=== PATIENT | female | born 1970 | race Caucasian/White ===

== ENCOUNTER 2017-01-02 22:02 | Emergency (ER) | payer OTHER ==
[2017-01-02 22:16] VITALS: BP 117/68; PULSE 76; TEMP 97.6; BMI 27.2
--- NOTE | 2017-01-03 00:23 | PDOC ---
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 Patient reports she is being follow-up by neurology for her dizziness and is scheduled to have a MRI next week. She states having basic lab work done, but does not know results. Patient also has complaints of occasional fatigue, midsternal chest discomfort, lightheadedness, confusion, and nervousness. The patient denies fever, chills, cough, SOB, chest pain, and palpitations. The patient denies abdominal pain, nausea, vomiting, and diarrhea. Allergies: NKDA Social History: Denies alcohol, tobacco, or drug use. Past Surgical History: brain AVM in 1988 PCP: Dr. Vicki Monteiro <Tamia Orozco - Last Filed: 01/03/17 02:50> - General History Source: Patient <Tom Márquez - Last Filed: 01/03/17 03:06> - General Chief Complaint: Lightheaded Stated Complaint: LIGHTHEADED Time Seen by Provider: 01/03/17 00:22 Past History <Tamia Orozco - Last Filed: 01/03/17 02:50> - Past Medical History Other medical history: RA, brain AVM - Surgical History Neurologic Surgery: Yes (BRAIN) - Psycho/Social/Smoking Cessation Hx Anxiety: No Suicidal Ideation: No Smoking History: Never smoked Information on smoking cessation initiated: No Hx Alcohol Use: No Drug/Substance Use Hx: No Substance Use Type: None <Tom Márquez - Last Filed: 01/03/17 03:06> - Past Medical History Allergies/Adverse Reactions: Allergies Allergy/AdvReac Type Severity Reaction Status Date / Time No Known Allergies Allergy Verified 01/02/17 22:12 Home Medications: Ambulatory Orders Cephalexin Monohydrate [Keflex -] 500 mg PO BID #14 capsule 01/03/17 Review of Systems - Review of Systems Able to Perform ROS?: Yes Comments:: 01/03/17 00:45 CONSTITUTIONAL: +fatigue Absent: fever, no chills EYES: Absent: visual changes ENT: Absent: ear pain, no sore throat CARDIOVASCULAR: +midsternal chest discomfort, lightheadedness Absent: chest pain, no palpitations RESPIRATORY: Absent: cough, no SOB GI: Absent: abdominal pain, no nausea, no vomiting, no constipation, no diarrhea GENITOURINARY: Absent: dysuria, no frequency, no hematuria MUSKULOSKELETAL: Absent: back pain, no arthralgia, no myalgia SKIN: Absent: rash NEURO: +dizziness Absent: headache PSYCH: +nervousness <Tamia Orozco - Last Filed: 01/03/17 02:50> *Physical Exam - Vital Signs Last Vital Signs Temp Pulse Resp BP Pulse Ox 97.6 F 76 18 117/68 98 01/02/17 22:12 01/02/17 22:12 01/02/17 22:12 01/02/17 22:12 01/02/17 22:12 - Physical Exam Comments: 01/03/17 00:45 GENERAL: Well-appearing, well-nourished. No apparent distress. HEENT: Normocephalic, atraumatic. PERRL, EOM intact. CARDIOVASCULAR: Normal S1, S2. Regular rate and rhythm. PULMONARY: Clear to auscultation bilaterally. ABDOMEN: Soft, non-distended, non-tender. EXTREMITIES: Normal ROM in all four extremities. No gross deformities. SKIN: Warm, dry. No rash NEUROLOGICAL: No focal neurological deficits. <Tamia Orozco - Last Filed: 01/03/17 02:50> - Vital Signs Last Vital Signs Temp Pulse Resp BP Pulse Ox 97.6 F 76 18 117/68 98 01/02/17 22:12 01/02/17 22:12 01/02/17 22:12 01/02/17 22:12 01/02/17 22:12 <Tom Márquez - Last Filed: 01/03/17 03:06> ED Treatment Course - LABORATORY CBC & Chemistry Diagram: 01/03/17 01:10 01/03/17 01:10 - RADIOLOGY Radiograph Interpretation: 01/03/17 02:50 EXAM: CT of the brain without contrast. Reviewed by Imaging impregnation operator: There is no intra/extra-axial hemorrhage, vasogenic edema/focal mass effect, CT evidence of acute infarction, interval ventriculomegaly or gross change except for absence of the right sphenoid sinus disease present on the prior. Impression: no hemorrhage or gross acute infarct. <Taima Orozco - Last Filed: 01/03/17 02:50> - LABORATORY CBC & Chemistry Diagram: 01/03/17 01:10 01/03/17 01:10 <Tom Márquez - Last Filed: 01/03/17 03:06> Medical Decision Making - Medical Decision Making 01/03/17 03:05 Dr. Márquez: The scribe's documentation has been prepared under my direction and personally reviewed by me in its entirery. I confirm that the note above accurately reflects all work, treatment, procedures, and medical decision making performed by me. Head CT,blood work return to be normal. Patient found to have early urinary tract infection. Will treat with Keflex 500 twice a day. Patient advised to continue her appointment with neurology <Tom Márquez - Last Filed: 01/03/17 03:06> *DC/Admit/Observation/Transfer - Attestations Scribe Attestion: 01/03/17 00:45 Documentation prepared by Tamia Orozco, acting as medical oncologist for Tom Márquez MD <Tamia Orozco - Last Filed: 01/03/17 02:50> - Discharge Dispostion Admit: No <Tom Márquez - Last Filed: 01/03/17 03:06> Diagnosis at time of Disposition: Lightheaded UTI (urinary tract infection) Qualifiers: Urinary tract infection type: site unspecified Hematuria presence: without hematuria Qualified Code(s): N39.0 - Urinary tract infection, site not specified - Discharge Dispostion Disposition: HOME Condition at time of disposition: Stable - Prescriptions Prescriptions: Cephalexin Monohydrate [Keflex -] 500 mg PO BID #14 capsule - Referrals Referrals: Vicki Wild MD [Primary Care Provider] - - Patient Instructions Printed Discharge Instructions: DI for Urinary Tract Infection (UTI), DI for Dizziness-Nonvertigo
[2017-01-03 01:22] LABS: BASOPHIL 1.2 % (0-2.0); EOSINOPHIL 4.1 % (0-4.5); MCH 23.6 pg (25.7-33.7); MCHC 31.7 g/dl (32.0-36.0); MEAN CELL VOLUME 74.4 fl (80-96); MEAN PLT VOLUME 8.4 fl (7.5-11.1); NEUTROPHILS 66.1 % (42.8-82.8); PLATELET COUNT 286 K/MM3 (134-434); RDW 16.7 % (11.6-15.6); WHITE BLOOD COUNT 7.5 K/mm3 (4.0-10.0)
[2017-01-03 01:46] LABS: INR 1.04 (0.82-1.09); PROTHROMBIN TIME (PATIENT) 11.5 SEC (9.98-11.88)
[2017-01-03 01:56] LABS: ALBUMIN 3.8 g/dl (3.4-5.0); ANION GAP 8 (8-16); CALCIUM 8.5 mg/dL (8.5-10.1); CO2 28 mmol/L (21-32); CREATININE 0.7 mg/dL (0.55-1.02); GLUCOSE,RANDOM 91 mg/dL (74-106); MAGNESIUM 2.2 mg/dL (1.8-2.4); SGOT/AST 13 U/L (15-37); SGPT/ALT 19 U/L (12-78)
[2017-01-03 01:56] LABS: URINE APPEARANCE CLEAR; URINE BILIRUBIN NEGATIVE (NEGATIVE); URINE BLOOD NEGATIVE (NEGATIVE); URINE COLOR LTYELLOW; URINE GLUCOSE (UA) NEGATIVE (NEGATIVE); URINE KETONE NEGATIVE (NEGATIVE); URINE NITRITE NEGATIVE (NEGATIVE); URINE PROTEIN NEGATIVE (NEGATIVE); URINE UROBILINOGEN NEGATIVE E.U./dl (0.2-1.0)
[2017-01-03 01:57] LABS: URINE LEUK ESTERASE 2+ (NEGATIVE)
[2017-01-03 01:58] LABS: ALK PHOS 71 U/L (45-117); BILIRUBIN,TOTAL 0.3 mg/dL (0.2-1.0); TOT PROT 7.4 g/dl (6.4-8.2)
[2017-01-03 02:07] LABS: URINE MUCUS RARE; URINE RBC 2 /hpf (0-3); URINE WBC 12 /hpf (3-5)
[2017-01-03] MEDS ORDERED: CEPHALEXIN MONOHYDRATE 500 MG CAPSULE (UD) PO ONE (03:03)
[2017-01-03] MEDS ORDERED: CEPHALEXIN MONOHYDRATE 250 MG CAPSULE (FP) ONE (03:16)
== END 2017-01-03 03:24 | disposition home or self-care (01) ==
LOC: JER 22:02
DX: N39.0 Urinary tract infection, site not specified (principal); Z86.69 Personal history of other diseases of the nervous system and sense organs
CPT/HCPCS: 36415; 70450-TC; 80053; 81003; 81015; 83735; 84703; 85025; 85610; 99281-25

== ENCOUNTER 2017-06-18 17:57 | Emergency (ER) | payer OTHER ==
[2017-06-18 18:24] VITALS: BMI 26.6
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
[2017-06-18 21:37] LABS: BASOPHIL 0.9 % (0-2.0); MCH 25.8 pg (25.7-33.7); MCHC 32.5 g/dl (32.0-36.0); MEAN CELL VOLUME 79.4 fl (80-96); MEAN PLT VOLUME 8.6 fl (7.5-11.1); NEUTROPHILS 62.7 % (42.8-82.8); PLATELET COUNT 234 K/MM3 (134-434); RDW 17.7 % (11.6-15.6); WHITE BLOOD COUNT 7.4 K/mm3 (4.0-10.0)
[2017-06-18 21:45] LABS: INR 1.11 (0.82-1.09); PROTHROMBIN TIME (PATIENT) 12.2 SEC (9.98-11.88)
[2017-06-18 21:57] LABS: ALBUMIN 3.7 g/dl (3.4-5.0); ANION GAP 6 (8-16); BILIRUBIN,TOTAL 0.3 mg/dL (0.2-1.0); CALCIUM 8.9 mg/dL (8.5-10.1); CO2 29 mmol/L (21-32); CREATININE 0.6 mg/dL (0.55-1.02); GLUCOSE,RANDOM 86 mg/dL (74-106); SGOT/AST 20 U/L (15-37); SGPT/ALT 31 U/L (12-78); TOT PROT 6.8 g/dl (6.4-8.2)
[2017-06-18 21:59] LABS: ALK PHOS 88 U/L (45-117); CPK 66 IU/L (26-192); TROPONIN I < 0.02 ng/ml (0.00-0.05)
[2017-06-19 03:19] VITALS: BP 101/55; PULSE 82; TEMP 97.9
[2017-06-19 03:34] LABS: CPK 55 IU/L (26-192)
[2017-06-19 03:35] LABS: TROPONIN I < 0.02 ng/ml (0.00-0.05)
--- NOTE | 2017-06-19 03:49 | PDOC ---
*Physical Exam - Vital Signs Last Vital Signs Temp Pulse Resp BP Pulse Ox 97.9 F 82 16 101/55 98 06/19/17 03:18 06/19/17 03:18 06/19/17 03:18 06/19/17 03:18 06/19/17 03:18 ED Treatment Course - LABORATORY CBC & Chemistry Diagram: 06/18/17 21:15 06/18/17 21:15 - ADDITIONAL ORDERS Additional order review: Laboratory Results 06/19/17 06/18/17 06/18/17 02:07 21:15 21:15 INR 1.11 Sodium 142 Potassium 4.5 Chloride 107 Carbon Dioxide 29 Anion Gap 6 L BUN 19 H Creatinine 0.6 Creat Clearance w eGFR > 60 Random Glucose 86 Calcium 8.9 Total Bilirubin 0.3 AST 20 D ALT 31 D Alkaline Phosphatase 88 D Creatine Kinase 55 66 Troponin I < 0.02 < 0.02 Total Protein 6.8 Albumin 3.7 06/18/17 21:15 RBC 4.24 MCV 79.4 L MCHC 32.5 RDW 17.7 H MPV 8.6 Neutrophils % 62.7 Lymphocytes % 24.3 Monocytes % 7.1 Eosinophils % 5.0 H Basophils % 0.9 *DC/Admit/Observation/Transfer Diagnosis at time of Disposition: Chest pain - Discharge Dispostion Disposition: HOME Condition at time of disposition: Stable Admit: No - Referrals Referrals: Vicki Wild MD [Primary Care Provider] - - Patient Instructions Printed Discharge Instructions: DI for Chest Pain Additional Instructions: Please follow up with your primary doctor or medical management trainer as needed if symptoms get worse. REturn to ER as needed - Post Discharge Activity
--- NOTE | 2017-06-22 18:43 | EKG ---
Test Reason : Blood Pressure : / mmHG Vent. Rate : 076 BPM Atrial Rate : 076 BPM P-R Int : 168 ms QRS Dur : 082 ms QT Int : 378 ms P-R-T Axes : 059 039 044 degrees QTc Int : 425 ms POOR DATA QUALITY, INTERPRETATION MAY BE ADVERSELY AFFECTED NORMAL SINUS RHYTHM NORMAL ECG WHEN COMPARED WITH ECG OF 16-JUL-2016 11:37, NO SIGNIFICANT CHANGE WAS FOUND Confirmed by ELIAN MILLIGAN MD ([id number]) on 06/22/2017 6:42:45 PM Referred By: Confirmed By:ELIAN MILLIGAN MD
== END 2017-06-19 04:00 | disposition home or self-care (01) ==
LOC: JER 17:57
DX: R07.9 Chest pain, unspecified (principal)
CPT/HCPCS: 36415; 71275-TC; 80053; 84484; 85025; 85610; 93005; 93010; 99283-25

== ENCOUNTER 2018-03-09 21:38 | Emergency (ER) | payer OTHER ==
[2018-03-09 22:16] VITALS: BP 129/64; PULSE 98; TEMP 97.6; BMI 27.3
--- NOTE | 2018-03-09 23:15 | PDOC ---
History of Present Illness - General History Source: Patient Exam Limitations: No Limitations - History of Present Illness Initial Comments: 03/09/18 23:26 The patient is a 47 year old female with no significant past medical history who presents to the ED complaining of approximately 5 days of right chest wall and right shoulder pain. The patient states she tripped and fell on the sidewalk 5 days ago at the onset of her pain. She was seen at an Urgent Care facility, where she reportedly had a negative chest x-ray. Since then she continues to have persistent right anterior chest wall pain and right shoulder pain. Pain is worse with deep inspiration and worse with overhead motion of her RUE. No shortness of breath, wheezing, or cough. No fever or chills. No numbness or tingling. <Sanjuana Henderson - Last Filed: 03/09/18 23:26> <Juliana Wheatley - Last Filed: 03/10/18 02:14> - General Chief Complaint: Pain Stated Complaint: CHEST PAIN & BACK PAIN Time Seen by Provider: 03/09/18 23:11 Past History <Sanjuana Henderson - Last Filed: 03/09/18 23:26> - Past Medical History COPD: No - Surgical History Neurologic Surgery: Yes (BRAIN in 1988) - Suicide/Smoking/Psychosocial Hx Smoking History: Never smoked Have you smoked in the past 12 months: No Information on smoking cessation initiated: No Hx Alcohol Use: No Drug/Substance Use Hx: No Substance Use Type: None <Juliana Wheatley - Last Filed: 03/10/18 02:14> - Past Medical History Allergies/Adverse Reactions: Allergies Allergy/AdvReac Type Severity Reaction Status Date / Time No Known Allergies Allergy Verified 03/09/18 22:13 Home Medications: Ambulatory Orders Aspirin 81 mg PO DAILY 03/09/18 Atorvastatin Ca [Lipitor] 10 mg PO HS 03/09/18 Review of Systems - Review of Systems Able to Perform ROS?: Yes Comments:: 03/09/18 23:30 GENERAL/CONSTITUTIONAL: No fever or chills. No weakness. HEAD, EYES, EARS, NOSE AND THROAT: No change in vision. No ear pain or discharge. No sore throat. CARDIOVASCULAR: No chest pain or shortness of breath. RESPIRATORY: No cough, wheezing, or hemoptysis. GASTROINTESTINAL: No nausea, vomiting, diarrhea or constipation. GENITOURINARY: No dysuria, frequency, or change in urination. MUSCULOSKELETAL: +Pain is right anterior chest wall/right shoulder/right scapular area. No neck pain. SKIN: No rash NEUROLOGIC: No headache, vertigo, loss of consciousness, or change in strength/ sensation. ENDOCRINE: No increased thirst. No abnormal weight change. HEMATOLOGIC/LYMPHATIC: No anemia, easy bleeding, or history of blood clots. ALLERGIC/IMMUNOLOGIC: No hives or skin allergy. <Sanjuana Henderson - Last Filed: 03/09/18 23:26> *Physical Exam - Vital Signs Last Vital Signs Temp Pulse Resp BP Pulse Ox 97.6 F 98 H 18 129/64 99 03/09/18 22:13 03/09/18 22:13 03/09/18 22:13 03/09/18 22:13 03/09/18 22:13 - Physical Exam Comments: 03/09/18 23:31 GENERAL: Awake, alert, and fully oriented, in no acute distress HEAD: No signs of trauma EYES: PERRLA, EOMI, sclera anicteric, conjunctiva clear ENT: Auricles normal inspection, hearing grossly normal, nares patent, oropharynx clear without exudates. Moist mucosa NECK: Normal ROM, supple, no lymphadenopathy, JVD, or masses LUNGS: Breath sounds equal, clear to auscultation bilaterally. No wheezes, and no crackles HEART: Regular rate and rhythm, normal S1 and S2, no murmurs, rubs or gallops ABDOMEN: Soft, nontender, normoactive bowel sounds. No guarding, no rebound. No masses EXTREMITIES: RUE: Right shoulder, right anterior chest wall, right scapular pain that is reproducible with tenderness and overhead motion. All other extremities: Normal range of motion, no edema. No clubbing or cyanosis. No cords, erythema, or tenderness NEUROLOGICAL: Cranial nerves II through XII grossly intact. Normal speech, normal gait SKIN: Warm, Dry, normal turgor, no rashes or lesions noted. <Sanjuana Henderson - Last Filed: 03/09/18 23:26> - Vital Signs Last Vital Signs Temp Pulse Resp BP Pulse Ox 97.6 F 98 H 18 129/64 99 03/09/18 22:13 03/09/18 22:13 03/09/18 22:13 03/09/18 22:13 03/09/18 22:13 <Juliana Wheatley - Last Filed: 03/10/18 02:14> Medical Decision Making - Medical Decision Making 03/10/18 02:06 Scan of the chest was done without contrast to look for occult rib cage fracture and possible pneumothorax. Chest CT without contrast findings. Thoracic cage is intact. No fractures are identified. Specifically, no scapular fractures are seen. No pulmonary injury. No pneumothorax or pneumomediastinum. No pulmonary infiltrates or contusions. Soft tissues are unremarkable. Right renal cyst noted. Incidental note made of cholelithiasis. Impression musculoskeletal pain status post a fall <Juliana Wheatley - Last Filed: 03/10/18 02:14> *DC/Admit/Observation/Transfer - Attestations Scribe Attestion: 03/09/18 23:32 Documentation prepared by Sanjuana Henderson, acting as medical staff coordinator for Juliana Wheatley MD. <Sanjuana Henderson - Last Filed: 03/09/18 23:26> <Juliana Wheatley - Last Filed: 03/10/18 02:14> Diagnosis at time of Disposition: Pain of left scapula, Rib pain on left side - Discharge Dispostion Disposition: HOME Condition at time of disposition: Stable - Referrals Referrals: Vicki Wild MD [Primary Care Provider] - - Patient Instructions Printed Discharge Instructions: DI for Rib Contusion, DI for Musculoskeletal Pain Additional Instructions: please take motrin or tylenol for pain If you develop shortness of breath or worsening symptoms return to the ER - Post Discharge Activity
[2018-03-10] MEDS ORDERED: IBUPROFEN 600 MG TABLET (FP) PO ONE ×2 (02:06→02:12)
--- NOTE | 2018-03-10 10:40 | EKG ---
Test Reason : Blood Pressure : / mmHG Vent. Rate : 078 BPM Atrial Rate : 078 BPM P-R Int : 160 ms QRS Dur : 072 ms QT Int : 380 ms P-R-T Axes : 020 024 025 degrees QTc Int : 433 ms NORMAL SINUS RHYTHM NORMAL ECG WHEN COMPARED WITH ECG OF 18-JUN-2017 18:09, NO SIGNIFICANT CHANGE WAS FOUND Confirmed by HIRAM CABRAL MD ([id number]) on 03/10/2018 10:40:24 AM Referred By: Confirmed By:HIRAM CABRAL MD
== END 2018-03-10 02:50 | disposition home or self-care (01) ==
LOC: JER 21:38
DX: R07.1 Chest pain on breathing (principal); M25.512 Pain in left shoulder; R07.81 Pleurodynia; W18.39XA Other fall on same level, initial encounter; Y93.89 Activity, other specified; Y92.480 Sidewalk as the place of occurrence of the external cause; Y99.8 Other external cause status
CPT/HCPCS: 71046-TC-FY; 71101-TC-FY; 71250-TC; 93005; 93010; 99282-25

== ENCOUNTER 2019-01-04 04:00 | Inpatient (IN) | payer OTHER ==
--- NOTE | 2019-01-04 04:17 | PDOC ---
Attending Attestation - Resident Resident Name: Elicia Hackett - ED Attending Attestation I have performed the following: I have examined & evaluated the patient, The case was reviewed & discussed with the resident, I agree w/resident's findings & plan - HPI HPI: 01/04/19 06:32 Pt comes with epigastric pain. - Physicial Exam PE: 01/04/19 06:33 Agree with resident exam - Medical Decision Making 01/04/19 06:31 Pt has lipase of 3000. 01/04/19 06:[address] abd and pelvis.
[2019-01-04] MEDS ORDERED: ACETAMINOPHEN 1000 MG/100 ML VIAL (NON FORMULARY) IVPB ONE (04:33)
[2019-01-04] MEDS ORDERED: MAG HYDROX/AL HYDROX/SIMETH 30 ML UNIT-DOSE CUP PO ONE (04:33)
[2019-01-04] MEDS ORDERED: SODIUM CHLORIDE 1,000 ML IV STA (04:33)
[2019-01-04] MEDS ORDERED: FAMOTIDINE 20 MG/50 ML IVPB 20 MG/50 ML MG IVPB ONE ×2 (04:33→04:49)
[2019-01-04] MEDS ORDERED: ACETAMINOPHEN INJECTION 100 ML IVPB ONE (04:48)
[2019-01-04] MEDS ORDERED: MAG HYDROX/AL HYDROX/SIMETH 30 ML UNIT-DOSE CUP ONE (04:49)
[2019-01-04 04:58] LABS: BASO % 0.7 % (0-2.0); EOS % 3.6 % (0-4.5); HEMATOCRIT 36.8 % (32.4-45.2); HEMOGLOBIN 12.4 GM/dL (10.7-15.3); LYMPH % 18.1 % (8-40); MCH 27.6 pg (25.7-33.7); MCHC 33.7 g/dl (32.0-36.0); MEAN CELL VOLUME 82.1 fl (80-96); MEAN PLT VOLUME 8.4 fl (7.5-11.1); MONO % 7.8 % (3.8-10.2); NEUT % 69.8 % (42.8-82.8); PLATELET COUNT 270 K/MM3 (134-434); RBC 4.48 M/mm3 (3.60-5.2); RDW 15.4 % (11.6-15.6); WHITE BLOOD COUNT 7.6 K/mm3 (4.0-10.0)
[2019-01-04 05:48] LABS: ALBUMIN 3.9 g/dl (3.4-5.0); ALK PHOS 84 U/L (45-117); ANION GAP 4 MMOL/L (8-16); BILIRUBIN,TOTAL 0.3 mg/dL (0.2-1); BLOOD UREA NITROGEN 17 mg/dL (7-18); CALCIUM 8.5 mg/dL (8.5-10.1); CHLORIDE 105 mmol/L (98-107); CO2 29 mmol/L (21-32); CREATININE 0.7 mg/dL (0.55-1.3); GLUCOSE,RANDOM 98 mg/dL (74-106); POTASSIUM 4.5 mmol/L (3.5-5.1); SGOT/AST 16 U/L (15-37); SGPT/ALT 29 U/L (13-61); SODIUM 138 mmol/L (136-145); TOT PROT 7.6 g/dl (6.4-8.2)
[2019-01-04] MEDS ORDERED: morphine CARPU-JECT 4 MG/1 ML DISP.SYRIN IVPUSH ONE (05:51)
--- NOTE | 2019-01-04 06:09 | PDOC ---
History of Present Illness - General Chief Complaint: Pain Stated Complaint: ABD PAIN Time Seen by Provider: 01/04/19 04:13 History Source: Patient Exam Limitations: No Limitations - History of Present Illness Travel History: No Initial Comments: 01/04/19 06:04 Pt is a 48yo F with PMH of GERD, HLD, AVM malformation s/p clip resulting in L arm weakness and contraction, Joint Pain presenting to ED with complaints of epigastric pain. Pain started at 5:30 pm last night but has gotten worse in the past hour or so. Pain is epigastric radiates to the back, is sharp and constant 9/10 associated with nausea. Pt denies vomiting, diarrhea, constipation, fevers , chills, urinary symptoms, flank pain, headache, syncope. She does not recall food causing her pain. Grandmother had triple bypass and mother has CAD. Has had c-sections in the past. Denies alcohol use. PMD: [place] PMH: see hpi PSH: Meds: Atorvastatin, Protonix, Naprosyn Allergies: nkda Social: denies Past History - Past Medical History Allergies/Adverse Reactions: Allergies Allergy/AdvReac Type Severity Reaction Status Date / Time No Known Allergies Allergy Verified 01/04/19 04:15 Home Medications: Ambulatory Orders Aspirin 81 mg PO DAILY 03/09/18 Atorvastatin Ca [Lipitor] 10 mg PO HS 03/09/18 Naproxen 500 mg PO BID 01/04/19 Pantoprazole Sodium 40 mg PO DAILY 01/04/19 COPD: No GI Disorders: Yes - Surgical History Neurologic Surgery: Yes (BRAIN in 1988) - Suicide/Smoking/Psychosocial Hx Smoking History: Never smoked Have you smoked in the past 12 months: No Information on smoking cessation initiated: No Hx Alcohol Use: No Drug/Substance Use Hx: No Substance Use Type: None Review of Systems - Review of Systems Constitutional: No: Chills, Fever, Weakness HEENTM: No: Symptoms Reported Respiratory: No: Cough, Shortness of Breath Cardiac (ROS): No: Chest Pain, Lightheadedness, Palpitations, Syncope ABD/GI: Yes: See HPI, Nausea, Abdominal cramping. No: Constipated, Diarrhea, Rectal Bleeding, Vomiting, Tarry Stools : No: Burning, Dysuria, Flank Pain, Hematuria Musculoskeletal: Yes: See HPI, Back Pain Integumentary: No: Symptoms Reported Neurological: No: Headache, Numbness, Tingling, Tremors *Physical Exam - Vital Signs Last Vital Signs Temp Pulse Resp BP Pulse Ox 97.4 F L 78 18 133/80 100 01/04/19 04:00 01/04/19 04:00 01/04/19 04:00 01/04/19 04:00 01/04/19 04:00 - Physical Exam General Appearance: Yes: Nourished, Appropriately Dressed, Mild Distress HEENT: positive: EOMI, HOLDEN. negative: Scleral Icterus (R), Scleral Icterus (L) Neck: positive: Trachea midline, Supple. negative: Lymphadenopathy (R), Lymphadenopathy (L) Respiratory/Chest: positive: Lungs Clear, Normal Breath Sounds. negative: Crackles, Rales, Rhonchi, Stridor Cardiovascular: positive: Regular Rhythm, Regular Rate, S1, S2. negative: Edema , JVD, Murmur Vascular Pulses: Carotid (R): 2+, Carotid (L): 2+, Dorsalis-Pedis (R): 2+, Doralis-Pedis (L): 2+ Gastrointestinal/Abdominal: positive: Normal Bowel Sounds, Soft, Tenderness ( slight epigstric tenderness). negative: Distended, Guarding, Rebound, Hernia, Mass Musculoskeletal: negative: CVA Tenderness Extremity: positive: Normal Capillary Refill, Pelvis Stable. negative: Swelling Integumentary: positive: Normal Color, Dry, Warm Neurologic: positive: commercial lending assistant II-XII NML intact, Fully Oriented, Alert, Normal Mood/ Affect, Normal Response, Motor Strength 5/5 Moderate Sedation - Procedure Monitoring Vital Signs: Procedure Monitoring Vital Signs Temperature 97.4 F L 01/04/19 04:00 Pulse Rate 78 01/04/19 04:00 Respiratory Rate 18 01/04/19 04:00 Blood Pressure 133/80 01/04/19 04:00 O2 Sat by Pulse Oximetry (%) 100 01/04/19 04:00 ED Treatment Course - LABORATORY CBC & Chemistry Diagram: 01/04/19 04:45 01/04/19 04:45 - ADDITIONAL ORDERS Additional order review: Laboratory Results 01/04/19 01/04/19 01/04/19 04:45 04:45 04:45 Sodium 138 Potassium 4.5 Chloride 105 Carbon Dioxide 29 Anion Gap 4 L BUN 17 Creatinine 0.7 Creat Clearance w eGFR > 60 Random Glucose 98 Calcium 8.5 Total Bilirubin 0.3 AST 16 ALT 29 Alkaline Phosphatase 84 Troponin I < 0.02 Total Protein 7.6 Albumin 3.9 Lipase 3000 H 01/04/19 04:45 RBC 4.48 MCV 82.1 MCHC 33.7 RDW 15.4 D MPV 8.4 Neutrophils % 69.8 Lymphocytes % 18.1 D Monocytes % 7.8 Eosinophils % 3.6 Basophils % 0.7 - RADIOLOGY Radiology Studies Ordered: Category Date Time Status ABDOMEN & PELVIS CT WITH CONTR [CT] Stat CT Scan 01/04/19 05:53 Ordered CHEST PA & LAT [RAD] Stat Radiology 01/04/19 04:37 Ordered - Medications Given in the ED: ED Medications Discontinued Medications Generic Name Dose Route Start Last Admin Trade Name Seanq PRN Reason Stop Dose Admin Acetaminophen 1,000 mg 01/04/19 04:33 01/04/19 04:35 Ofirmev Injection - IVPB 01/04/19 04:34 1,000 mg ONCE ONE Administration Al Hydroxide/Mg Hydroxide 30 ml 01/04/19 04:33 01/04/19 04:35 Mylanta Oral Suspension - PO 01/04/19 04:34 30 ml ONCE ONE Administration Famotidine/Sodium Chloride 20 mg in 50 mls @ 100 mls/hr 01/04/19 04:33 04:40 Pepcid 20 Mg Premixed Ivpb - IVPB 01/04/19 05:02 100 mls/hr ONCE ONE Administration Sodium Chloride 1,000 mls @ 1,000 mls/hr 01/04/19 04:33 01/04/19 04:35 Normal Saline - IV 01/04/19 05:32 1,000 mls/hr ASDIR STA Administration Medical Decision Making - Medical Decision Making 01/04/19 06:07 Pt is a 48yo F with PMH of GERD, HLD, Joint Pain presenting to ED with complaints of epigastric pain. Pain started at 5:30 pm last night but has gotten worse in the past hour or so. Pain is epigastric radiates to the back, is sharp and constant 9/10 associated with nausea. Pt denies vomiting, diarrhea , constipation, fevers, chills, urinary symptoms, flank pain, headache, syncope. She does not recall food causing her pain. Grandmother had triple bypass and mother has CAD. Has had c-sections in the past. Denies alcohol use. Vitals: wnl PE: slight epigastric tenderness. Ddx includes but not limited to: pancreatitis, cholecystitis, GERD, esophagitis , cholangitis, nephrolithiasis, ACS -cbc, cmp, lipase, troponin -ekg, cxr -iv fluids, tylenol, zofran, pepcid, maalox Lab values significant for lipase 3000. LFTs wnl. Will order CT and US PT states she was feeling better but feels pain returning. Will give 4mg iv morphine and fluids 01/04/19 06:[address] pending, US pending. Will admit for pancreatitis. MB sent Signed out to Dr. El 01/04/19 06:56 *DC/Admit/Observation/Transfer Diagnosis at time of Disposition: Pancreatitis Qualifiers: Chronicity: acute Pancreatitis type: unspecified pancreatitis type Acute pancreatitis complication: unspecified Qualified Code(s): K85.90 - Acute pancreatitis without necrosis or infection, unspecified - Discharge Dispostion Condition at time of disposition: Good Decision to Admit order: Yes - Referrals Referrals: Vicki Wild MD [Primary Care Provider] - - Patient Instructions - Post Discharge Activity
[2019-01-04] MEDS ORDERED: LACTATED RINGERS SOLUTION 1000 ML INFUS.BAG IV ONE (06:41)
[2019-01-04] MEDS ORDERED: morphine SULFATE 4 MG/ML VIAL ONE (06:59)
--- NOTE | 2019-01-04 07:11 | PDOC ---
*Physical Exam - Vital Signs Last Vital Signs Temp Pulse Resp BP Pulse Ox 97.4 F L 78 18 133/80 100 01/04/19 04:00 01/04/19 04:00 01/04/19 04:00 01/04/19 04:00 01/04/19 04:00 ED Treatment Course - LABORATORY CBC & Chemistry Diagram: 01/04/19 04:45 01/04/19 04:45 - ADDITIONAL ORDERS Additional order review: Laboratory Results 01/04/19 01/04/19 01/04/19 05:50 04:45 04:45 Sodium Potassium Chloride Carbon Dioxide Anion Gap BUN Creatinine Creat Clearance w eGFR Random Glucose Calcium Total Bilirubin AST ALT Alkaline Phosphatase Troponin I < 0.02 Total Protein Albumin Triglycerides 99 Lipase 3000 H 01/04/19 04:45 Sodium 138 Potassium 4.5 Chloride 105 Carbon Dioxide 29 Anion Gap 4 L BUN 17 Creatinine 0.7 Creat Clearance w eGFR > 60 Random Glucose 98 Calcium 8.5 Total Bilirubin 0.3 AST 16 ALT 29 Alkaline Phosphatase 84 Troponin I Total Protein 7.6 Albumin 3.9 Triglycerides Lipase 01/04/19 04:45 RBC 4.48 MCV 82.1 MCHC 33.7 RDW 15.4 D MPV 8.4 Neutrophils % 69.8 Lymphocytes % 18.1 D Monocytes % 7.8 Eosinophils % 3.6 Basophils % 0.7 - Medications Given in the ED: ED Medications Discontinued Medications Generic Name Dose Route Start Last Admin Trade Name Freq PRN Reason Stop Dose Admin Acetaminophen 1,000 mg 01/04/19 04:33 01/04/19 04:35 Ofirmev Injection - IVPB 01/04/19 04:34 1,000 mg ONCE ONE Administration Al Hydroxide/Mg Hydroxide 30 ml 01/04/19 04:33 01/04/19 04:35 Mylanta Oral Suspension - PO 01/04/19 04:34 30 ml ONCE ONE Administration Famotidine/Sodium Chloride 20 mg in 50 mls @ 100 mls/hr 01/04/19 04:33 04:40 Pepcid 20 Mg Premixed Ivpb - IVPB 01/04/19 05:02 100 mls/hr ONCE ONE Administration Sodium Chloride 1,000 mls @ 1,000 mls/hr 01/04/19 04:33 01/04/19 04:35 Normal Saline - IV 01/04/19 05:32 1,000 mls/hr ASDIR STA Administration Medical Decision Making - Medical Decision Making 01/04/19 07:05 Pt is a 48yo F with PMH of GERD, HLD, AVM malformation s/p clip resulting in L arm weakness and contraction, Joint Pain presenting to ED with complaints of epigastric pain. Pain started at 5:30 pm last night but has gotten worse in the past hour or so. Pain is epigastric radiates to the back, is sharp and constant 9/10 associated with nausea. Pt denies vomiting, diarrhea, constipation, fevers , chills, urinary symptoms, flank pain, headache, syncope. She does not recall food causing her pain. Grandmother had triple bypass and mother has CAD. Has had c-sections in the past. Denies alcohol use. PMD: [place] PMH: see hpi PSH: Meds: Atorvastatin, Protonix, Naprosyn Allergies: nkda Social: denies Initial Vital Signs Temp Pulse Resp BP Pulse Ox 97.4 F L 78 18 133/80 100 01/04/19 04:00 01/04/19 04:00 01/04/19 04:00 01/04/19 04:00 01/04/19 04:00 Afebrile. No tachycardia. No tachypnea. Mild hypertension. No hypoxia on room air. Medications given: normal saline bolus 1000 cc, pepcid, maalox, morphine 4 mg IV CBC WBC 7.6 K/mm3 (4.0-10.0) 01/04/19 04:45 RBC 4.48 M/mm3 (3.60-5.2) 01/04/19 04:45 Hgb 12.4 GM/dL (10.7-15.3) 01/04/19 04:45 Hct 36.8 % (32.4-45.2) 01/04/19 04:45 MCV 82.1 fl (80-96) 01/04/19 04:45 MCH 27.6 pg (25.7-33.7) 01/04/19 04:45 MCHC 33.7 g/dl (32.0-36.0) 01/04/19 04:45 RDW 15.4 % (11.6-15.6) D 01/04/19 04:45 Plt Count 270 K/MM3 (134-434) 01/04/19 04:45 MPV 8.4 fl (7.5-11.1) 01/04/19 04:45 Absolute Neuts (auto) 5.3 K/mm3 (1.5-8.0) 01/04/19 04:45 Neutrophils % 69.8 % (42.8-82.8) 01/04/19 04:45 Lymphocytes % 18.1 % (8-40) D 01/04/19 04:45 Monocytes % 7.8 % (3.8-10.2) 01/04/19 04:45 Eosinophils % 3.6 % (0-4.5) 01/04/19 04:45 Basophils % 0.7 % (0-2.0) 01/04/19 04:45 Nucleated RBC % 0 % (0-0) 01/04/19 04:45 No leukocytosis. No anemia. CMP Sodium 138 mmol/L (136-145) 01/04/19 04:45 Potassium 4.5 mmol/L (3.5-5.1) 01/04/19 04:45 Chloride 105 mmol/L (98-107) 01/04/19 04:45 Carbon Dioxide 29 mmol/L (21-32) 01/04/19 04:45 Anion Gap 4 MMOL/L (8-16) L 01/04/19 04:45 BUN 17 mg/dL (7-18) 01/04/19 04:45 Creatinine 0.7 mg/dL (0.55-1.3) 01/04/19 04:45 Creat Clearance w eGFR > 60 (>60) 01/04/19 04:45 Random Glucose 98 mg/dL (74-106) 01/04/19 04:45 Calcium 8.5 mg/dL (8.5-10.1) 01/04/19 04:45 Total Bilirubin 0.3 mg/dL (0.2-1) 01/04/19 04:45 AST 16 U/L (15-37) 01/04/19 04:45 ALT 29 U/L (13-61) 01/04/19 04:45 Alkaline Phosphatase 84 U/L (45-117) 01/04/19 04:45 Troponin I < 0.02 ng/ml (0.00-0.05) 01/04/19 04:45 Total Protein 7.6 g/dl (6.4-8.2) 01/04/19 04:45 Albumin 3.9 g/dl (3.4-5.0) 01/04/19 04:45 Triglycerides 99 mg/dL (0-150) 01/04/19 05:50 Lipase 3000 U/L (73-393) H 01/04/19 04:45 No electrolyte abnormalities. No RAY. No transaminitis. Normal troponin. Normal triglycerides. Lipase elevated >3X normal plus symptoms. Pt has pancreatitis. Pending admission. [facility] CRITERIA: WBC<16k - 0 Age<55 - 0 Glucose<200 - 0 AST<250 - 0 LDH - not ordered Maximum value would be 1 if LDH were to be elevated, severe pancreatitis unlikely. No indication for CT. CT canceled. Pending abdominal US. 01/04/19 08:[address] Harish Crandall about the case, IM resident, pending admission to Dr. Cai's service. 01/04/19 08:52 Official RUQ US report: overdistended GB. borderline wall thickness. trace pericholecystic fluid. CBD slightly prominent 0.7 cm. no intraductal calculus. no free intraperitoneal fluid identified. Microblog sent to Dr. Harish Crandall with update. *DC/Admit/Observation/Transfer Diagnosis at time of Disposition: Pancreatitis Qualifiers: Chronicity: acute Pancreatitis type: unspecified pancreatitis type Acute pancreatitis complication: unspecified Qualified Code(s): K85.90 - Acute pancreatitis without necrosis or infection, unspecified - Discharge Dispostion Condition at time of disposition: Good - Referrals Referrals: Vicki Wild MD [Primary Care Provider] - - Patient Instructions - Post Discharge Activity
[2019-01-04] MEDS ORDERED: ONDANSETRON 4 MG/2 ML VIAL IVPUSH PRN (09:13)
[2019-01-04] MEDS: LACTATED RINGERS SOLUTION 1,000 ML IV SCH ×3 (10:37→22:41)
[2019-01-04 10:58] VITALS: BMI 29.2
[2019-01-04] MEDS: PANTOPRAZOLE SODIUM 40 MG VIAL IVPUSH SCH (11:27)
[2019-01-04 11:54] LABS: INR 1.09 (0.83-1.09); PROTHROMBIN TIME (PATIENT) 12.9 SEC (9.7-13.0)
[2019-01-04 11:57] LABS: ACTIVATED PTT 34.4 SECONDS (25.2-36.5)
[2019-01-04 11:58] LABS: MAGNESIUM 2.1 mg/dL (1.8-2.4); PHOSPHOROUS 3.2 mg/dL (2.5-4.9)
[2019-01-04 12:01] LABS: TRIGLYCERIDES 94 mg/dL (0-150)
[2019-01-04] MEDS ORDERED: DEXTROSE 5%-WATER - 50 ML IVPB ONE (12:23)
[2019-01-04] MEDS ORDERED: PIPERACILLIN/TAZOBACTAM 3.375 GM VIAL IVPB ONE (12:23)
[2019-01-04] MEDS: MORPHINE SULFATE 2 MG/ML VIAL IVPUSH PRN ×2 (12:29→20:30)
[2019-01-04] MEDS ORDERED: PIPERACILLIN/TAZOB 3.375 GM 3.375 GM in DEXTROSE 5%-WATER - 50 ML IVPB SCH (12:30)
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
--- NOTE | 2019-01-04 13:34 | PN ---
Progress Note (short form) - Note Progress Note: ID consult dictated imp/reccd several month history of GERD symptoms on PPI- plan was EGD- hasn't had it yet developed abdominal pain last night around 6, became severe and radiated to her back at 315 am, came to ed nausea no vomiting no diarrhea no dysuria no fevers or chills PE notable for midepigastric pain labs notable for lipase 3000 with normal WBC and normal lfts ultrasound suspicious for cholycysitis ?gallstone pancreatitis imaging per GI/surgery can continue zosyn for now f/u cultures Problem List - Problems (1) Cholecystitis Code(s): K81.9 - CHOLECYSTITIS, UNSPECIFIED (2) Gallstone pancreatitis Code(s): K85.10 - BILIARY ACUTE PANCREATITIS WITHOUT NECROSIS OR INFECTION
--- NOTE | 2019-01-04 14:07 | PN ---
Teaching Attending Note Name of Resident: Harish Crandall ATTENDING PHYSICIAN STATEMENT I saw and evaluated the patient. I reviewed the resident's note and discussed the case with the resident. I agree with the resident's findings and plan as documented. SUBJECTIVE: Ongoing E sided abdominal pain, nausea. No vomiting. No diarrhea/ melena/hematochezia. No fever/chills. OBJECTIVE: Afebrile, Hemodynamically Stable. Last Vital Signs Temp Pulse Resp BP Pulse Ox 97.8 F 68 18 118/74 99 01/04/19 10:41 01/04/19 10:41 01/04/19 10:41 01/04/19 10:41 01/04/19 10:41 HEENT - Atrauamtic, Normocephalic. Heart - S1, S2, RRR Lungs - clear to auscultation. Abdomen - Soft, tender RUQ on deep palpation. Bowel Sounds normal. Extremities - No edema. No calf tenderness. Laboratory Results - last 24 hr 01/04/19 01/04/19 01/04/19 04:45 04:45 04:45 WBC 7.6 RBC 4.48 Hgb 12.4 Hct 36.8 MCV 82.1 MCH 27.6 MCHC 33.7 RDW 15.4 D Plt Count 270 MPV 8.4 Absolute Neuts (auto) 5.3 Neutrophils % 69.8 Lymphocytes % 18.1 D Monocytes % 7.8 Eosinophils % 3.6 Basophils % 0.7 Nucleated RBC % 0 PT with INR INR PTT (Actin FS) Sodium 138 Potassium 4.5 Chloride 105 Carbon Dioxide 29 Anion Gap 4 L BUN 17 Creatinine 0.7 Creat Clearance w eGFR > 60 Random Glucose 98 Calcium 8.5 Phosphorus 3.2 Magnesium 2.1 Total Bilirubin 0.3 AST 16 ALT 29 Alkaline Phosphatase 84 Troponin I Total Protein 7.6 Albumin 3.9 Triglycerides Lipase 3000 H 01/04/19 01/04/19 01/04/19 04:45 05:50 10:45 WBC RBC Hgb Hct MCV MCH MCHC RDW Plt Count MPV Absolute Neuts (auto) Neutrophils % Lymphocytes % Monocytes % Eosinophils % Basophils % Nucleated RBC % PT with INR 12.90 INR 1.09 PTT (Actin FS) 34.4 Sodium Potassium Chloride Carbon Dioxide Anion Gap BUN Creatinine Creat Clearance w eGFR Random Glucose Calcium Phosphorus Magnesium Total Bilirubin AST ALT Alkaline Phosphatase Troponin I < 0.02 Total Protein Albumin Triglycerides 99 Lipase 01/04/19 10:45 WBC RBC Hgb Hct MCV MCH MCHC RDW Plt Count MPV Absolute Neuts (auto) Neutrophils % Lymphocytes % Monocytes % Eosinophils % Basophils % Nucleated RBC % PT with INR INR PTT (Actin FS) Sodium Potassium Chloride Carbon Dioxide Anion Gap BUN Creatinine Creat Clearance w eGFR Random Glucose Calcium Phosphorus Magnesium Total Bilirubin AST ALT Alkaline Phosphatase Troponin I < 0.02 Total Protein Albumin Triglycerides 94 Lipase Current Medications Generic Name Dose Route Start Last Admin Trade Name Freq PRN Reason Stop Dose Admin Heparin Sodium (Porcine) 5,000 unit 01/04/19 14:00 Heparin - SQ TID CHINO Lactated Ringer's 1,000 mls @ 175 mls/hr 01/04/19 09:15 01/04/19 10:37 Lactated Ringers Solution IV 175 mls/hr ASDIR CHINO Administration Piperacillin Sod/Tazobactam 50 mls @ 100 mls/hr 01/05/19 18:00 Sod 3.375 gm/ Dextrose IVPB Q8H-IV CHINO Protocol Morphine Sulfate 2 mg 01/04/19 09:08 01/04/19 12:29 Morphine Sulfate IVPUSH 2 mg Q4H PRN Administration PAIN LEVEL 6-10 Ondansetron HCl 4 mg 01/04/19 09:13 Zofran Injection IVPUSH Q6H PRN NAUSEA Pantoprazole Sodium 40 mg 01/04/19 11:15 01/04/19 11:27 Protonix Iv IVPUSH 40 mg DAILY CHINO Administration Home Medications Medication Instructions Recorded Aspirin 81 mg PO DAILY 03/09/18 Atorvastatin Ca [Lipitor] 10 mg PO HS 03/09/18 Naproxen 500 mg PO BID 01/04/19 Pantoprazole Sodium 40 mg PO DAILY 01/04/19 ASSESSMENT AND PLAN: 48 year old female with history of GERD, HLD, history of gallstones, 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 She has a history of GERD and was due to have EGD several weeks ago but was unable to keep her appt. CXR: No acute pathology U/S RUQ: acute calculus cholecystitis. CBD 7mm. 1. Acute Cholecystitis secondary to Cholelithiasis US Abdomen - changes consistent with acute cholecystitis. CBD at 7mm GI consult for eval and possible MRCP Surgery consulted for acute cholecystitis IV Zosyn, NPO, IV hydration, ID consult. Morphine/Zofran prn 2. Acute Pancreatitis, likely sec to Cholelithiasis Lipase 3000 Will hold off further imaging pending GI eval. NPO/LR @ 175 mls/hr GI Consulted. 3. HLD - normally on Lipitor GI Px - Pantoprazole. DVT Px - Heparin SQ.
[2019-01-04] MEDS: HEPARIN NA (PORCINE) 5,000 UNITS/ML 1ML VIAL SQ SCH ×2 (14:50→21:14)
[2019-01-04] MEDS ORDERED: ACETAMINOPHEN 1000 MG/100 ML VIAL (NON FORMULARY) IVPB PRN (16:30)
--- NOTE | 2019-01-04 19:19 | CONS ---
GASTROINTESTINAL CONSULTATION DATE OF CONSULTATION: DATE OF DICTATION: 01/04/2019 HISTORY OF PRESENT ILLNESS: The patient is a 48-year-old with past medical history of AV malformation status post surgery in 1988 with residual left hand weakness, also with a history of hyperlipidemia and reflux who presents to the emergency room with sudden onset of epigastric abdominal pain which began yesterday evening. It was associated with nausea and radiated to the back. She thought it was secondary to her reflux and tried to go to sleep. However, pain woke her from sleep, prompting her to come to the emergency room for further evaluation. She denies any constipation, diarrhea, melena, hematochezia, fevers, chills or hematemesis. She has not had an endoscopic examination in the past. PAST MEDICAL AND SURGICAL HISTORY: As listed in the HPI. She also had a C section. SOCIAL HISTORY: Does not smoke, drink or use drugs. FAMILY HISTORY: Significant for a sister with gallstones, no history of GI or gynecological malignancy. ALLERGIES: No known drug allergies. HOME MEDICATIONS: Include aspirin, Lipitor, Naprosyn, pantoprazole. REVIEW OF SYSTEMS: Negative except for pertinent positives in the HPI. PHYSICAL EXAMINATION: Vital Signs: Temperature 98, pulse 59, blood pressure 128/68, respiratory rate 18, pulse oximetry 99% on room air. General: No acute distress. HEENT: Anicteric, sclerae clear. Cardiovascular: S1, S2. Regular rate and rhythm. Lungs: Bilaterally clear to auscultation. Abdomen: Soft but tender to deep palpation in the epigastrium without any rebound or guarding. Extremities: No edema. LABORATORY: White blood cell count 7.6, hemoglobin 12, hematocrit 36. MCV 82. Platelet count 270. INR 1.0. Sodium 138, potassium 4.5, BUN 17, creatinine 0.7. AST 16, ALT 29. Troponin negative. Lipase 3000. Triglycerides 94. She had ultrasound of the abdomen which revealed acute calculous cholecystitis, common bile duct appears 0.7 cm. IMPRESSION: Epigastric abdominal pain with associated lipase of 3000, suspicious for pancreatitis, most likely gallstone pancreatitis. Ultrasound imaging reveals a distended gallbladder also. RECOMMENDATION: N.p.o., IV fluids, empiric antibiotics with Zosyn. Surgery evaluation. Will order a HIDA scan for completeness and to further evaluate the biliary tree. liver tests daily while hospitalized. DO SANGEETA CHRISTINE/[id number]
--- NOTE | 2019-01-04 19:35 | CONS ---
DATE OF CONSULTATION: 01/04/2019 This is a 48-year-old woman with a past medical history of GERD. She presented to the emergency room yesterday evening after she developed stomach pain. It started between 5 and 6 o'clock in the evening. By 3 a.m. she had severe pain in her midepigastric region that was radiating to her back. She had some nausea but she had no vomiting. She had no fevers or chills, and she came to the emergency room. She reports that she has had some abdominal pain for the last several months, which was felt to be secondary to gastroesophageal reflux and she had been started on a PPI. She had seen a communications clerk at [facility] and was scheduled for endoscopy, which she has not had. She has a history of gallstones that has been an incidental finding in the past. After arriving in the emergency room with these complaints, she had labs drawn that were notable for an elevated lipase, and she had an ultrasound that was notable for cholecystitis. She is now being admitted for further evaluation. Her past medical history is notable for this recent diagnosis of GERD. She has hyperlipidemia. She has a history of an AVM back in 1988. She reports she was transferred from [place] to [place], where she underwent a treatment with a Gamma Knife at that time. Surgical history is notable for this AVM surgery and the section in the past. SOCIAL HISTORY: She is . 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 She does not spend time with the children. She has 2 children of her own. There is no history of any cigarette, alcohol, or substance use. She has a sister, who gets gallstones too. She has no allergies. Her medications include aspirin, atorvastatin, pantoprazole, and naproxen. REVIEW OF SYSTEMS: She has chronic left hand weakness and contracture, which happened due to the AVM, and is unchanged. She denies any fevers or chills. PHYSICAL EXAMINATION: General: She is awake and alert. Vital Signs: Temperature is 97.8. Pulse 68. Blood pressure 118/74. Respiratory rate is 18. She is saturating 99% on room air. HEENT: Normocephalic. Her eyes are anicteric. Neck: Supple. Lungs: Clear to auscultation. Heart: Regular rate and rhythm. Abdomen: Soft. She has midepigastric discomfort to deep palpation. Extremities: Without edema. Her left hand is contracted. Her white count is 7.6, hemoglobin 12.4, platelets 270, INR 1.09. LFTs are normal. Lipase is 3000. Triglycerides are normal. She had an ultrasound done in the emergency room that was suggestive of acute calculus cholecystitis with a slightly prominent CBD. In summary, this is a 48-year-old woman with possible cholecystitis, possible gallstone pancreatitis. Imaging per GI surgery. Would continue Zosyn for now and follow up cultures. No blood cultures have been sent, so will go ahead and order some. Further recommendations to follow. Anh AGUIRRE/[id number]
[2019-01-05 03:51] LABS: URINE APPEARANCE CLEAR; URINE BILIRUBIN NEGATIVE (<2.0 mg/dL); URINE COLOR STRAW; URINE GLUCOSE (UA) NEGATIVE (NEGATIVE); URINE KETONE TRACE (NEGATIVE); URINE LEUK ESTERASE NEGATIVE (NEGATIVE); URINE NITRITE NEGATIVE (NEGATIVE); URINE PROTEIN NEGATIVE (NEGATIVE); URINE UROBILINOGEN NEGATIVE mg/dL (0.2-1.0)
[2019-01-05 04:30] LABS: EPI CELLS RARE /HPF (FEW); URINE BACTERIA RARE /hpf (NONE SEEN); URINE HYALINE CAST 1 /lpf; URINE MUCUS RARE
[2019-01-05] MEDS: LACTATED RINGERS SOLUTION 1,000 ML IV SCH ×2 (04:32→10:47)
[2019-01-05] MEDS: HEPARIN NA (PORCINE) 5,000 UNITS/ML 1ML VIAL SQ SCH ×3 (05:15→21:38)
[2019-01-05 08:18] LABS: BASO % 0.8 % (0-2.0); EOS % 3.7 % (0-4.5); HEMATOCRIT 30.9 % (32.4-45.2); HEMOGLOBIN 10.3 GM/dL (10.7-15.3); LYMPH % 26.2 % (8-40); MCH 27.3 pg (25.7-33.7); MCHC 33.4 g/dl (32.0-36.0); MEAN CELL VOLUME 81.9 fl (80-96); MEAN PLT VOLUME 8.7 fl (7.5-11.1); MONO % 8.3 % (3.8-10.2); PLATELET COUNT 200 K/MM3 (134-434); RBC 3.77 M/mm3 (3.60-5.2); RDW 15.3 % (11.6-15.6); WHITE BLOOD COUNT 4.7 K/mm3 (4.0-10.0)
[2019-01-05 08:52] LABS: ALK PHOS 75 U/L (45-117); ANION GAP 7 MMOL/L (8-16); BILIRUBIN,TOTAL 0.6 mg/dL (0.2-1); BLOOD UREA NITROGEN 9 mg/dL (7-18); CALCIUM 8.6 mg/dL (8.5-10.1); CHLORIDE 107 mmol/L (98-107); CHOLESTEROL 116 mg/dL (50-200); CO2 28 mmol/L (21-32); CREATININE 0.6 mg/dL (0.55-1.3); GLUCOSE,RANDOM 75 mg/dL (74-106); HDL CHOLESTEROL 37 mg/dL (40-60); LIPASE 436 U/L (73-393); SGOT/AST 19 U/L (15-37); SGPT/ALT 25 U/L (13-61); SODIUM 142 mmol/L (136-145); TOT PROT 5.8 g/dl (6.4-8.2); TRIGLYCERIDES 73 mg/dL (0-150)
[2019-01-05] MEDS: PANTOPRAZOLE SODIUM 40 MG VIAL IVPUSH SCH ×2 (10:37→10:42)
--- NOTE | 2019-01-05 12:11 | PN ---
Teaching Attending Note Name of Resident: Girish Maguire ATTENDING PHYSICIAN STATEMENT I saw and evaluated the patient. I reviewed the resident's note and discussed the case with the resident. I agree with the resident's findings and plan as documented. SUBJECTIVE:states pain has resolved. no previous episodes however been told she has gallstones in the past but that surgery was not necessary at that time. 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 Acute Cholecystitis secondary to Cholelithiasis- dilated CBD 7mm. on zosyn. HIDA ordered per GI. will need cholecystectomy on this hospitalization. cont Zosyn. awaiting surgical consult. hold asa and NSAIDS for pending surgery. ID and GI on board. 2. Acute Pancreatitis, likely sec to Cholelithiasis. clinically improved. will start clear liquids if tolerated. can titrate down IVF and stop if tolerating diet. will need cholecystectomy on this hospital course. 3. Dyslipidemia - statin 4. DVT ppx- hep sq
--- NOTE | 2019-01-05 12:31 | PN ---
Physical Exam: SUBJECTIVE: Patient seen and examined at bedside. no acute events overnight. pt abd pain much improved. pt says she is hungry and requesting food. denies fever , chills, cp, sob, n/v/d. Notes some blood in stool when wiping but endorses hx of hemorrhoids. no previous episodes of cholecystitis/pancreatisis however been told she has gallstones in the past but that surgery was not necessary at that time OBJECTIVE: Vital Signs Period Temp Pulse Resp BP Sys/Bonilla Pulse Ox Last 24 Hr 98.1 F-98.8 F 59-80 18-20 125-132/56-88 99-99 GENERAL: AOX3, NAD HEAD: NCAT EYES: extraocular movements intact, sclera anicteric, conjunctiva clear. No lid lag. EARS, NOSE, THROAT: nares patent, oropharynx clear without exudates NECK: Normal range of motion, supple LUNGS: CTAB HEART: RRR, normal S1 and S2 ABDOMEN: Soft, normoactive BS. NTND. Torres's negative. UPPER EXTREMITIES: L hand contracted LOWER EXTREMITIES: warm, well-perfused. No peripheral edema. NEUROLOGICAL: Cranial nerves II-XII grossly intact. Normal speech. Gait not observed PSYCHIATRIC: Cooperative. Good eye contact. Appropriate mood and affect. SKIN: Warm, dry Laboratory Results - last 24 hr 01/04/19 01/05/19 01/05/19 10:45 03:40 07:15 WBC 4.7 RBC 3.77 Hgb 10.3 L Hct 30.9 L D MCV 81.9 MCH 27.3 MCHC 33.4 RDW 15.3 Plt Count 200 D MPV 8.7 Absolute Neuts (auto) 2.9 Neutrophils % 61.0 Lymphocytes % 26.2 D Monocytes % 8.3 Eosinophils % 3.7 Basophils % 0.8 Nucleated RBC % 0 Sodium Potassium Chloride Carbon Dioxide Anion Gap BUN Creatinine Creat Clearance w eGFR Random Glucose Calcium Total Bilirubin AST ALT Alkaline Phosphatase Total Protein Albumin Triglycerides Cholesterol Total LDL Cholesterol HDL Cholesterol Lipase Urine Color Straw Urine Appearance Clear Urine pH 6.0 Ur Specific [place] 1.008 L Urine Protein Negative Urine Glucose (UA) Negative Urine Ketones Trace H Urine Blood 1+ H Urine Nitrite Negative Urine Bilirubin Negative Urine Urobilinogen Negative Ur Leukocyte Esterase Negative Urine WBC (Auto) 2 Urine RBC (Auto) 5 Ur Epithelial Cells Rare Urine Bacteria Rare Hyaline Casts 1 Urine Mucus Rare Blood Type O NEGATIVE Antibody Screen Negative 01/05/19 07:15 WBC RBC Hgb Hct MCV MCH MCHC RDW Plt Count MPV Absolute Neuts (auto) Neutrophils % Lymphocytes % Monocytes % Eosinophils % Basophils % Nucleated RBC % Sodium 142 Potassium 4.0 Chloride 107 Carbon Dioxide 28 Anion Gap 7 L BUN 9 Creatinine 0.6 Creat Clearance w eGFR > 60 Random Glucose 75 Calcium 8.6 Total Bilirubin 0.6 AST 19 ALT 25 Alkaline Phosphatase 75 Total Protein 5.8 L Albumin 3.0 L Triglycerides 73 Cholesterol 116 Total LDL Cholesterol 63 HDL Cholesterol 37 L Lipase 436 H Urine Color Urine Appearance Urine pH Ur Specific [place] Urine Protein Urine Glucose (UA) Urine Ketones Urine Blood Urine Nitrite Urine Bilirubin Urine Urobilinogen Ur Leukocyte Esterase Urine WBC (Auto) Urine RBC (Auto) Ur Epithelial Cells Urine Bacteria Hyaline Casts Urine Mucus Blood Type Antibody Screen Active Medications Generic Name Dose Route Start Last Admin Trade Name Freq PRN Reason Stop Dose Admin Acetaminophen 1,000 mg 01/04/19 16:30 Ofirmev Injection - IVPB Q6H PRN PAIN LEVEL 1-5 Heparin Sodium (Porcine) 5,000 unit 01/04/19 14:00 01/05/19 05:15 Heparin - SQ 5,000 unit TID CHINO Administration Lactated Ringer's 1,000 mls @ 175 mls/hr 01/04/19 09:15 01/05/19 10:47 Lactated Ringers Solution IV 175 mls/hr ASDIR CHINO Administration Piperacillin Sod/Tazobactam 50 mls @ 100 mls/hr 01/05/19 18:00 Sod 3.375 gm/ Dextrose IVPB Q8H-IV CHINO Protocol Morphine Sulfate 2 mg 01/04/19 09:08 01/04/19 20:30 Morphine Sulfate IVPUSH 2 mg Q4H PRN Administration PAIN LEVEL 6-10 Ondansetron HCl 4 mg 01/04/19 09:13 01/04/19 14:50 Zofran Injection IVPUSH 4 mg Q6H PRN Administration NAUSEA Pantoprazole Sodium 40 mg 01/04/19 11:15 01/05/19 10:42 Protonix Iv IVPUSH 40 mg DAILY CHINO Administration ASSESSMENT/PLAN: 48 y/o F w/PMH of GERD, HLD, hemorrhoids, history of gallstones, 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 Found to have acute calculus cholecystitis and pancreatitis. Acute Cholecystitis and Pancreatitis 2/2 Cholelithiasis - clinically improved. will start clear liquids if tolerated. can titrate down IVF and stop if tolerating diet. -CXR: No acute pathology, Lipase 3000, U/S RUQ: acute calculus cholecystitis. dilated CBD 7mm. -Lipase levels decrease to 400s -c/w Zosyn - ID consult -Surgery consult -GI consult -LR @ 175 ml/hr -morphine 2mg q4h IV PRN for pain -zofran 4mg q6h IV PRN for nausea -HIDA ordered per GI -will need cholecystectomy on this hospitalization -awaiting surgical consult. hold asa and NSAIDS for pending surgery GERD -Protonix 40 mg switch IV to PO qd HLD -lipitor 10 mg po qhs -f/u Lipid panel nl -Trig levels nl Hemorrhoids - last colonoscopy last year, per pt normal -Notes some blood in stool when wiping -monitor H/H, Hgb 10.3 (baseline), all cell lines decreased this AM likely was hemoconcentrated -encouraged to f/u oupt ppx -Heparin 5000 units sq q8h -Protonix 40 mg switch IV to PO qd FEN -LR @ 175 ml/hr, can titrate down IVF and stop if tolerating diet. -Monitor electrolytes -advance to clears Dispo: Admit to m/s Visit type - Emergency Visit Emergency Visit: Yes ED Registration Date: 01/04/19 Care time: The patient presented to the Emergency Department on the above date and was hospitalized for further evaluation of their emergent condition. - New Patient This patient is new to me today: Yes Date on this admission: 01/05/19 - Critical Care Critical Care patient: No
--- NOTE | 2019-01-05 13:20 | CONSULT ---
Consult Consult Specialty:: Surgery - History of Present Illness Chief Complaint: abdominal pain History of Present Illness: 48 y.o. female with known history of asymptomatic gallstones admitted for epigastric pain radiating to the back. US showed cholelithiasis and 0.7 cm CBD with elevated serum lipase. Initial pain score was 10/10. Pain had completely resolved today and patient is tolerating liquid diet. - History Source History Provided By: Patient - Past Medical History Hepatobiliary: Yes: Cholelithiasis ...LMP: 03/04/17 Rheumatology: Yes: Rheumatoid Arthritis - Alcohol/Substance Use Hx Alcohol Use: No - Smoking History Smoking history: Never smoked Have you smoked in the past 12 months: No Home Medications - Allergies Allergies/Adverse Reactions: Allergies Allergy/AdvReac Type Severity Reaction Status Date / Time No Known Allergies Allergy Verified 01/04/19 04:15 - Home Medications Home Medications: Ambulatory Orders Atorvastatin Ca [Lipitor] 10 mg PO HS 03/09/18 RX: Aspirin 81 mg PO DAILY 03/09/18 RX: Naproxen 500 mg PO BID 01/04/19 RX: Pantoprazole Sodium 40 mg PO DAILY 01/04/19 Review of Systems - Review of Systems Constitutional: reports: No Symptoms Neck: reports: No Symptoms Cardiovascular: reports: No Symptoms Gastrointestinal: reports: Other (heartburn) Genitourinary: reports: No Symptoms Pain Intensity: 10 Physical Exam Vital Signs: Vital Signs Temperature 98.1 F 01/05/19 09:15 Pulse Rate 80 01/05/19 09:15 Respiratory Rate 20 01/05/19 09:15 Blood Pressure 132/56 L 01/05/19 09:15 O2 Sat by Pulse Oximetry (%) 99 01/05/19 09:00 Constitutional: Yes: Well Nourished, No Distress HENT: Yes: Normocephalic Neck: Yes: Supple Cardiovascular: Yes: Regular Rate and Rhythm Respiratory: Yes: CTA Bilaterally Gastrointestinal: Yes: Normal Bowel Sounds, Soft, Other (No epigastric tenderness at the time of examination) ...Rectal Exam: Yes: Deferred Edema: No Psychiatric: Yes: Alert, Oriented Labs: CBC, BMP 01/05/19 07:15 01/05/19 07:15 Imaging - Results Ultrasound: Report Reviewed, Image Reviewed Other: Other (HIDA scan showed no biliary obstruction but delayed GB uptake) Problem List - Problems (1) Pancreatitis Assessment/Plan: Resolving mild gallstone pancreatitis For laparoscopic cholecystectomy in am Risks, benefits, alternatives, and potential for retained CBD stone d/w patient. Code(s): K85.90 - ACUTE PANCREATITIS WITHOUT NECROSIS OR INFECTION, UNSP Qualifiers: Chronicity: acute Pancreatitis type: unspecified pancreatitis type Acute pancreatitis complication: unspecified Qualified Code(s): K85.90 - Acute pancreatitis without necrosis or infection, unspecified
[2019-01-05] MEDS ORDERED: DEXTROSE 5%-WATER - 50 ML IVPB ONE (17:28)
[2019-01-05] MEDS ORDERED: PIPERACILLIN/TAZOBACTAM 3.375 GM VIAL IVPB ONE (17:28)
[2019-01-05] MEDS: PIPERACILLIN/TAZOB 3.375 GM 3.375 GM in DEXTROSE 5%-WATER - 50 ML IVPB SCH (17:29)
[2019-01-05] MEDS: ATORVASTATIN CA 10 MG TABLET (FP) PO SCH (21:38)
[2019-01-06] MEDS ORDERED: PIPERACILLIN/TAZOBACTAM 3.375 GM VIAL IVPB ONE ×3 (02:11→16:55)
[2019-01-06] MEDS ORDERED: DEXTROSE 5%-WATER - 50 ML IVPB ONE ×3 (02:11→16:56)
[2019-01-06] MEDS: PIPERACILLIN/TAZOB 3.375 GM 3.375 GM in DEXTROSE 5%-WATER - 50 ML IVPB SCH ×3 (02:26→17:03)
--- NOTE | 2019-01-06 07:26 | PN ---
Physical Exam: SUBJECTIVE: Patient seen and examined at bedside. no acute events overnight. NPO for surgery today. pt abd pain much improved. tolerated clears yesterday. denies fever, chills, cp, sob, n/v/d. OBJECTIVE: Vital Signs Period Temp Pulse Resp BP Sys/Bonilla Pulse Ox Last 24 Hr 98.1 F-98.6 F 77-97 18-20 125-139/56-76 96-99 GENERAL: AOX3, NAD HEAD: NCAT EYES: extraocular movements intact, sclera anicteric, conjunctiva clear. No lid lag. EARS, NOSE, THROAT: nares patent, oropharynx clear without exudates NECK: Normal range of motion, supple LUNGS: CTAB HEART: RRR, normal S1 and S2 ABDOMEN: Soft, normoactive BS. NTND. Torres's negative. UPPER EXTREMITIES: L hand contracted LOWER EXTREMITIES: warm, well-perfused. No peripheral edema. NEUROLOGICAL: Cranial nerves II-XII grossly intact. Normal speech. Gait not observed PSYCHIATRIC: Cooperative. Good eye contact. Appropriate mood and affect. SKIN: Warm, dry Laboratory Results - last 24 hr 01/05/19 01/05/19 07:15 07:15 WBC 4.7 RBC 3.77 Hgb 10.3 L Hct 30.9 L D MCV 81.9 MCH 27.3 MCHC 33.4 RDW 15.3 Plt Count 200 D MPV 8.7 Absolute Neuts (auto) 2.9 Neutrophils % 61.0 Lymphocytes % 26.2 D Monocytes % 8.3 Eosinophils % 3.7 Basophils % 0.8 Nucleated RBC % 0 Sodium 142 Potassium 4.0 Chloride 107 Carbon Dioxide 28 Anion Gap 7 L BUN 9 Creatinine 0.6 Creat Clearance w eGFR > 60 Random Glucose 75 Calcium 8.6 Total Bilirubin 0.6 AST 19 ALT 25 Alkaline Phosphatase 75 Total Protein 5.8 L Albumin 3.0 L Triglycerides 73 Cholesterol 116 Total LDL Cholesterol 63 HDL Cholesterol 37 L Lipase 436 H Active Medications Generic Name Dose Route Start Last Admin Trade Name Freq PRN Reason Stop Dose Admin Acetaminophen 1,000 mg 01/04/19 16:30 Ofirmev Injection - IVPB Q6H PRN PAIN LEVEL 1-5 Atorvastatin Calcium 10 mg 01/05/19 22:00 01/05/19 21:38 Lipitor - PO 10 mg HS CHINO Administration Heparin Sodium (Porcine) 5,000 unit 01/04/19 14:00 01/05/19 21:38 Heparin - SQ Not Given TID [facility] Lactated Ringer's 1,000 mls @ 175 mls/hr 01/04/19 09:15 01/05/19 10:47 Lactated Ringers Solution IV 175 mls/hr ASDIR CHINO Administration Piperacillin Sod/Tazobactam 50 mls @ 100 mls/hr 01/05/19 18:00 01/06/19 02:26 Sod 3.375 gm/ Dextrose IVPB 100 mls/hr Q8H-IV CHINO Administration Protocol Morphine Sulfate 2 mg 01/04/19 09:08 01/04/19 20:30 Morphine Sulfate IVPUSH 2 mg Q4H PRN Administration PAIN LEVEL 6-10 Ondansetron HCl 4 mg 01/04/19 09:13 01/04/19 14:50 Zofran Injection IVPUSH 4 mg Q6H PRN Administration NAUSEA Pantoprazole Sodium 40 mg 01/06/19 10:00 Protonix - PO DAILY [facility] 7099-0553 NM/HIDA SCAN HIDA SCAN CLINICAL INDICATION: 48-year-old female with gallstones and abdominal pain with ultrasound findings suggestive of cholecystitis TECHNIQUE: Following the intravenous administration of 6.7 mCi of Tc 99M of Choletec, dynamic images of the abdomen in the anterior projection were obtained through 120minutes. COMPARISON: Ultrasound of the abdomen dated January 04, 2019. FINDINGS: There is normal homogeneous perfusion of the liver with no evidence of focal lesion. Extraction of tracer from the blood pool by the liver parenchyma is normal. Tracer appears promptly and within the biliary tree. The gallbladder begins to fill by 90minutes post injection of tracer and only filled minimally. Tracer in the small bowel is first seen at 15minutes. The proximal CBD/CHD appears to be dilated. IMPRESSION: Delayed filling of the gallbladder with only partial filling of the base. The majority of the gallbladder doesn't appear to be filling with tracer after 120 minutes of imaging. The portion that is filling corresponds to a locule at the base of the gallbladder seen on ultrasound. Whether this represents a dilated cystic duct with occlusion of the neck or this represents partial filling of the gallbladder cannot be discerned. Correlation with patient 's symptoms, white blood cell count and LFTs is needed to assess for acute versus chronic cholecystitis. Acute cholecystitis however with partial-not complete obstruction of the cystic duct is favored. Dilated proximal CHD/CBD with no delayed biliary enteric transit of tracer. This is likely on the basis of normal variant dilatation of the CBD/CHD such as seen with choledochal cystfusiform dilatation. Correlation with bilirubin level is needed. If indicated MRCP may be obtained for further evaluation. 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 Found to have acute calculus cholecystitis and pancreatitis. Acute Cholecystitis and Pancreatitis 2/2 Cholelithiasis - clinically improved. -CXR: No acute pathology, Lipase 3000, U/S RUQ: acute calculus cholecystitis. dilated CBD 7mm. -Lipase levels decreased to 400s -c/w Zosyn - ID consult -Surgery consult -GI consult -LR @ 175 ml/hr -morphine 2mg q4h IV PRN for pain -zofran 4mg q6h IV PRN for nausea -HIDA reviewed see above -NPO for lap dario today. -hold asa and NSAIDS for surgery -Incentive spirometer for post op GERD -c/w Protonix 40 mg PO qd HLD -lipitor 10 mg po qhs -Lipid panel nl -Trig levels nl Hemorrhoids - last colonoscopy last year, per pt normal -Notes some blood in stool when wiping -H/H stable 11.6 (baseline), -encouraged to f/u oupt w/ PCP/GI ppx -held Heparin 5000 units sq q8h for surgery -c/w Protonix 40 mg PO qd FEN -LR @ 175 ml/hr -Monitor electrolytes -NPO for lap dario today. Dispo: Admit to m/s NPO for lap dario today. Visit type - Emergency Visit Emergency Visit: Yes ED Registration Date: 01/04/19 Care time: The patient presented to the Emergency Department on the above date and was hospitalized for further evaluation of their emergent condition. - New Patient This patient is new to me today: Yes Date on this admission: 01/06/19 - Critical Care Critical Care patient: No - Discharge Referral Referred to [facility] Med P.C.: No
[2019-01-06 08:08] LABS: BASO % 1.2 % (0-2.0); EOS % 3.9 % (0-4.5); HEMATOCRIT 34.2 % (32.4-45.2); HEMOGLOBIN 11.6 GM/dL (10.7-15.3); MCH 27.6 pg (25.7-33.7); MEAN CELL VOLUME 81.3 fl (80-96); MEAN PLT VOLUME 8.1 fl (7.5-11.1); MONO % 9.3 % (3.8-10.2); NEUT % 61.6 % (42.8-82.8); PLATELET COUNT 246 K/MM3 (134-434); RBC 4.21 M/mm3 (3.60-5.2); RDW 15.3 % (11.6-15.6); WHITE BLOOD COUNT 3.9 K/mm3 (4.0-10.0)
[2019-01-06 08:20] LABS: INR 1.11 (0.83-1.09); PROTHROMBIN TIME (PATIENT) 13.1 SEC (9.7-13.0)
[2019-01-06 08:22] LABS: ACTIVATED PTT 35.2 SECONDS (25.2-36.5)
[2019-01-06 08:52] LABS: ALBUMIN 3.5 g/dl (3.4-5.0); ALK PHOS 86 U/L (45-117); ANION GAP 7 MMOL/L (8-16); BILIRUBIN,TOTAL 0.7 mg/dL (0.2-1); BLOOD UREA NITROGEN 8 mg/dL (7-18); CALCIUM 8.9 mg/dL (8.5-10.1); CHLORIDE 104 mmol/L (98-107); CO2 30 mmol/L (21-32); CREATININE 0.8 mg/dL (0.55-1.3); GLUCOSE,RANDOM 86 mg/dL (74-106); MAGNESIUM 2.2 mg/dL (1.8-2.4); PHOSPHOROUS 3.1 mg/dL (2.5-4.9); SGOT/AST 25 U/L (15-37); SGPT/ALT 32 U/L (13-61); SODIUM 140 mmol/L (136-145); TOT PROT 5.9 g/dl (6.4-8.2)
[2019-01-06] MEDS: LACTATED RINGERS SOLUTION 1,000 ML IV SCH (09:01)
[2019-01-06] MEDS: PANTOPRAZOLE 40 MG TABLET (FP) PO SCH (09:54)
[2019-01-06] MEDS ORDERED: BUPIVACAINE HCL/PF 0.5% (5MG/ML) 10 ML VIAL ONE (12:22)
--- NOTE | 2019-01-06 12:48 | PN ---
Teaching Attending Note Name of Resident: Girish Maguire ATTENDING PHYSICIAN STATEMENT I saw and evaluated the patient. I reviewed the resident's note and discussed the case with the resident. I agree with the resident's findings and plan as documented. SUBJECTIVE:asymptomatic. tolerating liquids yesterday. denies CP, SOB, fever, chills, N/V/C?D OBJECTIVE: Last Vital Signs Temp Pulse Resp BP Pulse Ox 98.5 F 78 17 138/82 96 01/06/19 10:01/06/19 10:01/06/19 10:01/06/19 10:01/05/19 21:00 General NAD ABdomen soft NT/ND ASSESSMENT AND PLAN: 48 year old female with history of GERD, HLD, history of gallstones, Brain AVM s /p clipping 1988 with residual Left hand contracture/weakness, presents with epigastric/RUQ abdominal pain, and found to have acute pancreatitis and acute cholecystitis 1. Acute Cholecystitis secondary to Cholelithiasis- clinically improved. NPO for lap cholecystectomy today. cont Zosyn and can d/c post-operatively. further recommendations per surgery. hold asa and NSAIDS for pending surgery. ID and GI on board. 2. Acute Pancreatitis, likely sec to Cholelithiasis. clinically improved. 3. Dyslipidemia - statin 4. DVT ppx- hep sq 5. anticipate d/c in next 24H
[2019-01-06] MEDS ORDERED: MIDAZOLAM HCL 2 MG/2 ML SINGLE DOSE VIAL ONE ×2 (13:06)
[2019-01-06] MEDS ORDERED: fentaNYL CITRATE 250 MCG/5 ML VIAL ONE (13:07)
[2019-01-06] MEDS ORDERED: ROCURONIUM BROMIDE 50 MG/5 ML VIAL ONE (13:08)
[2019-01-06] MEDS ORDERED: PROPOFOL 20 ML ONE ×2 (13:09)
[2019-01-06] MEDS ORDERED: BUPIVACAINE HCL/PF (5 MG/ML) 30 ML VIAL IJ ONE (13:41)
--- NOTE | 2019-01-06 13:52 | EKG ---
Test Reason : Blood Pressure : / mmHG Vent. Rate : 073 BPM Atrial Rate : 073 BPM P-R Int : 166 ms QRS Dur : 080 ms QT Int : 390 ms P-R-T Axes : 061 030 032 degrees QTc Int : 429 ms NORMAL SINUS RHYTHM NORMAL ECG WHEN COMPARED WITH ECG OF 04-JAN-2019 03:10, QRS DURATION HAS DECREASED QRS VOLTAGE HAS DECREASED Confirmed by MD Davis Daniel ([id number]) on 01/06/2019 1:52:16 PM Referred By: Confirmed By:Daniel Davis MD
[2019-01-06] MEDS ORDERED: NEOSTIGMINE METHYLSULFATE 0.5 MG/ML - 10 ML MDV ONE (14:32)
[2019-01-06] MEDS ORDERED: KETOROLAC TROMETHAMINE 30 MG/1 ML VIAL ONE (14:33)
[2019-01-06] MEDS ORDERED: LIDOCAINE HCL/PF 2% SDV 5ML VIAL ONE (14:33)
[2019-01-06] MEDS ORDERED: DEXAMETHASONE SOD PHOSPHATE 4 MG/1 ML VIAL ONE (14:33)
[2019-01-06] MEDS ORDERED: LACTATED RINGERS SOLUTION 1,000 ML IV SCH (15:15)
[2019-01-06] MEDS ORDERED: ACETAMINOPHEN INJECTION 100 ML IVPB ONE (15:27)
[2019-01-06] MEDS ORDERED: oxyCODONE HCL 5 MG TABLET PO PRN (15:36)
--- NOTE | 2019-01-06 15:47 | OP ---
Operative Note - Note: Operative Date: 01/06/19 Pre-Operative Diagnosis: Gallstone pancreatitis Operation: Laparoscopic cholecystectomy Findings: as dictated Post-Operative Diagnosis: Same as Pre-op Surgeon: Rafael Calderón Drill Press Operator Numerical Control: Kymberly Ferris Anesthesiologist/DISTRICT LEADER: Angelita Penaloza MD Anesthesia: General, Local (20ml .25% Marcaine) Specimens Removed: gallbladder, bile Estimated Blood Loss (mls): 10 (ml) Fluid Volume Replaced (mls): 1,200 (ml LR) Operative Report Dictated: Yes
--- NOTE | 2019-01-06 15:57 | SURG ---
Surgery [employer] Art[employer] Officer Note [employer] Defense Artillery Officer: Kymberly Ferris PA-C (Suzy) Date of Service: 01/06/19 Diagnosis: Gallstone pancreatitis Procedure: Laparoscopic cholecystectomy I was present for the entirety of the operative procedure. For further detail, please refer to operative report. Visit type - Case Type Case Type: Scheduled - Emergency Emergency Visit: No - New patient This patient is new to me today: Yes Date on this admission: 01/06/19 - Critical Care Critical Care patient: No
[2019-01-06] MEDS: oxyCODONE HCL 5 MG TABLET PO PRN ×2 (17:02→21:04)
--- NOTE | 2019-01-06 17:04 | OP ---
DATE OF OPERATION: 01/06/2019 PROCEDURE: Laparoscopic cholecystectomy. PREOPERATIVE DIAGNOSIS: Gallstone pancreatitis. POSTOPERATIVE DIAGNOSIS: Gallstone pancreatitis. SURGEON: Rafael Calderón M.D. TIMBER INCISOR OPERATOR: Nargis Reid ANESTHESIA: General endotracheal anesthesia. FINDINGS: This is a 48-year-old female who presents with 5-day history of epigastric pain radiating to the back, associated with nausea and vomiting. This prompted patient to seek medical attention in the emergency department where an ultrasound showed distended gallbladder with abnormal sized common bile duct, about 0.7 cm in diameter, and elevated lipase levels. This patient was admitted for treatment of gallstone pancreatitis, and the ultrasound also showed cholelithiasis. Patient refused MRCP, so HIDA scan was done which showed delayed visualization of her gallbladder; however, there was prompt drainage of the radioisotope into the small bowel. With the normalization of LFTs and the lipase levels and disappearance of abdominal pain, patient was advised cholecystectomy. On HIDA scan, there was also question of whether the patient has choledochal cyst or not. Consent was obtained, after discussion of risks, benefits, and alternatives to the procedure. DESCRIPTION OF PROCEDURE: Patient was brought to the operating room and placed in supine position. General endotracheal anesthesia was administered. The abdomen was prepped and draped in the usual sterile fashion. Using 0.5% Marcaine, local anesthesia was administered to the proposed incision site. The peritoneal cavity was entered using the Optiview techniqu via a 5-mm umbilical incision using a 5-mm, 30-degree scope inserted in a 5-mm umbilical port. Pneumoperitoneum was established. Patient was then placed in the reverse Trendelenburg, left side down position. An 11-mm port was inserted into the subxiphoid region, and two 5-mm ports were inserted in the right subcostal region at the midclavicular and anterior axillary lines. The gallbladder was noted to be distended with mildly thickened crum. This was decompressed using the laparoscopic needle and about 20 mL of dark green bile was aspirated. The gallbladder was grasped at the fundus and retracted superiorly. Upon visualizing the infundibulum, a cystic structure which was about 1 cm in diameter was noted at the cystic duct, hepatic duct junction. The cystic duct was also noted to be abnormally dilated. The cystic artery was isolated and clipped at 3 points, followed by transection, leaving 2 clips at the cystic artery stump. The dome-down approach done by dissecting the proximal gallbladder wall from the liver bed on both sides of the gallbladder to create the critical view of safety. Using the hook dissector combined with the [place] dissector, careful dissection was done until the junction of gallbladder and cystic duct was clearly visualized, and also the common hepatic duct was also visualized. The 11-mm port was changed to a 12- mm port to accommodate the Endo CHRISTINA stapling device. The cystic duct was transected at the gallbladder/cystic duct junction using the Endo CHRISTINA 45, 2.5-mm stapling device. Afterwards the gallbladder was resected from its bed in antegrade fashion using the hook dissector connected to monopolar cautery. The abnormally dilated cystic duct was observed, and the cystic structure which was suspicious for choledochal cyst was noted to have decompressed partially. Pictures were taken of the cystic structures. It was decided upon to leave it intact with future plans to refer the patient to tertiary care center to rule out choledochal cyst with GI and hepatobiliary team. The gallbladder was then placed in endobag and extracted via the subxiphoid incision. Bleeders from the liver bed were controlled by application of Surgicel, which was eventually removed after hemostasis was completely achieved. The Amos pouch as well as the right hepatic gutter was irrigated with sterile normal saline until the return was clear. The pneumoperitoneum was evacuated, the ports were removed. The wounds were closed with subcuticular Biosyn 4-0 sutures, reinforced with Dermabond. Patient was successfully extubated and transferred to the post anesthesia care unit in satisfactory condition. Estimated blood loss was about 20 mL. Wound class clean, contaminated. The patient was already on intravenous antibiotics upon admission. Anh [id number] MTDD
[2019-01-06] MEDS: ATORVASTATIN CA 10 MG TABLET (FP) PO SCH (21:03)
[2019-01-06] MEDS: HEPARIN NA (PORCINE) 5,000 UNITS/ML 1ML VIAL SQ SCH (21:04)
[2019-01-07] MEDS ORDERED: PIPERACILLIN/TAZOBACTAM 3.375 GM VIAL IVPB ONE (00:17)
[2019-01-07] MEDS ORDERED: DEXTROSE 5%-WATER - 50 ML IVPB ONE (00:18)
[2019-01-07] MEDS: PIPERACILLIN/TAZOB 3.375 GM 3.375 GM in DEXTROSE 5%-WATER - 50 ML IVPB SCH (01:22)
[2019-01-07] MEDS: oxyCODONE HCL 5 MG TABLET PO PRN ×3 (01:41→13:19)
[2019-01-07] MEDS: HEPARIN NA (PORCINE) 5,000 UNITS/ML 1ML VIAL SQ SCH ×3 (05:13→21:15)
[2019-01-07 06:51] LABS: BASO % 0.5 % (0-2.0); HEMATOCRIT 32.6 % (32.4-45.2); HEMOGLOBIN 11.1 GM/dL (10.7-15.3); LYMPH % 11.6 % (8-40); MCH 27.7 pg (25.7-33.7); MEAN CELL VOLUME 81.3 fl (80-96); MEAN PLT VOLUME 8.3 fl (7.5-11.1); MONO % 4.7 % (3.8-10.2); NEUT % 83.2 % (42.8-82.8); PLATELET COUNT 223 K/MM3 (134-434); RBC 4.01 M/mm3 (3.60-5.2); RDW 15.6 % (11.6-15.6); WHITE BLOOD COUNT 6.9 K/mm3 (4.0-10.0)
[2019-01-07 07:33] LABS: ALBUMIN 3.1 g/dl (3.4-5.0); ALK PHOS 72 U/L (45-117); ANION GAP 6 MMOL/L (8-16); BILIRUBIN,TOTAL 0.4 mg/dL (0.2-1); BLOOD UREA NITROGEN 7 mg/dL (7-18); CALCIUM 8.4 mg/dL (8.5-10.1); CHLORIDE 104 mmol/L (98-107); CO2 28 mmol/L (21-32); CREATININE 0.7 mg/dL (0.55-1.3); GLUCOSE,RANDOM 128 mg/dL (74-106); POTASSIUM 4.6 mmol/L (3.5-5.1); SGOT/AST 49 U/L (15-37); SGPT/ALT 49 U/L (13-61); SODIUM 139 mmol/L (136-145); TOT PROT 5.8 g/dl (6.4-8.2)
[2019-01-07] MEDS ORDERED: ACETAMINOPHEN 1000 MG/100 ML VIAL (NON FORMULARY) IVPB PRN (08:07)
[2019-01-07] MEDS: PANTOPRAZOLE 40 MG TABLET (FP) PO SCH (09:30)
--- NOTE | 2019-01-07 10:43 | PN ---
Progress Note (short form) - Note Progress Note: 48yo F s/p lap dario POD 1. Pt seen and examined at bedside. Pt complaining of moderate RUQ pain. Pt denies n/v, fever, chills. Pt tolerating PO and urinating. Last Vital Signs Temp Pulse Resp BP Pulse Ox 97.8 F 60 18 121/70 98 01/07/19 06:00 01/07/19 06:00 01/07/19 06:00 01/07/19 06:00 01/06/19 20:35 CBC, BMP 01/07/19 06:30 01/07/19 06:30 PE: Gen: A&O x3 Resp: breathing comfortably Abd :soft, nondistended, RUQ tenderness, incisions are clean with no erythema or discharge. Problem List - Problems (1) Gallstone pancreatitis Assessment/Plan: Plan -emphasize OOB/ambulate -pain control -DVT ppx Code(s): K85.10 - BILIARY ACUTE PANCREATITIS WITHOUT NECROSIS OR INFECTION
--- NOTE | 2019-01-07 10:43 | DS ---
Physical Exam: SUBJECTIVE: Patient seen and examined at bedside. no acute events overnight. POD1 lap dario w/o complications. pt abd pain much improved. tolerating PO and + flatus. denies fever, chills, cp, sob, n/v/d. OBJECTIVE: Vital Signs Period Temp Pulse Resp BP Sys/Bonilla Pulse Ox Last 24 Hr 97.8 F-98.7 F 60-85 14-20 116-128/65-72 95-99 PHYSICAL EXAM GENERAL: AOX3, NAD HEAD: NCAT EYES: extraocular movements intact, sclera anicteric, conjunctiva clear. No lid lag. EARS, NOSE, THROAT: nares patent, oropharynx clear without exudates NECK: Normal range of motion, supple LUNGS: CTAB HEART: RRR, normal S1 and S2 ABDOMEN: Soft, normoactive BS. ND. mild diffuse TTP, dressings c/d/i UPPER EXTREMITIES: L hand contracted LOWER EXTREMITIES: warm, well-perfused. No peripheral edema. NEUROLOGICAL: Cranial nerves II-XII grossly intact. Normal speech. Gait not observed PSYCHIATRIC: Cooperative. Good eye contact. Appropriate mood and affect. SKIN: Warm, dry LABS Laboratory Results - last 24 hr 01/07/19 01/07/19 06:30 06:30 WBC 6.9 RBC 4.01 Hgb 11.1 Hct 32.6 MCV 81.3 MCH 27.7 MCHC 34.0 RDW 15.6 Plt Count 223 MPV 8.3 Absolute Neuts (auto) 5.7 Neutrophils % 83.2 H D Lymphocytes % 11.6 D Monocytes % 4.7 Eosinophils % 0.0 D Basophils % 0.5 Nucleated RBC % 0 Sodium 139 Potassium 4.6 Chloride 104 Carbon Dioxide 28 Anion Gap 6 L BUN 7 Creatinine 0.7 Creat Clearance w eGFR > 60 Random Glucose 128 H Calcium 8.4 L Total Bilirubin 0.4 AST 49 H ALT 49 Alkaline Phosphatase 72 Total Protein 5.8 L Albumin 3.1 L [id number] NM/HIDA SCAN HIDA SCAN CLINICAL INDICATION: 48-year-old female with gallstones and abdominal pain with ultrasound findings suggestive of cholecystitis TECHNIQUE: Following the intravenous administration of 6.7 mCi of Tc 99M of Choletec, dynamic images of the abdomen in the anterior projection were obtained through 120minutes. COMPARISON: Ultrasound of the abdomen dated January 04, 2019. FINDINGS: There is normal homogeneous perfusion of the liver with no evidence of focal lesion. Extraction of tracer from the blood pool by the liver parenchyma is normal. Tracer appears promptly and within the biliary tree. The gallbladder begins to fill by 90minutes post injection of tracer and only filled minimally. Tracer in the small bowel is first seen at 15minutes. The proximal CBD/CHD appears to be dilated. IMPRESSION: Delayed filling of the gallbladder with only partial filling of the base. The majority of the gallbladder doesn't appear to be filling with tracer after 120 minutes of imaging. The portion that is filling corresponds to a locule at the base of the gallbladder seen on ultrasound. Whether this represents a dilated cystic duct with occlusion of the neck or this represents partial filling of the gallbladder cannot be discerned. Correlation with patient 's symptoms, white blood cell count and LFTs is needed to assess for acute versus chronic cholecystitis. Acute cholecystitis however with partial-not complete obstruction of the cystic duct is favored. Dilated proximal CHD/CBD with no delayed biliary enteric transit of tracer. This is likely on the basis of normal variant dilatation of the CBD/CHD such as seen with choledochal cystfusiform dilatation. Correlation with bilirubin level is needed. If indicated MRCP may be obtained for further evaluation. 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 Found to have acute calculus cholecystitis and pancreatitis. POD1 lap dario w/o complications Admitted for Acute Cholecystitis and Pancreatitis 2/2 Cholelithiasis, now POD1 lap dario w/o complications. On admission, afebrile, VSS, Lipase 3000, bcx neg, Lipid panel nl, U/S RUQ: acute calculus cholecystitis. dilated CBD 7mm. CXR: No acute pathology. Surgery (Dr. Calderón), ID, GI consulted. HIDA showed no vs partial? biliary obstruction and delayed GB uptake. pt medically managed w/ pain ctl, IVF and Zosyn. Underwent lap dario w/o complications and is now POD1 tolerating PO +flatus. pt will f/u outpt w/ Surgery in 1 week and pain ctl w/ tylenol/ NSAIDs. Hemorrhoids - last colonoscopy last year, per pt normal -Notes some blood in stool when wiping -H/H stable 11.6 (baseline), -encouraged to f/u oupt w/ PCP/GI pt is stable and ready for discharge w/ appropriate f/u Minutes to complete discharge: 38 Discharge Summary Reason For Visit: PANCREATITIS Current Active Problems Gallstone pancreatitis (Acute) Pancreatitis (Acute) Condition: Stable - Instructions Diet, Activity, Other Instructions: You came in for abdominal pain and were found t have pancreatitis and gallstones causing inflammation in your gallbladder. we gave you fluids, antibiotics, and you went for laprascopic surgery to remove your gallbladder. Of note, you mentioned to us that you have Hemorrhoids that bleed when wiping. This is not a medical emergency and your blood counts remained stable in the hospital. Please follow up with your primary care physician or GI doctor about this in the office Please resume your home meds Please follow up with your primary care physician within 1 week. Please follow up with Surgeon Dr. Calderón within [address] Calderón Discharge Instructions Dear WERNER RAMÍREZ, Post Operative Instructions Physical activity Resume your normal everyday activity as tolerated no heavy lifting or exercise until seen by your surgeon. You may walk unlimited amounts of and climb stairs. You may resume driving the car when you feel safe and comfortable behind the wheel. Wound care If you have a bandage, leave it on, and keep dry for 48-72 hours. After that time discard the outer bandage. You have a liquid bandage underneath the outer dressing. Do not remove this, you may notice it begins to flake off over the next few days. This is normal, it will continue to come off on its own. You may shower after removing the outer dressing in 48-72hours. When showering, allow soap and water to run over the incision, do not scrub the incision. Pat dry well after showering. Diet There are no dietary restrictions. Eat healthy, high-fiber foods. Drink 6 to 8 glasses of liquid each day. This will assist in keeping your bowels are regular. You may need to take over the counter stool softeners if you are using narcotic pain prescriptions. You may use DulcoEase, take as directed. Pain management You may take Tylenol (Acetaminophen) or Ibuprofen (for example, Motrin, Advil etc.) for mild pain. Any pain prescription medication ordered should be taken as prescribed for moderate to severe pain. Do not drink, drive or operate heavy machinery while taking narcotic pain medications. Do not take additional Tylenol (Acetaminophen) with your narcotic pain prescription if it contains Acetaminophen. Call Dr. Calderón for any of the following: Severe pain not relieved by medication Fever of 101 or higher Excessive bleeding or drainage on dressing Inability to urinate Call the office at [phone] for an appointment in seven days. Referrals: Rafael Calderón MD [Staff Physician] - 1 Week Vicki Wild MD [Primary Care Provider] - 1 Week Disposition: HOME - Home Medications Comprehensive Discharge Medication List: Ambulatory Orders Aspirin 81 mg PO DAILY 03/09/18 Atorvastatin Ca [Lipitor] 10 mg PO HS 03/09/18 Naproxen 500 mg PO BID 01/04/19 Pantoprazole Sodium 40 mg PO DAILY 01/04/19 - Discharge Referral Referred to [facility] Med P.C.: No
--- NOTE | 2019-01-07 11:08 | PN ---
Teaching Attending Note Name of Resident: Girish Maguire ATTENDING PHYSICIAN STATEMENT I saw and evaluated the patient. I reviewed the resident's note and discussed the case with the resident. I agree with the resident's findings and plan as documented. SUBJECTIVE:c/o pain at surgical sites. has not gotten out of bed since surgery. tolerated breakfast. denies CP,SOB, fever, chills, N/V/C/D. no flatus OBJECTIVE: Last Vital Signs Temp Pulse Resp BP Pulse Ox 97.8 F 60 18 121/70 98 01/07/19 06:00 01/07/19 06:00 01/07/19 06:00 01/07/19 06:00 01/06/19 20:35 General NAD ABdomen soft slightly distended. diffuse tenderness surgical bandages c/d/i ASSESSMENT AND PLAN: 48 year old female with history of GERD, HLD, history of gallstones, Brain AVM s /p clipping 1988 with residual Left hand contracture/weakness, presents with epigastric/RUQ abdominal pain, and found to have acute pancreatitis and acute cholecystitis 1. Acute Cholecystitis secondary to Cholelithiasis-s/p laprascopic cholecystectomy 01/06. tolerated well. diet advanced this am. will monitor to ensure she is toleratinga nd pain is controlled. ID and GI on board. 2. Acute Pancreatitis, likely sec to Cholelithiasis. clinically improved. 3. Dyslipidemia - statin 4. DVT ppx- hep sq 5. anticipate d/c later today
[2019-01-07] MEDS: DOCUSATE SODIUM 100 MG CAPSULE (FP) PO SCH ×2 (12:06→21:14)
[2019-01-07] MEDS: NAPROXEN 500 MG TABLET (FP) PO SCH ×2 (12:06→21:14)
--- NOTE | 2019-01-07 12:41 | EKG ---
Test Reason : Blood Pressure : / mmHG Vent. Rate : 066 BPM Atrial Rate : 066 BPM P-R Int : 148 ms QRS Dur : 106 ms QT Int : 392 ms P-R-T Axes : 035 066 044 degrees QTc Int : 410 ms NORMAL SINUS RHYTHM NORMAL ECG WHEN COMPARED WITH ECG OF 10-MAR-2018 00:24, QRS DURATION HAS INCREASED Confirmed by SANGEETHA CHEN MD ([id number]) on 01/07/2019 12:40:50 PM Referred By: Confirmed By:SANGEETHA CHEN MD
[2019-01-07] MEDS: ONDANSETRON 4 MG/2 ML VIAL IVPUSH PRN (13:19)
--- NOTE | 2019-01-07 15:46 | PN ---
Physical Exam: SUBJECTIVE: Patient seen and examined at bedside. no acute events overnight. POD1 lap dario w/o complications. pt abd pain much improved. tolerating PO and + flatus. pt lives alone and is concerned about ambulating up stairs bec still feels weak. denies fever, chills, cp, sob, n/v/d. OBJECTIVE: Vital Signs Period Temp Pulse Resp BP Sys/Bonilla Pulse Ox Last 24 Hr 97.8 F-98.7 F 60-85 14-20 104-128/58-72 95-98 GENERAL: AOX3, NAD HEAD: NCAT EYES: extraocular movements intact, sclera anicteric, conjunctiva clear. No lid lag. EARS, NOSE, THROAT: nares patent, oropharynx clear without exudates NECK: Normal range of motion, supple LUNGS: CTAB HEART: RRR, normal S1 and S2 ABDOMEN: Soft, normoactive BS. ND. mild diffuse TTP, dressings c/d/i UPPER EXTREMITIES: L hand contracted LOWER EXTREMITIES: warm, well-perfused. No peripheral edema. NEUROLOGICAL: Cranial nerves II-XII grossly intact. Normal speech. Gait not observed PSYCHIATRIC: Cooperative. Good eye contact. Appropriate mood and affect. SKIN: Warm, dry Laboratory Results - last 24 hr 01/07/19 01/07/19 06:30 06:30 WBC 6.9 RBC 4.01 Hgb 11.1 Hct 32.6 MCV 81.3 MCH 27.7 MCHC 34.0 RDW 15.6 Plt Count 223 MPV 8.3 Absolute Neuts (auto) 5.7 Neutrophils % 83.2 H D Lymphocytes % 11.6 D Monocytes % 4.7 Eosinophils % 0.0 D Basophils % 0.5 Nucleated RBC % 0 Sodium 139 Potassium 4.6 Chloride 104 Carbon Dioxide 28 Anion Gap 6 L BUN 7 Creatinine 0.7 Creat Clearance w eGFR > 60 Random Glucose 128 H Calcium 8.4 L Total Bilirubin 0.4 AST 49 H ALT 49 Alkaline Phosphatase 72 Total Protein 5.8 L Albumin 3.1 L Active Medications Generic Name Dose Route Start Last Admin Trade Name Freq PRN Reason Stop Dose Admin Acetaminophen 1,000 mg 01/07/19 15:00 Tylenol - PO Q6H PRN PAIN LEVEL 6-10 Atorvastatin Calcium 10 mg 01/05/19 22:00 01/06/19 21:03 Lipitor - PO 10 mg HS CHINO Administration Docusate Sodium 100 mg 01/07/19 11:15 01/07/19 12:06 Colace - PO 100 mg BID CHINO Administration Fentanyl 50 mcg 01/06/19 15:08 01/06/19 15:57 Sublimaze Injection - IVPUSH 50 mcg [id number] PRN Administration PAIN-PACU ORDER X 4 DOSES ONLY Heparin Sodium (Porcine) 5,000 unit 01/04/19 14:00 01/07/19 13:18 Heparin - SQ 5,000 unit TID CHINO Administration Naproxen 500 mg 01/07/19 11:15 01/07/19 12:06 Naprosyn - PO 500 mg BID CHINO Administration Ondansetron HCl 4 mg 01/06/19 15:08 01/07/19 13:19 Zofran Injection IVPUSH 4 mg Q6H PRN Administration NAUSEA AND/OR VOMITING Oxycodone HCl 5 mg 01/06/19 15:36 Roxicodone - PO Q4H PRN PAIN LEVEL 1-5 Oxycodone HCl 10 mg 01/06/19 15:36 01/07/19 13:19 Roxicodone - PO 10 mg Q4H PRN Administration PAIN LEVEL 6-10 Pantoprazole Sodium 40 mg 01/06/19 10:00 01/07/19 09:30 Protonix - PO 40 mg DAILY CHINO Administration Senna 1 tab 01/07/19 22:00 Senna - PO HS [facility] ASSESSMENT/PLAN: 48 y/o F w/PMH of GERD, HLD, hemorrhoids, history of gallstones, 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 Found to have acute calculus cholecystitis and pancreatitis. POD1 lap dario w/o complications Acute Cholecystitis and Pancreatitis 2/2 Cholelithiasis - POD1 lap dario w/o complications -CXR: No acute pathology, Lipase 3000, U/S RUQ: acute calculus cholecystitis. dilated CBD 7mm. -Lipase levels decreased to 400s -dc Zosyn -ID consult -Surgery consult -GI consult - dc LR @ 175 ml/hr -pain ctl: tylenol/home naproxen/ oxycodone -zofran 4mg q6h IV PRN for nausea -HIDA reviewed see above -restart asa prior to dc -Incentive spirometer for post op -PT eval tolerating PO and +flatus GERD -c/w Protonix 40 mg PO qd HLD -lipitor 10 mg po qhs -Lipid panel nl -Trig levels nl Hemorrhoids - last colonoscopy last year, per pt normal -Notes some blood in stool when wiping -H/H stable 11.6 (baseline), -encouraged to f/u oupt w/ PCP/GI ppx -Heparin 5000 units sq q8h -c/w Protonix 40 mg PO qd -bowel regimen: colace/senna FEN -PO hydration -Monitor electrolytes -low fat low cholesterol Dispo: m/s POD1 lap dario w/o complications pt lives alone and is concerned about ambulating up stairs bec still feels weak. will monitor 1 more day, anticipate dc arnaldo morning Visit type - Emergency Visit Emergency Visit: Yes ED Registration Date: 01/04/19 Care time: The patient presented to the Emergency Department on the above date and was hospitalized for further evaluation of their emergent condition. - New Patient This patient is new to me today: Yes Date on this admission: 01/07/19 - Critical Care Critical Care patient: No
[2019-01-07] MEDS ORDERED: ONDANSETRON 4 MG/2 ML VIAL IVPUSH ONE (17:29)
[2019-01-07] MEDS: ACETAMINOPHEN 500 MG TABLET (FP) PO PRN (21:14)
[2019-01-07] MEDS: ATORVASTATIN CA 10 MG TABLET (FP) PO SCH (21:15)
[2019-01-07] MEDS ORDERED: SENNOSIDES 8.6MG TABLET (FP) PO SCH (22:00)
[2019-01-08] MEDS: HEPARIN NA (PORCINE) 5,000 UNITS/ML 1ML VIAL SQ SCH (06:23)
[2019-01-08] MEDS: ACETAMINOPHEN 500 MG TABLET (FP) PO PRN ×2 (06:23→12:21)
[2019-01-08] MEDS ORDERED: POLYETHYLENE GLYCOL 3350 119 GM BTL PO ONE (08:03)
--- NOTE | 2019-01-08 08:16 | DS ---
Physical Exam: SUBJECTIVE: Patient seen and examined at bedside. no acute events overnight. POD2 lap dario w/o complications. pt abd pain much improved. tolerating PO and + flatus. denies fever, chills, cp, sob, n/v/d. OBJECTIVE: Vital Signs Period Temp Pulse Resp BP Sys/Bonilla Pulse Ox Last 24 Hr 98.1 F-98.5 F 65-82 18-19 104-124/58-77 98-99 PHYSICAL EXAM GENERAL: AOX3, NAD HEAD: NCAT EYES: extraocular movements intact, sclera anicteric, conjunctiva clear. No lid lag. EARS, NOSE, THROAT: nares patent, oropharynx clear without exudates NECK: Normal range of motion, supple LUNGS: CTAB HEART: RRR, normal S1 and S2 ABDOMEN: Soft, normoactive BS. ND. mild diffuse TTP, dressings c/d/i UPPER EXTREMITIES: L hand contracted LOWER EXTREMITIES: warm, well-perfused. No peripheral edema. NEUROLOGICAL: Cranial nerves II-XII grossly intact. Normal speech. Gait not observed PSYCHIATRIC: Cooperative. Good eye contact. Appropriate mood and affect. SKIN: Warm, dry LABS/Imaging [id number] NM/HIDA SCAN HIDA SCAN CLINICAL INDICATION: 48-year-old female with gallstones and abdominal pain with ultrasound findings suggestive of cholecystitis TECHNIQUE: Following the intravenous administration of 6.7 mCi of Tc 99M of Choletec, dynamic images of the abdomen in the anterior projection were obtained through 120minutes. COMPARISON: Ultrasound of the abdomen dated January 04, 2019. FINDINGS: There is normal homogeneous perfusion of the liver with no evidence of focal lesion. Extraction of tracer from the blood pool by the liver parenchyma is normal. Tracer appears promptly and within the biliary tree. The gallbladder begins to fill by 90minutes post injection of tracer and only filled minimally. Tracer in the small bowel is first seen at 15minutes. The proximal CBD/CHD appears to be dilated. IMPRESSION: Delayed filling of the gallbladder with only partial filling of the base. The majority of the gallbladder doesn't appear to be filling with tracer after 120 minutes of imaging. The portion that is filling corresponds to a locule at the base of the gallbladder seen on ultrasound. Whether this represents a dilated cystic duct with occlusion of the neck or this represents partial filling of the gallbladder cannot be discerned. Correlation with patient 's symptoms, white blood cell count and LFTs is needed to assess for acute versus chronic cholecystitis. Acute cholecystitis however with partial-not complete obstruction of the cystic duct is favored. Dilated proximal CHD/CBD with no delayed biliary enteric transit of tracer. This is likely on the basis of normal variant dilatation of the CBD/CHD such as seen with choledochal cystfusiform dilatation. Correlation with bilirubin level is needed. If indicated MRCP may be obtained for further evaluation. 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 Found to have acute calculus cholecystitis and pancreatitis. POD2 lap dario w/o complications Admitted for Acute Cholecystitis and Pancreatitis 2/2 Cholelithiasis, now POD2 lap dario w/o complications. On admission, afebrile, VSS, Lipase 3000, bcx neg, Lipid panel nl, U/S RUQ: acute calculus cholecystitis. dilated CBD 7mm. CXR: No acute pathology. Surgery (Dr. Calderón), ID, GI consulted. HIDA showed no vs partial? biliary obstruction and delayed GB uptake. pt medically managed w/ pain ctl, IVF and Zosyn. Underwent lap dario w/o complications and is now POD2 tolerating PO +flatus. pt will f/u outpt w/ Surgery in 1 week and pain ctl w/ tylenol/ NSAIDs. Hemorrhoids - last colonoscopy last year, per pt normal -Notes some blood in stool when wiping -H/H stable 11.1 (baseline), -encouraged to f/u oupt w/ PCP/GI pt is stable and ready for discharge w/ appropriate f/u Minutes to complete discharge: 40 Discharge Summary Reason For Visit: PANCREATITIS Current Active Problems Gallstone pancreatitis (Acute) Pancreatitis (Acute) Condition: Stable - Instructions Diet, Activity, Other Instructions: You came in for abdominal pain and were found to have pancreatitis and gallstones causing inflammation in your gallbladder. we gave you fluids, antibiotics, and you went for laprascopic surgery to remove your gallbladder. Of note, you mentioned to us that you have Hemorrhoids that bleed when wiping. This is not a medical emergency and your blood counts remained stable in the hospital. Please follow up with your primary care physician or GI doctor about this in the office Please resume your home meds Please follow up with your primary care physician within 1 week. Please follow up with Surgeon Dr. Calderón within [address] Calderón Discharge Instructions Dear WERNER RAMÍREZ, Post Operative Instructions Physical activity Resume your normal everyday activity as tolerated no heavy lifting or exercise until seen by your surgeon. You may walk unlimited amounts of and climb stairs. You may resume driving the car when you feel safe and comfortable behind the wheel. Wound care If you have a bandage, leave it on, and keep dry for 48-72 hours. After that time discard the outer bandage. You have a liquid bandage underneath the outer dressing. Do not remove this, you may notice it begins to flake off over the next few days. This is normal, it will continue to come off on its own. You may shower after removing the outer dressing in 48-72hours. When showering, allow soap and water to run over the incision, do not scrub the incision. Pat dry well after showering. Diet There are no dietary restrictions. Eat healthy, high-fiber foods. Drink 6 to 8 glasses of liquid each day. This will assist in keeping your bowels are regular. You may need to take over the counter stool softeners if you are using narcotic pain prescriptions. You may use DulcoEase, take as directed. Pain management You may take Tylenol (Acetaminophen) or Ibuprofen (for example, Motrin, Advil etc.) for mild pain. Any pain prescription medication ordered should be taken as prescribed for moderate to severe pain. Do not drink, drive or operate heavy machinery while taking narcotic pain medications. Do not take additional Tylenol (Acetaminophen) with your narcotic pain prescription if it contains Acetaminophen. Call Dr. Calderón for any of the following: Severe pain not relieved by medication Fever of 101 or higher Excessive bleeding or drainage on dressing Inability to urinate Call the office at [phone] for an appointment in seven days. Referrals: Rafael Calderón MD [Staff Physician] - 1 Week Vicki Wild MD [Primary Care Provider] - 1 Week Disposition: HOME - Home Medications Comprehensive Discharge Medication List: Ambulatory Orders Aspirin 81 mg PO DAILY 03/09/18 Atorvastatin Ca [Lipitor] 10 mg PO HS 03/09/18 Naproxen 500 mg PO BID 01/04/19 Pantoprazole Sodium 40 mg PO DAILY 01/04/19 This patient is new to me today: Yes Date on this admission: 01/08/19 Emergency Visit: Yes ED Registration Date: 01/04/19 Care time: The patient presented to the Emergency Department on the above date and was hospitalized for further evaluation of their emergent condition. Critical Care patient: No - Discharge Referral Referred to [facility] Med [facility] No
--- NOTE | 2019-01-08 08:49 | PN ---
Teaching Attending Note Name of Resident: Girish Maguire ATTENDING PHYSICIAN STATEMENT I saw and evaluated the patient. I reviewed the resident's note and discussed the case with the resident. I agree with the resident's findings and plan as documented. SUBJECTIVE:pt stayed due to uncontrolled pain. now improved. tolerating diet. passing flatus OBJECTIVE: Last Vital Signs Temp Pulse Resp BP Pulse Ox 98.1 F 72 18 118/71 99 01/08/19 08:02 01/08/19 08:02 01/08/19 08:02 01/08/19 08:02 01/07/19 21:00 General NAD ABdomen soft slightly distended. slight diffuse tenderness surgical bandages c/d /i ASSESSMENT AND PLAN: 48 year old female with history of GERD, HLD, history of gallstones, Brain AVM s /p clipping 1988 with residual Left hand contracture/weakness, presents with epigastric/RUQ abdominal pain, and found to have acute pancreatitis and acute cholecystitis 1. Acute Cholecystitis secondary to Cholelithiasis-s/p laprascopic cholecystectomy 3/5. tolerated diet. ID and GI on board. 2. Acute Pancreatitis, likely sec to Cholelithiasis. clinically improved. 3. Dyslipidemia - statin 4. arthritis- takes standing naproxen BID, advised her of bleeding risks assoc with nursing home NSAID use in conjuncture with ASA. encouraged to f.u with rheum to determine alternatives 4. DVT ppx- hep sq 5. d/c home
[2019-01-08] MEDS: DOCUSATE SODIUM 100 MG CAPSULE (FP) PO SCH (09:24)
[2019-01-08] MEDS: PANTOPRAZOLE 40 MG TABLET (FP) PO SCH (09:24)
[2019-01-08] MEDS: NAPROXEN 500 MG TABLET (FP) PO SCH (09:24)
[2019-01-08] MEDS ORDERED: MINERAL OIL ENEMA 133 ML ENEMA PR ONE (11:08)
--- NOTE | 2019-01-08 11:19 | PN ---
Progress Note (short form) - Note Progress Note: surgery POD #2 s/p lap dario. Pt seen and examined in chair at bedside. Pt complaining gas pain/constipation and nausea. She has passed gas on POD #0 but not since then. She is tolerating her diet but doesn't have much appetite. The patient has been ambulating without assistance, and voiding. She denies CO, SOB vomiting, fever, chills. Vital Signs Temp 98.1 F 01/08/ 08:02 Pulse 72 01/08/19 08:02 Resp 18 01/08/19 08:02 BP 118/71 01/08/19 08:02 Pulse Ox 99 01/08/19 09:00 Intake & Output 01/07/01/07/01/08/19 11:59 23:59 11:59 Intake Total 980 200 Balance 980 200 Intake: Oral 980 200 Other: Voiding Method Toilet Toilet Toilet # Unmeasured Voids Void 3 3 2 Bowel Movement No No No CBC, BMP 03 06:30 01/07/19 06:30 PE: Gen: A&O x3, NAD Resp:Unlabored resp on RA Abd:obese, soft, nondistended, TTP in RUQ and epigasctic areas. Dressings are c/ d/i with surrounding tissue intact and no erythema or evidence of d/c. B/L LE Compartments soft, supple and non-tender with +2 DP pulses. Problem List - Problems (1) Gallstone pancreatitis Assessment/Plan: POD #2 lap dario with consitpation and gas pain. 1) Fleet Enema added to bowel regimen 2) DVT and GI prophylaxis 3) Encourage OOB/ ambulation 4) Hydrate 5) Simethcone for gas pain 6) D/c planning for home pending BM Evaluation and plan discussed with Dr Calderón Code(s): K85.10 - BILIARY ACUTE PANCREATITIS WITHOUT NECROSIS OR INFECTION
[2019-01-08] MEDS ORDERED: SIMETHICONE 80 MG TAB.CHEW (FP) PO PRN (11:28)
[2019-01-08] MEDS: ONDANSETRON 4 MG/2 ML VIAL IVPUSH PRN (12:12)
[2019-01-08] MEDS ORDERED: DOCUSATE SODIUM 100 MG CAPSULE (FP) PO SCH (14:00)
[2019-01-08 14:33] VITALS: BP 119/72; TEMP 98.2
[2019-01-08 14:34] VITALS: PULSE 81
--- NOTE | 2019-01-08 16:23 | EKG ---
Test Reason : Blood Pressure : / mmHG Vent. Rate : 073 BPM Atrial Rate : 073 BPM P-R Int : 154 ms QRS Dur : 074 ms QT Int : 392 ms P-R-T Axes : 075 024 028 degrees QTc Int : 431 ms NORMAL SINUS RHYTHM NORMAL ECG WHEN COMPARED WITH ECG OF 04-JAN-2019 04:56, NO SIGNIFICANT CHANGE WAS FOUND Confirmed by KARLIE BEATTY MD ([id number]) on 01/08/2019 4:23:12 PM Referred By: Confirmed By:KARLIE BEATTY MD
--- NOTE | 2019-01-08 17:29 | PATH ---
Surgical Pathology Report Patient Name: WERNER RAMÍREZ Med. Rec. #: [id number] /Age/Gender: 1970 (Age: 48) / F Account: [id number] Location: [facility] MED/SURG Taken: 01/06/2019 Received: 01/07/2019 Reported: 01/08/2019 Physicians: Anh Pedersen M.D. Specimen(s) Received GALLBLADDER Clinical History Pancreatitis Final Diagnosis GALLBLADDER, LAPAROSCOPIC CHOLECYSTECTOMY: CHRONIC CHOLECYSTITIS WITH CHOLELITHIASIS. Electronically Signed Natacha Merlos M.D. Gross Description Received in formalin, labeled "gallbladder," is a 7.0 x 2.5 x 1.5 cm. gallbladder with a 0.2 cm. in length portion of cystic duct attached. The outer surface is helm green and varies from smooth to shaggy. The lumen contains green, tenacious bile as well as 3 brown-black, fragmented choleliths ranging from 0.2-0.5 cm in greatest dimension. The mucosa is yellow-brown. The wall of the gallbladder averages 0.2 cm. in thickness. Learning And Development Intern sections are submitted in one cassette. /01/07/2019 saudi01/07/2019
== END 2019-01-08 15:11 | disposition home or self-care (01) | DRG 417 ==
LOC: JER 04:00 → JERBED 06:19 → J7W 10:14
PROVIDERS: ADMIT Internal Medicine; ATTEND Internal Medicine
PROC: 0FT44ZZ Resection of Gallbladder, Percutaneous Endoscopic Approach (ICD-10-PCS; principal; 2019-01-06 12:00)
DX: K80.00 Calculus of gallbladder with acute cholecystitis without obstruction (principal); K85.10 Biliary acute pancreatitis without necrosis or infection; E78.5 Hyperlipidemia, unspecified; K21.9 Gastro-esophageal reflux disease without esophagitis; M62.442 Contracture of muscle, left hand; K64.9 Unspecified hemorrhoids
CPT/HCPCS: 36415; 71046-TC-FY; 76705-TC; 78226-TC; 80053; 80061; 81003; 81015; 83690; 83721; 83735; 84100; 84478; 84484; 85025; 85610; 85730; 86850; 86900; 86901; 87040; 88304-TC; 93005; 93010; 94010; 94760; 97116-GP; 97162-GP; 99283-25; A9537; J0131; J1644; J7030

== ENCOUNTER 2019-06-13 16:10 | Inpatient (IN) | payer OTHER ==
[2019-06-13] MEDS ORDERED: SODIUM CHLORIDE 1,000 ML IV STA (17:27)
[2019-06-13] MEDS ORDERED: FAMOTIDINE 20 MG/50 ML IVPB 20 MG/50 ML MG IVPB ONE ×2 (17:27→18:05)
--- NOTE | 2019-06-13 17:58 | PDOC ---
Documentation entered by Daniel Nunez SCRIBE, acting as scribe for Blanche Diaz MD. Blanche Diaz MD: This documentation has been prepared by the Enrique kuhn Daniel, SCRIBE, under my direction and personally reviewed by me in its entirety. I confirm that the documentation accurately reflects all work, treatment, procedures, and medical decision making performed by me. History of Present Illness - General Chief Complaint: Pain, Acute Stated Complaint: ABD PAIN/ COLD SWEAT Time Seen by Provider: 06/13/19 17:27 History Source: Patient Exam Limitations: No Limitations - History of Present Illness Initial Comments: 06/13/19 17:58 The patient is a 49 year old female with a past medical history of HLD, rheumatoid arthritis, subarachnoid hemorrhage due to AVM (surgery in 1988 and residual left sided weakness and left hand contracture), GERD, hemorrhoids, and cholecystectomy (01/20) here today for evaluation of epigastric pain. The patient reports that approximately 3 hours ago she developed sudden epigastric pain that lasted for 30 minutes with associated nausea, cold sweats, and a feeling like she was going to pass out. Patient notes that she is currently being worked up by her surgeon Dr. Ricardo Caruso for a possible second gallbladder (patient had an MRI 3 weeks ago). Patient currently has no symptoms. she is s/p lap dario in January 2019. Patient denies headache, lightheadedness. Denies fever. Denies chest pain, shortness of breath. Denies vomiting, diarrhea. no sick contacts, no suspicious food intake. Allergies: NKA Social history: Denies tobacco, illicit drug, and alcohol use. 06/13/19 19:14 Past History - Past Medical History Allergies/Adverse Reactions: Allergies Allergy/AdvReac Type Severity Reaction Status Date / Time No Known Allergies Allergy Verified 06/13/19 16:21 Home Medications: Ambulatory Orders Aspirin 81 mg PO DAILY 03/09/18 Atorvastatin Ca [Lipitor] 10 mg PO HS 03/09/18 Naproxen 500 mg PO BID 01/04/19 Pantoprazole Sodium 40 mg PO DAILY 01/04/19 COPD: No GI Disorders: Yes Hypercholesterolemia: Yes Seizures: Yes Other medical history: RA - Surgical History Cholecystectomy: Yes Neurologic Surgery: Yes (BRAIN in 1988) - Suicide/Smoking/Psychosocial Hx Smoking History: Never smoked Have you smoked in the past 12 months: No Hx Alcohol Use: Yes Drug/Substance Use Hx: No Substance Use Type: None Review of Systems - Review of Systems Able to Perform ROS?: Yes Comments:: 06/13/19 18:04 Constitutional: no fevers or chills. +sweats. HEENT: +cold sweats. no headache or dizziness. No congestion. No visual/hearing disturbances. CVS: no cp or syncope. Resp: no sob. No cough. Gastrointestinal: +epigastric pain. +nausea. no vomiting. no diarrhea. Genitourinary: no urinary sx, hematuria. no incontinence. MUSCULOSKELETAL: No joint pain and swelling. No neck or back pain. +chronic arm contracture SKIN: no redness or skin changes, no discharge, no rash. No wounds. Hematologic: no easy bruising/bleeding. NEUROLOGIC: No headache, dizziness, LOC or altered mental status. No weakness, numbness or tingling. Psych: no anxiety or depression Allergic/Immunologic: no allergies All other systems reviewed and negative, or as documented in HPI. 06/13/19 19:15 *Physical Exam - Vital Signs Last Vital Signs Temp Pulse Resp BP Pulse Ox 98.5 F 75 16 102/62 100 06/13/19 16:18 06/13/19 16:18 06/13/19 16:18 06/13/19 16:18 06/13/19 16:18 - Physical Exam Comments: 06/13/19 18:05 General: Well appearing, awake and alert, NAD. HEENT: NCAT, PERRL, EOMI, clear conjunctiva, anicteric, moist mucus membranes, clear oropharynx, no oral lesions.. Neck: neck supple, FROM Resp: CTAB, normal and even respirations, no respiratory distress CVS: RRR, no murmurs, 2+ peripheral pulses throughout, no peripheral edema Abdomen: soft, NTND, no rebound or guarding. No CVAT. Back: nontender, normal inspection and ROM MSK: no edema, GARCIA x4, ROM intact. No clubbing or cyanosis. normal bulk and tone. +chronic LUE contracture. Extremities: no calf tenderness Neuro: alert, oriented appropriately; no focal neurologic deficits, chronic LUE contracture, 4/5 strength, gait stable, ambulatory Skin: warm and well perfused, cap refill <2 sec, normal color 06/13/19 19:15 Heart Score/ECG Review - History History: Slightly suspicious - Electrocardiogram EKG: Normal - Age Age: 45-65 - Risk Factors Based on the list above the patient has:: No risk factors known - Troponin Troponin: </= normal limit - Score Heart Score - Total: 1 #1 ECG reviewed & interpreted by me at: 18:32 General ECG Interpretation: Sinus Rhythm, Normal Rate, Normal Intervals Compared to previous ECG there are: No significant change 06/13/19 19:16 nonspecific twave abnormalities in inferior leads. ED Treatment Course - LABORATORY CBC & Chemistry Diagram: 06/13/19 18:33 06/13/19 18:33 Medical Decision Making - Medical Decision Making 06/13/19 18:52 See HPI for details. Prior notes reviewed, including admissions, discharges and consultations. Vital signs reviewed, wnl. Vital Signs Temp Pulse Resp BP Pulse Ox 98.5 F 75 16 102/62 100 06/13/19 16:18 06/13/19 16:18 06/13/19 16:18 06/13/19 16:18 06/13/19 16:18 DDX retained biliary stones, with 2nd GB, GERD, PUD, gastritis, ACS, arrhythmia , anemia, atypical cp, electrolyte/metabolic derangements. laboratory results and imaging reviewed, basic labs and lytes, LFTs/lipase Cardiac panel/trop, serial check in 3 hours to check for dynamic changes, reassess EKG normal sinus rhythm, no interval abnormalities, narrow QRS, ST and T wave segments and morphology normal. Nonspecific T wave abnormalities - similar to prior ED course -interventions: IVF, pepcid. no pain currently abdomen soft and nontender, no peritoneal findings. no cp or sob, no respiratory distress. abdomen US to check for retained biliary stones/choledocholithiasis, 2nd GB possibly. already has outpatient f/u with surgeon Dr Caruso for followup testing with MRI results of 2nd GB found incidentally. s/o Dr Simmons pending, labs, workup, reassessment, serial trop/EKG in 3 hours for atypical cp sx. heart score 1 with no comorbidities/ unremarkable EKG in low risk category with the epigastric pain. 06/13/19 19:16 06/13/19 19:18 06/13/19 19:19 *DC/Admit/Observation/Transfer Diagnosis at time of Disposition: Epigastric pain - Discharge Dispostion Condition at time of disposition: Stable - Referrals - Patient Instructions - Post Discharge Activity
[2019-06-13 18:47] LABS: BASO % 0.5 % (0-2.0); EOS % 1.5 % (0-4.5); HEMATOCRIT 40.1 % (32.4-45.2); LYMPH % 10.8 % (8-40); MCH 26.8 pg (25.7-33.7); MCHC 32.4 g/dl (32.0-36.0); MEAN CELL VOLUME 82.6 fl (80-96); MEAN PLT VOLUME 8.8 fl (7.5-11.1); MONO % 5.3 % (3.8-10.2); NEUT % 81.9 % (42.8-82.8); PLATELET COUNT 244 K/MM3 (134-434); RBC 4.85 M/mm3 (3.60-5.2); RDW 16.6 % (11.6-15.6); WHITE BLOOD COUNT 12.7 K/mm3 (4.0-10.0)
[2019-06-13 19:15] LABS: ALBUMIN 4.1 g/dl (3.4-5.0); BILIRUBIN,TOTAL 0.4 mg/dL (0.2-1); BLOOD UREA NITROGEN 18.2 mg/dL (7-18); CALCIUM 9.2 mg/dL (8.5-10.1); CREATININE 0.7 mg/dL (0.55-1.3); POTASSIUM 4.6 mmol/L (3.5-5.1); TOT PROT 7.2 g/dl (6.4-8.2)
[2019-06-13 19:55] LABS: PLATELET ESTIMATE NORMAL
--- NOTE | 2019-06-13 20:15 | PDOC ---
*Physical Exam - Vital Signs Last Vital Signs Temp Pulse Resp BP Pulse Ox 98.0 F 66 16 103/68 99 06/13/19 18:56 06/13/19 18:56 06/13/19 16:18 06/13/19 18:56 06/13/19 18:56 ED Treatment Course - LABORATORY CBC & Chemistry Diagram: 06/13/19 18:33 06/13/19 18:33 - ADDITIONAL ORDERS Additional order review: Laboratory Results 06/13/19 18:33 Sodium 140 Potassium 4.6 Chloride 106 Carbon Dioxide 29 Anion Gap 5 L BUN 18.2 H Creatinine 0.7 Est GFR (CKD-EPI)AfAm 117.09 Est GFR (CKD-EPI)NonAf 101.02 Random Glucose 83 Calcium 9.2 Total Bilirubin 0.4 AST 21 ALT 23 Alkaline Phosphatase 82 Total Protein 7.2 Albumin 4.1 Lipase 1108 H 06/13/19 18:33 RBC 4.85 MCV 82.6 MCHC 32.4 RDW 16.6 H MPV 8.8 Neutrophils % 81.9 Lymphocytes % 10.8 Monocytes % 5.3 Eosinophils % 1.5 D Basophils % 0.5 - Medications Given in the ED: ED Medications Discontinued Medications Generic Name Dose Route Start Last Admin Trade Name Freq PRN Reason Stop Dose Admin Famotidine/Sodium Chloride 20 mg in 50 mls @ 100 mls/hr 06/13/19 17:27 18:35 Pepcid 20 Mg Premixed Ivpb - IVPB 06/13/19 17:56 100 mls/hr ONCE ONE Administration Sodium Chloride 1,000 mls @ 1,000 mls/hr 06/13/19 17:27 06/13/19 18:35 Normal Saline - IV 06/13/19 18:26 1,000 mls/hr ASDIR STA Administration Medical Decision Making - Medical Decision Making 06/13/19 20:14 Pt signed out to me; comes with epigastric pain; she has pancreatitis. She will be kept NPO and she will be admitted to the hospitalist. 06/13/19 20:56 Patient Name: WERNER RAMÍREZ THIS IS A PRELIMINARY REPORT FROM [facility] DATE OF SERVICE: 2019-06-13 19:31:38 IMAGES: 61 EXAM: ABDOMEN US -LIMITED HISTORY: Evaluate for retained biliary stone. Epigastric pain status post cholecystectomy January 2019. Questionable second gallbladder. COMPARISON: None. FINDINGS: The patient is reportedly status post cholecystectomy. Cystic collection is seen in the expected location of the gallbladder fossa. No appreciable stones. Common bile duct measures 6 mm. No intrahepatic ductal dilatation. Right renal cyst noted. IMPRESSION: Status post cholecystectomy with fluid collection in the gallbladder fossa. Consider MRCP and/or nuclear medicine hepatobiliary scan for futther evaluation. 06/13/19 20:57 Hospitalist team accepted the patient. *DC/Admit/Observation/Transfer Diagnosis at time of Disposition: Epigastric pain, Pancreatitis - Discharge Dispostion Condition at time of disposition: Guarded Decision to Admit order: Yes - Referrals Referrals: Vicki Wild MD [Primary Care Provider] - - Patient Instructions - Post Discharge Activity
[2019-06-13] MEDS ORDERED: SODIUM CHLORIDE 0.9% 500 ML INFUS.BAG IV ONE (20:33)
[2019-06-13] MEDS ORDERED: ENOXAPARIN NA (PORCINE) 40 MG/0.4 ML DISP.SYRIN SQ ONE (20:59)
[2019-06-13] MEDS ORDERED: LACTATED RINGERS SOLUTION 1,000 ML/1,000 ML INFUS.BAG IV SCH (21:00)
[2019-06-13] MEDS: ENOXAPARIN NA (PORCINE) 40 MG/0.4 ML DISP.SYRIN SQ SCH (21:10)
[2019-06-13] MEDS ORDERED: ACETAMINOPHEN 325 MG TABLET (FP) PO PRN (21:43)
[2019-06-13] MEDS ORDERED: ACETAMINOPHEN 1000 MG/100 ML VIAL (NON FORMULARY) IVPB PRN (21:45)
[2019-06-13 21:49] LABS: AMYLASE 100 U/L (25-115); TRIGLYCERIDES 62 mg/dL (0-150)
[2019-06-13] MEDS ORDERED: diazePAM 2 MG TABLET PO ONE (22:09)
[2019-06-14] MEDS ORDERED: LACTATED RINGERS SOLUTION 1,000 ML/1,000 ML INFUS.BAG IV SCH (01:46)
[2019-06-14 01:47] LABS: HYALINE CASTS 1 /lpf (0-8); URINE APPEARANCE CLEAR; URINE BACTERIA 8.5 /hpf (NEGATIVE); URINE BILIRUBIN NEGATIVE (NEGATIVE); URINE COLOR YELLOW; URINE GLUCOSE (UA) NEGATIVE (NEGATIVE); URINE KETONE NEGATIVE (NEGATIVE); URINE LEUK ESTERASE TRACE (NEGATIVE); URINE NITRITE NEGATIVE (NEGATIVE); URINE PROTEIN NEGATIVE (NEGATIVE); URINE RBC 1 /hpf (0-4); URINE UROBILINOGEN 0.2 mg/dL (0.2-1.0); URINE WBC 6 /hpf (0-5)
--- NOTE | 2019-06-14 01:54 | PN ---
Teaching Attending Note Name of Resident: David Tinoco ATTENDING PHYSICIAN STATEMENT I saw and evaluated the patient. I reviewed the resident's note and discussed the case with the resident. I agree with the resident's findings and plan as documented. Seen and examined; please refer to resident note for further historical information. Briefly, patient is a 49 y/o female with a PMH as documented presenting to the ER found to have elevated lipase sspicios for pancreatitis; it is only slightly <3x upper limit of normal, prelim CT report doesn't comment on any abnormality with the pancreas. US/CT shows another fossa around the area of the cholecystectomy; surgcal report from Dr. Calderón reviewed; may require referral t tertiary center for removal. At the time I reassessed her she is asymptomatic on the floor, actually stating she is hungry and she wants a diet. VS, labs, imaging reviewed NAD, AAO, resting in bed NC AT EOMI PERRLA RRR s1/2 no mgr Tender, ND, +BS; on reassessment not tender CN2-12 wnl, no fnd EKG reviewed CT reviewed prelim; agrees with US and shows renal cyst and ovarian cyst; pelvic US pending US abd prelim shows structure in GB fossa 4x1.7 potentially representing GB vs. cystic duct; s/p dario ASSESSMENT AND PLAN: Patient presents to the ER with abdominal pain found to have elevated lipase and fluid filled structure in GB fossa; sgy and GI consulted. # R/o choledochocyst/accessory GB/Pancreatitis 2/2 above -Followup final imagng reports; PRN pain meds, isotonic fluids. NPO and FU surgical and GI consultations. -MRCP done as OP; obtain results. I called [facility] and couldn't obtain; consider obtaining our own study if this can't be obtained. -Followup subspecialty consults *She is stable to keep inpatient for now; will urgently call subspecialties if she decompensates. May benefit from XF to hepatobiliary service at tertiary center.
[2019-06-14 01:55] VITALS: BMI 27.4
--- NOTE | 2019-06-14 06:33 | HP ---
CHIEF COMPLAINT: epigastric pain PCP: Dr. Blanton HISTORY OF PRESENT ILLNESS: This is a 49 y/o F with a PMH of RA (on naproxen), HLD (on statin), GERD (on pantoprazole), who presented c/o 25 minutes of 10/10 dull ->sharp RUQ abdominal pain that occured while she was shopping earlier this afternoon and she felt like "I was gonna pass out". She denies any pain at the time she came to ED and is currently pain free. She endorsed to having a cholecystectomy back in 01/20, and an MRCP 3 wks ago. She states the pain feels the same way it felt before she had a gall bladder removed. She had accompanied nausea, dry heave, chills but no vomiting, diarhea , or chest pain/sob. She denies any sick contacts or recent travel. ER course was notable for: (1) EKG normal sinus rythym (2) CT abd/pelvis done, lipase 1108, amylase 100 (3) Recent Travel: none PAST MEDICAL HISTORY: see in HPI PAST SURGICAL HISTORY: Cholecystectomy, AVM repair for SAH (1988), c section. Social History: Smoking: never Alcohol: occasional Drugs: never Family History: noncontributory Allergies No Known Allergies Allergy (Verified 06/13/19 16:21) HOME MEDICATIONS: Home Medications Medication Instructions Recorded Aspirin 81 mg PO DAILY 03/09/18 Atorvastatin Ca [Lipitor] 10 mg PO HS 03/09/18 Naproxen 500 mg PO BID 01/04/19 Pantoprazole Sodium 40 mg PO DAILY 01/04/19 REVIEW OF SYSTEMS Negative except above PHYSICAL EXAMINATION Vital Signs - 24 hr 06/13/19 06/13/19 06/13/19 16:18 18:56 23:19 Temperature 98.5 F 98.0 F 98.1 F Pulse Rate 75 Pulse Rate [ 66 92 H Right Radial] Respiratory 16 18 Rate Blood Pressure 102/62 Blood Pressure 103/68 126/84 [Right Arm] O2 Sat by Pulse 100 99 98 Oximetry (%) 06/13/19 06/14/19 06/14/19 23:21 01:00 01:52 Temperature 98 F 98 F Pulse Rate 79 79 Pulse Rate [ Right Radial] Respiratory 20 20 Rate Blood Pressure 107/66 107/66 Blood Pressure [Right Arm] O2 Sat by Pulse 98 Oximetry (%) 06/14/19 02:01 Temperature Pulse Rate Pulse Rate [ Right Radial] Respiratory 20 Rate Blood Pressure Blood Pressure [Right Arm] O2 Sat by Pulse 98 Oximetry (%) GENERAL: Awake, alert, and fully oriented, in no acute distress. HEAD: Normal with no signs of trauma. NECK: Normal range of motion, supple . LUNGS: Breath sounds equal, clear to auscultation bilaterally. No wheezes, and no crackles. No accessory muscle use. HEART: Regular rate and rhythm, normal S1 and S2 without murmur, rub or gallop. ABDOMEN: Soft, nontender at the moment, pain prior to coming to ED, non- distended, normoactive bowel sounds, no guarding, no rebound, no masses. LOWER EXTREMITIES: 2+ pulses, warm, well-perfused. No calf tenderness. No peripheral edema. PSYCHIATRIC: Cooperative. Good eye contact. Appropriate mood and affect. SKIN: Warm, dry, no rashes or lesions noted. Laboratory Results - last 24 hr 06/13/19 06/13/19 06/13/19 18:33 18:33 21:00 WBC 12.7 H RBC 4.85 Hgb 13.0 Hct 40.1 D MCV 82.6 MCH 26.8 MCHC 32.4 RDW 16.6 H Plt Count 244 MPV 8.8 Absolute Neuts (auto) 10.4 H Neutrophils % 81.9 Neutrophils % (Manual) 87.0 H Lymphocytes % 10.8 Lymphocytes % (Manual) 7.0 L Monocytes % 5.3 Monocytes % (Manual) 3 L Eosinophils % 1.5 D Eosinophils % (Manual) 3.0 Basophils % 0.5 Nucleated RBC % 0 Platelet Estimate Normal Platelet Comment No clumping noted Sodium 140 Potassium 4.6 Chloride 106 Carbon Dioxide 29 Anion Gap 5 L BUN 18.2 H Creatinine 0.7 Est GFR (CKD-EPI)AfAm 117.09 Est GFR (CKD-EPI)NonAf 101.02 Random Glucose 83 Calcium 9.2 Total Bilirubin 0.4 AST 21 ALT 23 Alkaline Phosphatase 82 Troponin I < 0.02 Total Protein 7.2 Albumin 4.1 Triglycerides 62 Total Amylase 100 Lipase 1108 H Urine Color Urine Appearance Urine pH Ur Specific [place] Urine Protein Urine Glucose (UA) Urine Ketones Urine Blood Urine Nitrite Urine Bilirubin Urine Urobilinogen Ur Leukocyte Esterase Urine WBC (Auto) Urine RBC (Auto) Urine Casts (Auto) U Epithel Cells (Auto) Urine Bacteria (Auto) Urine HCG, Qual 06/13/19 06/13/19 23:30 23:30 WBC RBC Hgb Hct MCV MCH MCHC RDW Plt Count MPV Absolute Neuts (auto) Neutrophils % Neutrophils % (Manual) Lymphocytes % Lymphocytes % (Manual) Monocytes % Monocytes % (Manual) Eosinophils % Eosinophils % (Manual) Basophils % Nucleated RBC % Platelet Estimate Platelet Comment Sodium Potassium Chloride Carbon Dioxide Anion Gap BUN Creatinine Est GFR (CKD-EPI)AfAm Est GFR (CKD-EPI)NonAf Random Glucose Calcium Total Bilirubin AST ALT Alkaline Phosphatase Troponin I Total Protein Albumin Triglycerides Total Amylase Lipase Urine Color Yellow Urine Appearance Clear Urine pH 7.0 Ur Specific [place] 1.005 L Urine Protein Negative Urine Glucose (UA) Negative Urine Ketones Negative Urine Blood Negative Urine Nitrite Negative Urine Bilirubin Negative Urine Urobilinogen 0.2 Ur Leukocyte Esterase Trace Urine WBC (Auto) 6 Urine RBC (Auto) 1 Urine Casts (Auto) 1 U Epithel Cells (Auto) 3.0 Urine Bacteria (Auto) 8.5 Urine HCG, Qual Negative ASSESSMENT/PLAN: Images: EKG reviewed CT reviewed prelim; agrees with US and shows renal cyst and ovarian cyst; pelvic US pending US Adbomen: shows cystic collection in GB fossa 4 x 1.7 potentially representing GB vs. cystic duct collection s/p cholecystectomy. This is a 49 y/o F with a PMH of RA, HLD, GERD s/p cholecystectomy presents to the ER with abdominal pain found to have elevated lipase and fluid filled structure in GB fossa; sgy and GI consulted. # R/o choledochocyst/accessory GB/Pancreatitis 2/2 above - F/u final imagng reports; - PRN pain meds, IV LR. - advance to clear liquids -MRCP done as OP 3 wks ago showing duplicate GB or choledochal cyst. Consider obtaining our own study if this can't be obtained. - most likely passed biliary stone, now resolved plan for further evaluation with MRCP and most likely ERCP. Dr. Calderón- has agreed that transfer to tertiary care center is the right thing to do. This is a possible choledochal cyst vs. wide cystic duct remnant with choledocholithiasis. - mild pancreatitis resolving - repeat MRCP - possible transfer to [facility] for further management, pt is accepted at [facility] hepatobiliary service Dr Izaguirre consulted: MRCP stat will be performed if the situation arises. Anticipate transfer to [facility] for removal of choledochal cyst or duplicate GB. #GERD - pantoprazole #HLD - statin - ASA #RA - c/w naproxen #FEN - will start on clear liquid diet, monitor lytes, IV LR HLD/ RA/ will C/W home medication she should be on aspirin and statin considering the increased CVD risk in RA patient. Visit type - Emergency Visit Emergency Visit: Yes ED Registration Date: 06/13/19 Care time: The patient presented to the Emergency Department on the above date and was hospitalized for further evaluation of their emergent condition. - New Patient This patient is new to me today: Yes Date on this admission: 06/14/19 - Critical Care Critical Care patient: No ATTENDING PHYSICIAN STATEMENT I saw and evaluated the patient. I reviewed the resident's note and discussed the case with the resident. I agree with the resident's findings and plan as documented. SUBJECTIVE: OBJECTIVE: ASSESSMENT AND PLAN:
[2019-06-14 09:10] LABS: BASO % 1.2 % (0-2.0); EOS % 4.1 % (0-4.5); HEMATOCRIT 33.4 % (32.4-45.2); HEMOGLOBIN 11.3 GM/dL (10.7-15.3); LYMPH % 28.1 % (8-40); MCH 27.8 pg (25.7-33.7); MCHC 33.8 g/dl (32.0-36.0); MEAN CELL VOLUME 82.2 fl (80-96); MEAN PLT VOLUME 8.5 fl (7.5-11.1); MONO % 7.8 % (3.8-10.2); NEUT % 58.8 % (42.8-82.8); PLATELET COUNT 199 K/MM3 (134-434); RBC 4.06 M/mm3 (3.60-5.2); RDW 16.4 % (11.6-15.6); WHITE BLOOD COUNT 5.1 K/mm3 (4.0-10.0)
[2019-06-14 09:41] LABS: ALBUMIN 3.2 g/dl (3.4-5.0); BILIRUBIN,TOTAL 0.6 mg/dL (0.2-1); BLOOD UREA NITROGEN 10.8 mg/dL (7-18); CALCIUM 8.5 mg/dL (8.5-10.1); CREATININE 0.6 mg/dL (0.55-1.3); POTASSIUM 4.3 mmol/L (3.5-5.1); TOT PROT 5.9 g/dl (6.4-8.2)
--- NOTE | 2019-06-14 09:58 | HP ---
CHIEF COMPLAINT: PCP: HISTORY OF PRESENT ILLNESS: ER course was notable for: (1) (2) (3) Recent Travel: PAST MEDICAL HISTORY: PAST SURGICAL HISTORY: Social History: Smoking: Alcohol: Drugs: Family History: Allergies No Known Allergies Allergy (Verified 06/13/19 16:21) HOME MEDICATIONS: Home Medications Medication Instructions Recorded Aspirin 81 mg PO DAILY 03/09/18 Atorvastatin Ca [Lipitor] 10 mg PO HS 03/09/18 Naproxen 500 mg PO BID 01/04/19 Pantoprazole Sodium 40 mg PO DAILY 01/04/19 REVIEW OF SYSTEMS CONSTITUTIONAL: Absent: fever, chills, diaphoresis, generalized weakness, malaise, loss of appetite, weight change HEENT: Absent: rhinorrhea, nasal congestion, throat pain, throat swelling, difficulty swallowing, mouth swelling, ear pain, eye pain, visual changes CARDIOVASCULAR: Absent: chest pain, syncope, palpitations, irregular heart rate, lightheadedness , peripheral edema RESPIRATORY: Absent: cough, shortness of breath, dyspnea with exertion, orthopnea, wheezing, stridor, hemoptysis GASTROINTESTINAL: Absent: abdominal pain, abdominal distension, nausea, vomiting, diarrhea, constipation, melena, hematochezia GENITOURINARY: Absent: dysuria, frequency, urgency, hesitancy, hematuria, flank pain, genital pain MUSCULOSKELETAL: Absent: myalgia, arthralgia, joint swelling, back pain, neck pain SKIN: Absent: rash, itching, pallor HEMATOLOGIC/IMMUNOLOGIC: Absent: easy bleeding, easy bruising, lymphadenopathy, frequent infections ENDOCRINE: Absent: unexplained weight gain, unexplained weight loss, heat intolerance, cold intolerance NEUROLOGIC: Absent: headache, focal weakness or paresthesias, dizziness, unsteady gait, seizure, mental status changes, bladder or bowel incontinence PSYCHIATRIC: Absent: anxiety, depression, suicidal or homicidal ideation, hallucinations. PHYSICAL EXAMINATION Vital Signs - 24 hr 06/13/19 06/13/19 06/13/19 16:18 18:56 23:19 Temperature 98.5 F 98.0 F 98.1 F Pulse Rate 75 Pulse Rate [ 66 92 H Right Radial] Respiratory 16 18 Rate Blood Pressure 102/62 Blood Pressure 103/68 126/84 [Right Arm] O2 Sat by Pulse 100 99 98 Oximetry (%) 06/13/19 06/14/19 06/14/19 23:21 01:00 01:52 Temperature 98 F 98 F Pulse Rate 79 79 Pulse Rate [ Right Radial] Respiratory 20 20 Rate Blood Pressure 107/66 107/66 Blood Pressure [Right Arm] O2 Sat by Pulse 98 Oximetry (%) 06/14/19 02:01 Temperature Pulse Rate Pulse Rate [ Right Radial] Respiratory 20 Rate Blood Pressure Blood Pressure [Right Arm] O2 Sat by Pulse 98 Oximetry (%) GENERAL: Awake, alert, and fully oriented, in no acute distress. HEAD: Normal with no signs of trauma. EYES: Pupils equal, round and reactive to light, extraocular movements intact, sclera anicteric, conjunctiva clear. No lid lag. EARS, NOSE, THROAT: Ears normal, nares patent, oropharynx clear without exudates. Moist mucous membranes. NECK: Normal range of motion, supple without lymphadenopathy, JVD, or masses. LUNGS: Breath sounds equal, clear to auscultation bilaterally. No wheezes, and no crackles. No accessory muscle use. HEART: Regular rate and rhythm, normal S1 and S2 without murmur, rub or gallop. ABDOMEN: Soft, nontender, not distended, normoactive bowel sounds, no guarding, no rebound, no masses. No hepatomegaly or splenomegaly. MUSCULOSKELETAL: Normal range of motion at all joints. No bony deformities or tenderness. No CVA tenderness. UPPER EXTREMITIES: 2+ pulses, warm, well-perfused. No cyanosis. No clubbing. No peripheral edema. LOWER EXTREMITIES: 2+ pulses, warm, well-perfused. No calf tenderness. No peripheral edema. NEUROLOGICAL: Cranial nerves II-XII intact. Normal speech. Normal gait. PSYCHIATRIC: Cooperative. Good eye contact. Appropriate mood and affect. SKIN: Warm, dry, normal turgor, no rashes or lesions noted, normal capillary refill. Laboratory Results - last 24 hr 06/13/19 06/13/19 06/13/19 18:33 18:33 21:00 WBC 12.7 H RBC 4.85 Hgb 13.0 Hct 40.1 D MCV 82.6 MCH 26.8 MCHC 32.4 RDW 16.6 H Plt Count 244 MPV 8.8 Absolute Neuts (auto) 10.4 H Neutrophils % 81.9 Neutrophils % (Manual) 87.0 H Lymphocytes % 10.8 Lymphocytes % (Manual) 7.0 L Monocytes % 5.3 Monocytes % (Manual) 3 L Eosinophils % 1.5 D Eosinophils % (Manual) 3.0 Basophils % 0.5 Nucleated RBC % 0 Platelet Estimate Normal Platelet Comment No clumping noted Sodium 140 Potassium 4.6 Chloride 106 Carbon Dioxide 29 Anion Gap 5 L BUN 18.2 H Creatinine 0.7 Est GFR (CKD-EPI)AfAm 117.09 Est GFR (CKD-EPI)NonAf 101.02 Random Glucose 83 Calcium 9.2 Total Bilirubin 0.4 AST 21 ALT 23 Alkaline Phosphatase 82 Troponin I < 0.02 Total Protein 7.2 Albumin 4.1 Triglycerides 62 Total Amylase 100 Lipase 1108 H Urine Color Urine Appearance Urine pH Ur Specific [place] Urine Protein Urine Glucose (UA) Urine Ketones Urine Blood Urine Nitrite Urine Bilirubin Urine Urobilinogen Ur Leukocyte Esterase Urine WBC (Auto) Urine RBC (Auto) Urine Casts (Auto) U Epithel Cells (Auto) Urine Bacteria (Auto) Urine HCG, Qual 06/13/19 06/13/19 06/14/19 23:30 23:30 08:35 WBC 5.1 RBC 4.06 Hgb 11.3 Hct 33.4 D MCV 82.2 MCH 27.8 MCHC 33.8 RDW 16.4 H Plt Count 199 MPV 8.5 Absolute Neuts (auto) 3.0 Neutrophils % 58.8 D Neutrophils % (Manual) Lymphocytes % 28.1 D Lymphocytes % (Manual) Monocytes % 7.8 Monocytes % (Manual) Eosinophils % 4.1 D Eosinophils % (Manual) Basophils % 1.2 Nucleated RBC % 0 Platelet Estimate Platelet Comment Sodium Potassium Chloride Carbon Dioxide Anion Gap BUN Creatinine Est GFR (CKD-EPI)AfAm Est GFR (CKD-EPI)NonAf Random Glucose Calcium Total Bilirubin AST ALT Alkaline Phosphatase Troponin I Total Protein Albumin Triglycerides Total Amylase Lipase Urine Color Yellow Urine Appearance Clear Urine pH 7.0 Ur Specific [place] 1.005 L Urine Protein Negative Urine Glucose (UA) Negative Urine Ketones Negative Urine Blood Negative Urine Nitrite Negative Urine Bilirubin Negative Urine Urobilinogen 0.2 Ur Leukocyte Esterase Trace Urine WBC (Auto) 6 Urine RBC (Auto) 1 Urine Casts (Auto) 1 U Epithel Cells (Auto) 3.0 Urine Bacteria (Auto) 8.5 Urine HCG, Qual Negative 06/14/19 08:35 WBC RBC Hgb Hct MCV MCH MCHC RDW Plt Count MPV Absolute Neuts (auto) Neutrophils % Neutrophils % (Manual) Lymphocytes % Lymphocytes % (Manual) Monocytes % Monocytes % (Manual) Eosinophils % Eosinophils % (Manual) Basophils % Nucleated RBC % Platelet Estimate Platelet Comment Sodium 144 Potassium 4.3 Chloride 111 H Carbon Dioxide 29 Anion Gap 5 L BUN 10.8 Creatinine 0.6 Est GFR (CKD-EPI)AfAm 123.18 Est GFR (CKD-EPI)NonAf 106.28 Random Glucose 80 Calcium 8.5 Total Bilirubin 0.6 AST 15 ALT 19 Alkaline Phosphatase 69 Troponin I Total Protein 5.9 L Albumin 3.2 L Triglycerides Total Amylase Lipase Urine Color Urine Appearance Urine pH Ur Specific [place] Urine Protein Urine Glucose (UA) Urine Ketones Urine Blood Urine Nitrite Urine Bilirubin Urine Urobilinogen Ur Leukocyte Esterase Urine WBC (Auto) Urine RBC (Auto) Urine Casts (Auto) U Epithel Cells (Auto) Urine Bacteria (Auto) Urine HCG, Qual ASSESSMENT/PLAN: The patient is a 49 year old female with a past medical history of HLD, rheumatoid arthritis, subarachnoid hemorrhage due to AVM (surgery in 1988 and residual left sided weakness and left hand contracture), GERD, hemorrhoids, and cholecystectomy (01/20) here today for evaluation of epigastric pain. The patient reports that approximately 3 hours ago she developed sudden epigastric pain that lasted for 30 minutes with associated nausea, cold sweats, and a feeling like she was going to pass out. Patient notes that she is currently being worked up by her surgeon Dr. Ricardo Caruso for a possible second gallbladder (patient had an MRI 3 weeks ago). Patient currently has no symptoms. she is s/p lap dario in January 2019.
[2019-06-14] MEDS: ENOXAPARIN NA (PORCINE) 40 MG/0.4 ML DISP.SYRIN SQ SCH (11:54)
--- NOTE | 2019-06-14 13:11 | CON.GI ---
Consult Consult Specialty:: Gastroenterology ( covering the [facility] service) Referred by:: Dr Xavier Reason for Consultation:: abdominal pain - History of Present Illness Chief Complaint: severe epigastric pain History of Present Illness: 49F developed severe epigastric pain with chills and diaphoresis yesterday. It lasted about 20 minutes and then spontaneously subsided. It has not recurred. Her lipase is elevated but she is pain free and the CT does not reveal pancreatic inflammation. Her LFTs are also normal. She had biliary pancreatitis - Past Medical History Hepatobiliary: Yes: Cholelithiasis ...LMP: 03/04/17 Rheumatology: Yes: Rheumatoid Arthritis - Alcohol/Substance Use Hx Alcohol Use: Yes - Smoking History Smoking history: Never smoked Have you smoked in the past 12 months: No Home Medications - Allergies Allergies/Adverse Reactions: Allergies Allergy/AdvReac Type Severity Reaction Status Date / Time No Known Allergies Allergy Verified 06/13/19 16:21 - Home Medications Home Medications: Ambulatory Orders Aspirin 81 mg PO DAILY 03/09/18 Atorvastatin Ca [Lipitor] 10 mg PO HS 03/09/18 Naproxen 500 mg PO BID 01/04/19 Pantoprazole Sodium 40 mg PO DAILY 01/04/19 Physical Exam-GI Vital Signs: Vital Signs Temperature 98 F 06/14/19 01:52 Pulse Rate 79 06/14/19 01:52 Respiratory Rate 20 06/14/19 02:01 Blood Pressure 107/66 06/14/19 01:52 O2 Sat by Pulse Oximetry (%) 98 06/14/19 02:01 Labs: CBC, BMP 06/14/19 08:35 06/14/19 08:35
--- NOTE | 2019-06-14 13:27 | PN ---
Progress Note (short form) - Note Progress Note: Evaluated the patient this morning, she states that she has had no more pain after that one episode of 10 min of severe pain, and is hungry at this time. PhEX:. Last Vital Signs Temp Pulse Resp BP Pulse Ox 98 F 79 20 107/66 98 06/14/19 01:52 06/14/19 01:52 06/14/19 02:01 06/14/19 01:52 06/14/19 02:01 middle age F in no distress, walking around MMM No ocular discharge No nasal discharge CVS:S1S2 CTAB Abd:BS+ soft, NT/ND EXT: 2+ DP pulses B/L equal LABS: CBCD WBC 5.1 K/mm3 (4.0-10.0) 06/14/19 08:35 RBC 4.06 M/mm3 (3.60-5.2) 06/14/19 08:35 Hgb 11.3 GM/dL (10.7-15.3) 06/14/19 08:35 Hct 33.4 % (32.4-45.2) D 06/14/19 08:35 MCV 82.2 fl (80-96) 06/14/19 08:35 MCHC 33.8 g/dl (32.0-36.0) 06/14/19 08:35 RDW 16.4 % (11.6-15.6) H 06/14/19 08:35 Plt Count 199 K/MM3 (134-434) 06/14/19 08:35 MPV 8.5 fl (7.5-11.1) 06/14/19 08:35 CMP Sodium 144 mmol/L (136-145) 06/14/19 08:35 Potassium 4.3 mmol/L (3.5-5.1) 06/14/19 08:35 Chloride 111 mmol/L (98-107) H 06/14/19 08:35 Carbon Dioxide 29 mmol/L (21-32) 06/14/19 08:35 Anion Gap 5 MMOL/L (8-16) L 06/14/19 08:35 BUN 10.8 mg/dL (7-18) 06/14/19 08:35 Creatinine 0.6 mg/dL (0.55-1.3) 06/14/19 08:35 Random Glucose 80 mg/dL (74-106) 06/14/19 08:35 Calcium 8.5 mg/dL (8.5-10.1) 06/14/19 08:35 Total Bilirubin 0.6 mg/dL (0.2-1) 06/14/19 08:35 AST 15 U/L (15-37) 06/14/19 08:35 ALT 19 U/L (13-61) 06/14/19 08:35 Alkaline Phosphatase 69 U/L (45-117) 06/14/19 08:35 Total Protein 5.9 g/dl (6.4-8.2) L 06/14/19 08:35 Albumin 3.2 g/dl (3.4-5.0) L 06/14/19 08:35 CARDIAC ENZYMES Troponin I < 0.02 ng/ml (0.00-0.05) 06/13/19 21:00 A&P: 49 year old female W cholecystectomy (01/20),HLD, rheumatoid arthritis, subarachnoid hemorrhage due to AVM (surgery in 1988 and residual left sided weakness and left hand contracture), GERD, hemorrhoids, P/W sudden onset of severe abdominal pain lasting for 10 minutes which resolved and no F/u pain, no leukocytosis, was evaluated by GI and Surgery about john get MRCP today for further planning for most likely ERCP. Abdomianl pain : most likely passed biliary stone, now resoledv paln for further evaluation with MRCP and most likely ERCP. Diet: will start on clear liquid diet at this time HLD/ RA/ will C/W home medication she should be on aspirin and statin considering the increased CVD risk in RA patient. FC Diet: celar liquid DVT ppx: HEPARIN Visit type - Emergency Visit Emergency Visit: Yes ED Registration Date: 06/13/19 Care time: The patient presented to the Emergency Department on the above date and was hospitalized for further evaluation of their emergent condition. - New Patient This patient is new to me today: Yes Date on this admission: 06/14/19 - Critical Care Critical Care patient: No - Discharge Referral Referred to [facility] No
[2019-06-14] MEDS ORDERED: LORazepam 2 MG/ML SDV VIAL IVPUSH ONE (13:28)
--- NOTE | 2019-06-14 14:06 | CONSULT ---
Consult Consult Specialty:: Surgery Reason for Consultation:: pancreatitis - History of Present Illness Chief Complaint: abdominal pain History of Present Illness: 49 y.o. female s/p laparoscopic cholecystectomy in January 2019 for acute cholecystitis. Patient had a wide cystic duct and questionable choledochal cyst on HIDA scan. Was d/c with plans for EUS referral to tertiary care center for further mgt. Currently no longer in pain. 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 - History Source History Provided By: Patient Limitations to Obtaining History: No Limitations - Past Medical History Hepatobiliary: Yes: Cholelithiasis ...LMP: 03/04/17 Rheumatology: Yes: Rheumatoid Arthritis - Alcohol/Substance Use Hx Alcohol Use: Yes - Smoking History Smoking history: Never smoked Have you smoked in the past 12 months: No Home Medications - Allergies Allergies/Adverse Reactions: Allergies Allergy/AdvReac Type Severity Reaction Status Date / Time No Known Allergies Allergy Verified 06/13/19 16:21 - Home Medications Home Medications: Ambulatory Orders Aspirin 81 mg PO DAILY 03/09/18 Atorvastatin Ca [Lipitor] 10 mg PO HS 03/09/18 Naproxen 500 mg PO BID 01/04/19 Pantoprazole Sodium 40 mg PO DAILY 01/04/19 Physical Exam Vital Signs: Vital Signs Temperature 98 F 06/14/19 01:52 Pulse Rate 79 06/14/19 01:52 Respiratory Rate 20 06/14/19 02:01 Blood Pressure 107/66 06/14/19 01:52 O2 Sat by Pulse Oximetry (%) 98 06/14/19 02:01 Constitutional: Yes: Well Nourished Eyes: Yes: Conjunctiva Clear HENT: Yes: Normocephalic Neck: Yes: Supple Cardiovascular: Yes: Regular Rate and Rhythm Respiratory: Yes: CTA Bilaterally Gastrointestinal: Yes: Normal Bowel Sounds, Soft ...Rectal Exam: Yes: Deferred Neurological: Yes: Alert, Oriented Labs: CBC, BMP 06/14/19 08:35 06/14/19 08:35 Imaging - Results Cat Scan: Report Reviewed, Image Reviewed Ultrasound: Report Reviewed, Image Reviewed Problem List - Problems (1) Pancreatitis Assessment/Plan: possible choledochal cyst vs. wide cystic duct remnant with choledocholithiasis mild pancreatitis resolving repeat MRCP possible transfer to [facility] for further management = accepted at [facility] hepatobiliary service Code(s): K85.90 - ACUTE PANCREATITIS WITHOUT NECROSIS OR INFECTION, UNSP
--- NOTE | 2019-06-14 14:20 | EKG ---
Test Reason : Blood Pressure : / mmHG Vent. Rate : 066 BPM Atrial Rate : 066 BPM P-R Int : 142 ms QRS Dur : 076 ms QT Int : 420 ms P-R-T Axes : 023 017 018 degrees QTc Int : 440 ms NORMAL SINUS RHYTHM NORMAL ECG WHEN COMPARED WITH ECG OF 08-JAN-2019 14:11, NO SIGNIFICANT CHANGE WAS FOUND Confirmed by MD Davis Daniel ([id number]) on 06/14/2019 2:20:07 PM Referred By: Confirmed By:Daniel Davis MD
--- NOTE | 2019-06-14 14:29 | CON.GI ---
Consult Consult Specialty:: Gastroenterology ( covering the [facility] GI service) Referred by:: Nile Xavier MD Reason for Consultation:: abdominal pain - History of Present Illness Chief Complaint: sudden onset severe epigastric pain lasting 20 minutes History of Present Illness: 49F developed severe epigastric pain with chills and diaphoresis yesterday. It lasted about 20 minutes and then spontaneously subsided. It has not recurred. Her lipase is elevated but she is pain free and the CT does not reveal pancreatic inflammation. Her LFTs are also normal. She had biliary pancreatitis in 01/[address] Calderón performed a cholecystectomy. He referred her to [facility] for further biliary tract evaluation but she instead saw Dr Duffy at [facility] who referred her to a surgeon. The surgeon obtained an MRCP after which he told her that she had a 2nd gallbladder with residual stones. Dr Calderón contacted [facility] and [facility] me that [facility] MRCP revealed a choledochal cyst and stones. Heidy and CT here suggest at large cystic duct remnant and posi - History Source History Provided By: Patient Limitations to Obtaining History: No Limitations - Past Medical History Cardio/Vascular: Yes: Hyperlipdemia Gastrointestinal: Yes: Other (colon polyps removed by Dr. Duffy last year) Hepatobiliary: Yes: Cholelithiasis, Choledocholithiasis, Other (choledochal cyst ) ...LMP: 03/04/17 Rheumatology: Yes: Rheumatoid Arthritis - Past Surgical History Past Surgical History: Yes: Breast Biopsy, Cholecystectomy, Colonoscopy, C- Section - Alcohol/Substance Use Hx Alcohol Use: Yes History of Substance Use: reports: None - Smoking History Smoking history: Never smoked Have you smoked in the past 12 months: No - Social History Usual Living Arrangement: Alone ADL: Independent Occupation: bookeeper [facility] of : [facility] History of Recent Travel: No Home Medications - Allergies Allergies/Adverse Reactions: Allergies Allergy/AdvReac Type Severity Reaction Status Date / Time No Known Allergies Allergy Verified 06/13/19 16:21 - Home Medications Home Medications: Ambulatory Orders Aspirin 81 mg PO DAILY 03/09/18 Atorvastatin Ca [Lipitor] 10 mg PO HS 03/09/18 Naproxen 500 mg PO BID 01/04/19 Pantoprazole Sodium 40 mg PO DAILY 01/04/19 Family Disease History - Family Disease History Family Disease History: CA: Grandparent (colon cancer), Other: Father (unknown) , Mother (HTN,HPL) Review of Systems - Review of Systems Constitutional: reports: Chills, Diaphoresis Eyes: reports: No Symptoms HENT: reports: No Symptoms Neck: reports: No Symptoms Cardiovascular: reports: No Symptoms Respiratory: reports: No Symptoms Gastrointestinal: reports: Abdominal Pain Musculoskeletal: reports: Joint Pain Physical Exam-GI Vital Signs: Vital Signs Temperature 98 F 06/14/19 01:52 Pulse Rate 79 06/14/19 01:52 Respiratory Rate 20 06/14/19 02:01 Blood Pressure 107/66 06/14/19 01:52 O2 Sat by Pulse Oximetry (%) 98 06/14/19 02:01 CBC,CMP WBC 5.1 K/mm3 (4.0-10.0) 06/14/19 08:35 RBC 4.06 M/mm3 (3.60-5.2) 06/14/19 08:35 Hgb 11.3 GM/dL (10.7-15.3) 06/14/19 08:35 Hct 33.4 % (32.4-45.2) D 06/14/19 08:35 MCV 82.2 fl (80-96) 06/14/19 08:35 MCH 27.8 pg (25.7-33.7) 06/14/19 08:35 MCHC 33.8 g/dl (32.0-36.0) 06/14/19 08:35 RDW 16.4 % (11.6-15.6) H 06/14/19 08:35 Plt Count 199 K/MM3 (134-434) 06/14/19 08:35 MPV 8.5 fl (7.5-11.1) 06/14/19 08:35 Absolute Neuts (auto) 3.0 K/mm3 (1.5-8.0) 06/14/19 08:35 Neutrophils % 58.8 % (42.8-82.8) D 06/14/19 08:35 Neutrophils % (Manual) 87.0 % (42.8-82.8) H 06/13/19 18:33 Lymphocytes % 28.1 % (8-40) D 06/14/19 08:35 Lymphocytes % (Manual) 7.0 % (8-40) L 06/13/19 18:33 Monocytes % 7.8 % (3.8-10.2) 06/14/19 08:35 Monocytes % (Manual) 3 % (3.8-10.2) L 06/13/19 18:33 Eosinophils % 4.1 % (0-4.5) D 06/14/19 08:35 Eosinophils % (Manual) 3.0 % (0-4.5) 06/13/19 18:33 Basophils % 1.2 % (0-2.0) 06/14/19 08:35 Nucleated RBC % 0 % (0-0) 06/14/19 08:35 Platelet Estimate Normal 06/13/19 18:33 Platelet Comment No clumping noted 06/13/19 18:33 Sodium 144 mmol/L (136-145) 06/14/19 08:35 Potassium 4.3 mmol/L (3.5-5.1) 06/14/19 08:35 Chloride 111 mmol/L (98-107) H 06/14/19 08:35 Carbon Dioxide 29 mmol/L (21-32) 06/14/19 08:35 Anion Gap 5 MMOL/L (8-16) L 06/14/19 08:35 BUN 10.8 mg/dL (7-18) 06/14/19 08:35 Creatinine 0.6 mg/dL (0.55-1.3) 06/14/19 08:35 Est GFR (CKD-EPI)AfAm 123.18 06/14/19 08:35 Est GFR (CKD-EPI)NonAf 106.28 06/14/19 08:35 Random Glucose 80 mg/dL (74-106) 06/14/19 08:35 Calcium 8.5 mg/dL (8.5-10.1) 06/14/19 08:35 Total Bilirubin 0.6 mg/dL (0.2-1) 06/14/19 08:35 AST 15 U/L (15-37) 06/14/19 08:35 ALT 19 U/L (13-61) 06/14/19 08:35 Alkaline Phosphatase 69 U/L (45-117) 06/14/19 08:35 Troponin I < 0.02 ng/ml (0.00-0.05) 06/13/19 21:00 Total Protein 5.9 g/dl (6.4-8.2) L 06/14/19 08:35 Albumin 3.2 g/dl (3.4-5.0) L 06/14/19 08:35 Triglycerides 62 mg/dL (0-150) 06/13/19 21:00 Total Amylase 100 U/L (25-115) 06/13/19 21:00 Lipase 1108 U/L (73-393) H 06/13/19 18:33 Current Medications Generic Name Dose Route Start Last Admin Trade Name Freq PRN Reason Stop Dose Admin Acetaminophen 650 mg 06/13/19 21:45 Ofirmev Injection - IVPB Q6H PRN PAIN OR FEVER Enoxaparin Sodium 40 mg 06/13/19 20:45 06/14/19 11:54 Lovenox - SQ 40 mg DAILY CHINO Administration Constitutional: Yes: No Distress Eyes: Yes: Conjunctiva Clear HENT: Yes: Atraumatic Neck: Yes: Supple Cardiovascular: Yes: Regular Rate and Rhythm Respiratory: Yes: CTA Bilaterally Gastrointestinal Inspection: Yes: Scars (heaed Pfannensteil and lap choly incisions) ...Auscultate: Yes: Normoactive Bowel Sounds ...Palpate: Yes: Soft, Other (nontender) ...Rectal Exam: Yes: Deferred Neurological: Yes: Alert, Oriented Labs: CBC, BMP 06/14/19 08:35 06/14/19 08:35 Imaging - Results Cat Scan: Report Reviewed ( Final Report CT ABDOMEN & PELVIS CT W/O CONTR Show Printer-Friendly Version Patient Name: Tamy Ramírez : Apr-1970 ID: [id number] Study Date: 13-Jun-2019 22:34 Brian Jaime Name: TAMY RAMÍREZ DEPARTMENT OF RADIOLOGY Phys: Minnie Gama RESIDENT : 1970 Age: 49 Sex: F [facility] Acct: [id number] Loc: [address] Exam Date: 06/13/19 Status: [place] [address] Unit Number: [id number] EXAM#: TYPE/EXAM: RESULT: [id number] CT/ABDOMEN PELVIS CT W/O CONTR HISTORY PROVIDED: Rule out pancreatitis TECHNIQUE: Sequential axial images were obtained from the domes of the diaphragm through the symphysis pubis. The study is limited without the use of any contrast material. The pancreas is normal in size and texture with no pancreatic masses identified. There are no inflammatory changes or fluid collections about the pancreas suspicious for acute/chronic pancreatitis. The liver, spleen, adrenal glands and kidneys demonstrate no significant abnormalities. There is a 2.5 cm right renal cyst. The patient is S/P cholecystectomy with surgical clips in the gallbladder fossa. There is a small fluid collection about the clips which appears to communicate with the common bile duct and most likely represents a prominent cystic duct remnant. Clinical correlation is advised. There is no evidence of intra-abdominal or retroperitoneal lymphadenopathy or fluid collections. There is no evidence of pneumoperitoneum, bowel obstruction or intra-abdominal abscess. There is no CT evidence of acute appendicitis or diverticulitis. Examination of the pelvis demonstrates a 3.4 cm left ovarian cyst. A follow-up pelvic sonogram may be warranted. There is no evidence of pelvic masses, fluid collections or lymphadenopathy. There is no evidence of acute bony pathology. IMPRESSION: 1. No evidence of pancreatic pathology. Study is limited without the use of intravenous contrast. 2. S/P cholecystectomy with suspected prominent cystic duct remnant. 3. Left ovarian cyst. Pelvic sonographic follow-up recommended. 4. No acute pathology within the abdomen or pelvis. Please see above discussion. Reported By: Franklin Rodríguez MD 06/14/19929 Technologist: Kelvin Canales Transcribed Date/Time: 09/22 Fifth Grade Teacher: Franklin Rodríguez Printed Date/Time: By: Signed by: Franklin Rodríguez Signed on: 14-Jun-2019 09:32) Problem List - Problems (1) Biliary colic Assessment/Plan: Given the abrupt onset and rapid resolution of the severe bout with biliary colic yesterday I believe that Tamy passed one of her CBD stones. She is at risk of repeat episodes until they are extracted. I discussed the potential to develop ascending cholangitis and biliary pancreatitis and therefore the need to deal with this as soon as possible. I have discussed the need for ERCP with sphincterotomy and stone removal or stenting with Tamy in detail I informed her of ths potential for such complications as perforation, hemorrhage and ERCP induced pancreatitis leading to multiorgan failure, Given the potential complexities involed with choledochal cyst anatomy I have advised that she have the procedure done at a tertiary care center. Dr Calderón was involved in this discussion and is making arrangements for transfer to [facility]. I am available to perform an emergency ERCP if the situation arises. Tamy has signed an informed consent. Code(s): K80.50 - CALCULUS OF BILE DUCT W/O CHOLANGITIS OR CHOLECYST W/O OBST (2) Choledocholithiasis Code(s): K80.50 - CALCULUS OF BILE DUCT W/O CHOLANGITIS OR CHOLECYST W/O OBST (3) Choledochal cyst Code(s): Q44.4 - CHOLEDOCHAL CYST (4) Gallstone pancreatitis Code(s): K85.10 - BILIARY ACUTE PANCREATITIS WITHOUT NECROSIS OR INFECTION (5) Rheumatoid arthritis Code(s): M06.9 - RHEUMATOID ARTHRITIS, UNSPECIFIED Qualifiers: Rheumatoid arthritis location: unspecified site Assessment/Plan Assessment: - Given the abrupt onset and rapid resolution of the severe bout with biliary colic yesterday I believe that Tamy passed one of her CBD stones. She is at risk of repeat episodes until they are extracted. I discussed the potential to develop ascending cholangitis and biliary pancreatitis and therefore the need to deal with this as soon as possible. I have discussed the need for ERCP with sphincterotomy and stone removal or stenting with Tamy in detail I informed her of the potential for such complications as perforation, hemorrhage and ERCP induced pancreatitis leading to multiorgan failure, Given the potential complexities involed with choledochal cyst anatomy I have advised that she have the procedure done at a tertiary care center. Dr Calderón was involved in this discussion and is making arrangements for transfer to [facility]. I suspect that she will have a Type IV or V choledochal cyst - Personal h/o colon polyps and FH of GF with colon cancer ad up to date with colonoscopy Plan: -- MRCP stat -- I am available to perform an emergency ERCP if the situation arises. Tamy has signed an informed consent. -- Anticipate transfer to [facility]
[2019-06-14 19:02] VITALS: BP 128/70; PULSE 70; TEMP 97.5
== END 2019-06-14 18:12 | disposition short-term general hospital (02) | DRG 439 ==
LOC: JER 16:10 → SUPCPDRO 16:10 → JERBED 20:59 → J5S 06-14 00:35
PROVIDERS: ADMIT Internal Medicine; ATTEND Internal Medicine
DX: K85.90 Acute pancreatitis without necrosis or infection, unspecified (principal); Q44.4 Choledochal cyst; K85.10 Biliary acute pancreatitis without necrosis or infection; M06.9 Rheumatoid arthritis, unspecified; K80.50 Calculus of bile duct without cholangitis or cholecystitis without obstruction; E78.5 Hyperlipidemia, unspecified; K21.9 Gastro-esophageal reflux disease without esophagitis
CPT/HCPCS: 36415; 74176-TC; 74181-TC; 76705-TC; 80053; 81003; 82150; 83690; 84478; 84484; 84703; 85025; 93005; 93010; 99285-25; J7030

== ENCOUNTER 2019-10-03 00:11 | Emergency (ER) | payer OTHER ==
[2019-10-03 00:27] VITALS: BP 122/82; PULSE 66; TEMP 97.3; BMI 21.4
[2019-10-03] MEDS ORDERED: SODIUM CHLORIDE 0.9% 1000 ML INFUS.BAG IV ONE (00:50)
[2019-10-03] MEDS ORDERED: ONDANSETRON 4 MG/2 ML VIAL IVPUSH ONE (00:50)
[2019-10-03] MEDS ORDERED: FAMOTIDINE 20 MG/50 ML IVPB 20 MG/50 ML MG IVPB ONE ×2 (00:50→03:49)
--- NOTE | 2019-10-03 01:08 | PDOC ---
History of Present Illness - General Chief Complaint: Pain Stated Complaint: RUQ PAIN Time Seen by Provider: 10/03/19 00:43 History Source: Patient Exam Limitations: No Limitations - History of Present Illness Initial Comments: 10/03/19 01:07 49F with a PMH of RA (on naproxen), HLD (on statin), GERD (on pantoprazole) who presents to the ER with complaints of RUQ and epigastric pain. The patient describes a sudden onset, sharp, RUQ pain which initially radiated to her chest but no longer radiates without provocative or alleviating factors. She states she ate a chocolate bar 15 minutes prior to the onset of the abdominal pain. She vomited twice but no longer feels nauseous. She grades the pain as 10/10. The pain is not associated with fever, chills, CP, SOB, current nausea, dysuria , cough, or back pain. Past History - Past Medical History Allergies/Adverse Reactions: Allergies Allergy/AdvReac Type Severity Reaction Status Date / Time No Known Allergies Allergy Verified 10/03/19 00:23 COPD: No GI Disorders: Yes Hypercholesterolemia: Yes Seizures: Yes - Surgical History Cholecystectomy: Yes Neurologic Surgery: Yes (BRAIN in 1988) - Psycho Social/Smoking Cessation Hx Smoking History: Never smoked Have you smoked in the past 12 months: No Information on smoking cessation initiated: No Hx Alcohol Use: No Drug/Substance Use Hx: No Substance Use Type: None Review of Systems - Review of Systems Able to Perform ROS?: Yes Comments:: 10/03/19 01:13 GENERAL/CONSTITUTIONAL: No fever or chills. No weakness. HEAD, EYES, EARS, NOSE AND THROAT: No change in vision. No ear pain or discharge. No sore throat. CARDIOVASCULAR: No chest pain, palpitations, or lightheadedness. RESPIRATORY: No cough, wheezing, shortness of breath, or hemoptysis. GASTROINTESTINAL: + for abdominal pain, nausea, or vomiting. No diarrhea or constipation. GENITOURINARY: No dysuria, frequency, hematuria, or change in urination. MUSCULOSKELETAL: No joint or muscle swelling or pain. No neck or back pain. SKIN: No rash or lesions. NEUROLOGIC: No headache, numbness, tingling, focal weakness, loss of consciousness, or change in strength/sensation. Is the patient limited [place]ian proficient: No *Physical Exam - Vital Signs Last Vital Signs Temp Pulse Resp BP Pulse Ox 97.3 F L 66 20 122/82 100 10/03/19 00:24 10/03/19 00:24 10/03/19 00:24 10/03/19 00:24 10/03/19 00:24 - Physical Exam 10/03/19 01:16 GENERAL: Well developed, well nourished. Awake and alert. No acute distress. HEENT: Normocephalic, atraumatic. Hearing grossly normal. Moist mucous membranes. PERRLA, EOMI. No conjunctival pallor. Sclera are non-icteric. NECK: Supple. Full ROM. No JVD. CARDIOVASCULAR: Regular rate and rhythm. No murmurs, rubs, or gallops. PULMONARY: No evidence of respiratory distress. Lungs clear to auscultation bilaterally. No wheezing, rales or rhonchi. ABDOMINAL: Soft. TTP in epigastrium. Non-distended. No rebound or guarding. GENITOURINARY: No CVA tenderness bilaterally. MUSCULOSKELETAL: Normal range of motion at all joints. No bony deformities or tenderness. EXTREMITIES: No cyanosis. No clubbing. No edema. No calf tenderness or swelling. SKIN: Warm and dry. Normal capillary refill. No rashes. No jaundice. NEUROLOGICAL: Alert, awake, appropriate. Cranial nerves 2-12 grossly intact. Normal speech. Gait is normal without ataxia. PSYCHIATRIC: Cooperative. Good eye contact. Appropriate mood and affect. ED Treatment Course - LABORATORY CBC & Chemistry Diagram: 10/03/19 01:32 10/03/19 01:00 - RADIOLOGY Radiology Studies Ordered: Category Date Time Status ABDOMEN & PELVIS CT WITH CONTR [CT] Stat CT Scan 10/03/19 01:07 Ordered CHEST PA & LAT [RAD] Stat Radiology 10/03/19 00:44 Ordered Medical Decision Making - Medical Decision Making 10/03/19 01:16 49F with MMP, prior cholecystectomy and pancreatitis, presents to the ER with epigastric pain. Pt denies drinking, smoking, or drugs. PE notable for epigastric tenderness. Will obtain CTAP and labs and treat pain symptomatically. Pending labs and imaging. 10/03/19 04:59 US Impression: Apparently, the patient had a prior cholecystectomy. There is however a 2.5 cm structure in the gallbladder fossa that resembles a gallbladder and contains stones. The possibility of gallbladder remnants should be considered.. Another possibility is that this represents a cystic structure off of a bile duct containing stones. Further evaluation recommended. Common bile duct is slightly dilated at 8.2 mm. This can be normal in a patient postcholecystectomy. However in this particular case with there are residual stones, recommend follow-up to exclude biliary stone. Normal liver. No right hydronephrosis. Right renal cyst noted. No right upper quadrant free fluid. Will d/c with GI and PCP f/u. 10/03/19 06:24 CT Impression: Surgical clips near the gallbladder fossa most likely consistent with previous partial cholecystectomy. Dilated fluid-filled structure near the gallbladder fossa with stones most likely represents a dilated remnant cystic duct with choledocholithiasis suspicious for high-grade obstruction of the cystic duct. Mildly dilated common bile duct with mild intrahepatic bile duct dilation. If clinically indicated recommend correlation with Magnetic Resonance Cholangiopancreatogram MRCP protocol MRI abdomen. Constipation. Diverticulosis without diverticulitis. Left ovary nonspecific 3.4 x 2.5 cm complex cyst. If clinically indicated recommend correlation with a Pelvic Ultrasound. Small umbilical hernia omental fat without incarceration. Discharge - Discharge Information Problems reviewed: Yes Clinical Impression/Diagnosis: Abdominal pain Qualifiers: Abdominal location: epigastric Qualified Code(s): R10.13 - Epigastric pain Condition: Good Disposition: HOME - Admission No - Follow up/Referral Referrals: Vicki Wild MD [Primary Care Provider] - - Patient Discharge Instructions Additional Instructions: Your ER visit is not complete until your follow up with your primary care and GI physician. Please follow up with your primary care physician and GI in 1-2 days. Please return to the ER if you have any signs or symptoms of chest pain, shortness of breath, uncontrollable fever, chills, nausea, vomiting, numbness, tingling, or weakness in any part of your body, changes in vision, or slurred speech. Please take your medications as prescribed. Please return to the ER if symptoms persist, worsen, or new symptoms arise. - Post Discharge Activity
[2019-10-03 01:17] LABS: INR 1.08 (0.83-1.09); PROTHROMBIN TIME (PATIENT) 12.8 SEC (9.7-13.0)
[2019-10-03] MEDS ORDERED: ACETAMINOPHEN 1000 MG/100 ML VIAL (NON FORMULARY) IVPB ONE (01:17)
[2019-10-03] MEDS ORDERED: ONDANSETRON 4 MG/2 ML VIAL ONE (01:36)
--- NOTE | 2019-10-03 01:36 | PDOC ---
Attending Attestation - Resident Resident Name: QuincyCarter - ED Attending Attestation I have performed the following: I have examined & evaluated the patient, The case was reviewed & discussed with the resident, I agree w/resident's findings & plan - HPI HPI: 10/03/19 03:15 Pt comes with epigastric pain. All began today. Yesterday she ate a lot at [employer] dinner and she had some alcohol; she rarely drinks and she denies alcohol use on a regular basis. She has - Physicial Exam PE: 10/03/19 03:15 Agree with resident exam 10/03/19 03:34 Abd soft NT ND no rebound and no guarding Pt afebrile No flank pain No edema of extremities No rashes - Medical Decision Making 10/03/19 03:14 Patient Name: WERNER RAMÍREZ THIS IS A PRELIMINARY REPORT FROM [facility] DATE OF SERVICE: 2019-10-03 01:45:58 IMAGES: 51 EXAM: Right upper quadrant abdominal ultrasound HISTORY: Right upper quadrant pain. COMPARISON: None. FINDINGS: Apparently, the patient had a prior cholecystectomy. There is however a 2.5 cm structure in the gallbladder fossa that resembles a gallbladder and contains stones. The possibility of gallbladder remnants should be considered.. Another possibility is that this represents a cystic structure off of a bile duct containing stones. Further evaluation recommended. Common bile duct is slightly dilated at 8.2 mm. This can be normal in a patient postcholecystectomy. However in this particular case with there are residual stones, recommend follow-up to exclude biliary stone. Normal liver. No right hydronephrosis. Right renal cyst noted. No right upper quadrant free fluid. 10/03/19 03:15 Pt has elevated AST >> ALT; likely due to etoh that she drank over the holidays 10/03/19 03:33 Pt feels great at this time. 10/03/19 03:34 Pt afebrile and she is ready to home. 10/03/19 03:37 Pt is stable to go home; we are awaiting a CT scan read of abd/pelvis to visualize her pancreas, as pt has a hx of pancreatitis. 10/03/19 06:10 Patient Name: WERNER RAMÍREZ THIS IS A PRELIMINARY REPORT FROM [facility] DATE OF SERVICE: 2019-10-03 02:31:15 IMAGES: 426 EXAM: CT ABDOMEN WITH CONTRAST AND CT PELVIS WITH CONTRAST HISTORY: 49 Year-Old Female Right Upper Quadrant Abdominal Pain COMPARISON: None. Contrast: 98 mL Omnipaque 350 intravenous contrast FINDINGS: Lack of oral contrast limits this exam. Mild right basilar atelectasis. Surgical clips near the gallbladder fossa most likely consistent with previous partial cholecystectomy. Dilated fluid-filled structure near the gallbladder fossa with stones most likely represents a dilated remnant cystic duct with choledocholithiasis suspicious for high-grade obstruction of the cystic duct. Mildly dilated common bile duct with mild intrahepatic bile duct dilation. Pancreas spleen and adrenal glands left kidney appear unremarkable. Right kidney cortical cyst. Lack of oral contrast limits this exam. Noncontrast evaluation stomach small bowel and appendix appear unremarkable. No appendicitis. Constipation. Diverticulosis without diverticulitis. Left ovary nonspecific 3.4 x 2.5 cm complex cyst. Uterus and bladder appear unremarkable. No free air. No free fluid. No abscess. Small umbilical hernia omental fat without incarceration. Mild degenerative disc disease. CONFIDENTIALITY NOTICE: This information is intended only for the use of the recipient(s) named above. If you are not the intended recipient, or a person responsible for delivering it to the intended recipient, you are hereby notified that any disclosure, copying, distribution or use of any of the information contained in or attached to this transmission is STRICTLY PROHIBITED. If you have received this transmission in error, please immediately notify [employer] and destroy the original transmission and its attachments without saving them in any manner [address] [facility] [address] [place] [address] Phone: [phone] ([phone]) Fax: Email: [email or web address] Web: [email or web address] Patient Information: : 1970 Order Type: Preliminary Name: DESIREE CALDERA Sex: F Study Description: CT ABDOMEN AND PELVIS Modality: CT Location: [facility] Referring Physician: QUINCY GANDHI Significant subcutaneous adipose tissue is incompletely included in the field-of -view. IMPRESSION: Surgical clips near the gallbladder fossa most likely consistent with previous partial cholecystectomy. Dilated fluid-filled structure near the gallbladder fossa with stones most likely represents a dilated remnant cystic duct with choledocholithiasis suspicious for high-grade obstruction of the cystic duct. Mildly dilated common bile duct with mild intrahepatic bile duct dilation. If clinically indicated recommend correlation with Magnetic Resonance Cholangiopancreatogram MRCP protocol MRI abdomen. Constipation. Diverticulosis without diverticulitis. Left ovary nonspecific 3.4 x 2.5 cm complex cyst. If clinically indicated recommend correlation with a Pelvic Ultrasound. Small umbilical hernia omental fat without incarceration. Pt feels great and has asolutely no pain. She is stable to go home and follow with GI as an outpatient.
[2019-10-03 01:45] LABS: ALBUMIN 3.8 g/dl (3.4-5.0); BILIRUBIN,TOTAL 0.4 mg/dL (0.2-1); CREATININE 0.9 mg/dL (0.55-1.3); POTASSIUM 4.4 mmol/L (3.5-5.1); TOT PROT 6.8 g/dl (6.4-8.2)
[2019-10-03] MEDS ORDERED: ACETAMINOPHEN INJECTION 100 ML IVPB ONE (01:47)
[2019-10-03 01:55] LABS: BASO % 0.6 % (0-2.0); EOS % 1.2 % (0-4.5); HEMATOCRIT 36.3 % (32.4-45.2); HEMOGLOBIN 11.7 GM/dL (10.7-15.3); LYMPH % 10.9 % (8-40); MCH 27.1 pg (25.7-33.7); MCHC 32.1 g/dl (32.0-36.0); MEAN CELL VOLUME 84.4 fl (80-96); MEAN PLT VOLUME 8.1 fl (7.5-11.1); MONO % 5.1 % (3.8-10.2); NEUT % 82.2 % (42.8-82.8); PLATELET COUNT 243 K/MM3 (134-434); RDW 15.3 % (11.6-15.6); WHITE BLOOD COUNT 11.3 K/mm3 (4.0-10.0)
--- NOTE | 2019-10-05 11:33 | EKG ---
Test Reason : Blood Pressure : / mmHG Vent. Rate : 068 BPM Atrial Rate : 068 BPM P-R Int : 166 ms QRS Dur : 074 ms QT Int : 402 ms P-R-T Axes : 056 027 026 degrees QTc Int : 427 ms NORMAL SINUS RHYTHM LOW VOLTAGE QRS BORDERLINE ECG WHEN COMPARED WITH ECG OF 13-JUN-2019 18:32, NO SIGNIFICANT CHANGE WAS FOUND Confirmed by TIFFANIE THAKKAR MD ([id number]) on 10/05/2019 11:32:55 AM Referred By: Confirmed By:TIFFANIE TAHKKAR MD
== END 2019-10-03 05:09 | disposition home or self-care (01) ==
LOC: JER 00:11
PROC: 3E033GC Introduction of Other Therapeutic Substance into Peripheral Vein, Percutaneous Approach (ICD-10-PCS; principal; 2019-10-03)
PROC: 3E033GC Introduction of Other Therapeutic Substance into Peripheral Vein, Percutaneous Approach (ICD-10-PCS; 2019-10-03)
PROC: 3E033NZ Introduction of Analgesics, Hypnotics, Sedatives into Peripheral Vein, Percutaneous Approach (ICD-10-PCS; 2019-10-03)
DX: R10.13 Epigastric pain (principal); K21.9 Gastro-esophageal reflux disease without esophagitis; E78.5 Hyperlipidemia, unspecified; K80.50 Calculus of bile duct without cholangitis or cholecystitis without obstruction; M06.9 Rheumatoid arthritis, unspecified; G40.909 Epilepsy, unspecified, not intractable, without status epilepticus; K59.00 Constipation, unspecified; N83.202 Unspecified ovarian cyst, left side
CPT/HCPCS: 36415; 71046-TC-FY; 74177-TC; 76705-TC; 80053; 83690; 84703; 85025; 85610; 87077; 87086; 93005; 93010; 99283-25; J0131; J7030

== ENCOUNTER 2019-10-03 09:00 | Emergency (ER) | payer OTHER ==
[2019-10-03 09:10] VITALS: TEMP 97.8; BMI 22.2
[2019-10-03] MEDS ORDERED: SODIUM CHLORIDE 1,000 ML IV STA ×2 (10:34→13:17)
[2019-10-03 11:44] LABS: BASO % 0.8 % (0-2.0); EOS % 0.5 % (0-4.5); HEMATOCRIT 34.3 % (32.4-45.2); HEMOGLOBIN 11.2 GM/dL (10.7-15.3); LYMPH % 9.8 % (8-40); MCH 27.3 pg (25.7-33.7); MCHC 32.7 g/dl (32.0-36.0); MEAN CELL VOLUME 83.6 fl (80-96); MEAN PLT VOLUME 7.9 fl (7.5-11.1); MONO % 6.4 % (3.8-10.2); NEUT % 82.5 % (42.8-82.8); PLATELET COUNT 244 K/MM3 (134-434); RDW 15.8 % (11.6-15.6); WHITE BLOOD COUNT 9.4 K/mm3 (4.0-10.0)
--- NOTE | 2019-10-03 11:44 | PDOC ---
Documentation entered by Sydni Lacy SCRIBE, acting as scribe for Lashell Andrade MD. Lashell Andrade MD: This documentation has been prepared by the Regino kuhn Brenda, SCRIBE, under my direction and personally reviewed by me in its entirety. I confirm that the documentation accurately reflects all work, treatment, procedures, and medical decision making performed by me. 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 As per patient, she was in the ED last night for 2 episodes of vomiting, nausea and upper abdominal pain. Pt had an US and CTAP, felt better and was discharged. Upon arrival at home, she experienced symptoms of indigestion and gas, which went away but then she reports epigastric and right upper quadrant pain and chills, prompting her to call 911. Did not experience any vomiting with this episode of pain but does report nausea. Patient is currently asymptomatic. The patient denies chest pain, shortness of breath, headache and dizziness. Denies fever, diarrhea and constipation. Denies dysuria, frequency, urgency and hematuria. Allergies: NKA Past surgical history: Brain Surgery for AVM, residual left sided weakness (1988 ). Cholecystectomy, unsure if partial or full (January 2019) Social history: No tobacco use, or illicit drug use. PCP: Vicki Donis Surgeon: Dr. Henry Evans Past History - Past Medical History Allergies/Adverse Reactions: Allergies Allergy/AdvReac Type Severity Reaction Status Date / Time No Known Allergies Allergy Verified 10/03/19 00:23 COPD: No GI Disorders: Yes Hypercholesterolemia: Yes Seizures: Yes - Surgical History Cholecystectomy: Yes Neurologic Surgery: Yes (BRAIN in 1988) - Psycho Social/Smoking Cessation Hx Smoking History: Never smoked Have you smoked in the past 12 months: No Hx Alcohol Use: No Drug/Substance Use Hx: No Substance Use Type: None Review of Systems - Review of Systems Able to Perform ROS?: Yes Comments:: 10/03/19 11:05 "GENERAL/CONSTITUTIONAL: (+) Chills. No fever. No weakness. HEAD, EYES, EARS, NOSE AND THROAT: No change in vision. No ear pain or discharge. No sore throat. GASTROINTESTINAL: (+) Nausea (+) Vomiting. No diarrhea or constipation. GENITOURINARY: No dysuria, frequency, or change in urination. CARDIOVASCULAR: No chest pain or shortness of breath. RESPIRATORY: No cough, wheezing, or hemoptysis. MUSCULOSKELETAL: No joint or muscle swelling or pain. No neck or back pain. SKIN: No rash NEUROLOGIC: No headache, vertigo, loss of consciousness, or change in strength/ sensation. ENDOCRINE: No increased thirst. No abnormal weight change. HEMATOLOGIC/LYMPHATIC: No anemia, easy bleeding, or history of blood clots. ALLERGIC/IMMUNOLOGIC: No hives or skin allergy." *Physical Exam - Vital Signs Last Vital Signs Temp Pulse Resp BP Pulse Ox 97.8 F 71 22 H 103/67 98 10/03/19 09:08 10/03/19 09:08 10/03/19 09:08 10/03/19 09:08 10/03/19 09:08 - Physical Exam 10/03/19 11:04 GENERAL: Awake, alert, and fully oriented, in no acute distress EYES: PERRLA, EOMI, sclera anicteric, conjunctiva clear ENT: Auricles normal inspection, hearing grossly normal, nares patent. Moist mucosa NECK: Normal ROM, supple, no lymphadenopathy, JVD, or masses LUNGS: Breath sounds equal, clear to auscultation bilaterally. No wheezes, and no crackles HEART: Regular rate and rhythm, normal S1 and S2, no murmurs, rubs or gallops ABDOMEN: Soft, nontender, normoactive bowel sounds. No guarding, no rebound. No masses EXTREMITIES: Normal range of motion, no edema. No cords, erythema, or tenderness BACK: No midline spinal tenderness in cervical/thoracic/lumbar region NEUROLOGICAL: Normal speech, cranial nerves intact, equal strength and sensation b/l SKIN: Warm, Dry, normal turgor, no rashes or lesions noted. Heart Score/ECG Review #1 10/03/19 10:55 Twelve-lead EKG was performed and reviewed by me. Normal sinus rhythm, rate 77. Normal axis and intervals. No ST elevations. Isolated T wave inversion in lead III. ED Treatment Course - LABORATORY CBC & Chemistry Diagram: 10/03/19 11:30 10/03/19 11:30 Medical Decision Making - Medical Decision Making 10/03/19 10:50 49-year-old female with a history of rheumatoid arthritis on naproxen and methotrexate, hyperlipidemia, cholecystectomy in May 2019 presents to the emergency department for the second time in 1 day for epigastric pain. On review of patient's last ER visit, CT scan imaging concerning for possible choledocholithiasis. Ultrasound also revealed either dilated cystic duct with debris versus partial gallbladder remnant with stones. Patient had her cholecystectomy here by Dr. Calderón, however was noted to have possible cystic remnant and was referred to at [facility] for follow-up. Patient had an MRI 1 week ago for routine follow-up, but does not know the results yet. Concern for possible choledocholithiasis versus cholecystitis versus pancreatitis. Labs reviewed from last night. Will repeat labs specifically, LFTs/lipase at this time to see if there is any change. Plan to discuss with patient's surgeon at [facility] for disposition as well. Patient currently does not have any pain and declines pain medication. Called Dr. Bass at , (10:50am) to no answer. Called Dr. Chico Evans at (11:05am), at [facility] , to no answer. 10/03/19 13:58 Lipase 17K consistent with pancreatitis. Patient is receiving second liter of fluids at this time. Bilirubin is within normal limits patient does not appear infected and thus will hold off on antibiotics. CT scan from overnight with normal-appearing pancreas. Case discussed with patient's hepatobiliary surgeon at [facility] who requests transfer to [facility] to the hepatobiliary service for further mgmt. Plan discussed with patient who consents for transfer. Transfer paperwork filled. Imaging from overnight ED visit including ultrasound and CAT scan have been sent over the PACS system to [facility]. At this time we are awaiting transportation for transfer. Discharge - Discharge Information Problems reviewed: Yes Clinical Impression/Diagnosis: Choledocholithiasis, Pancreatitis, Gallstone pancreatitis Condition: Stable Disposition: TRANSFER ACUTE CARE/OTHER HOSP - Follow up/Referral Referrals: Vicki Wild MD [Primary Care Provider] - - Patient Discharge Instructions - Post Discharge Activity - Transfer to Acute Care Facility Receiving Facility Name: [facility] Accepting Physician:: Dr. Enciso
[2019-10-03 12:05] LABS: ALBUMIN 3.8 g/dl (3.4-5.0); BILIRUBIN,TOTAL 0.4 mg/dL (0.2-1); BLOOD UREA NITROGEN 11.9 mg/dL (7-18); CALCIUM 8.6 mg/dL (8.5-10.1); CREATININE 0.7 mg/dL (0.55-1.3); POTASSIUM 3.8 mmol/L (3.5-5.1); TOT PROT 6.7 g/dl (6.4-8.2)
[2019-10-03 12:25] LABS: INR 1.08 (0.83-1.09); PROTHROMBIN TIME (PATIENT) 12.8 SEC (9.7-13.0)
[2019-10-03 12:31] LABS: LIPASE 17513 U/L (73-393)
[2019-10-03 12:44] LABS: URINE APPEARANCE CLOUDY; URINE BILIRUBIN NEGATIVE (NEGATIVE); URINE COLOR YELLOW; URINE GLUCOSE (UA) NEGATIVE (NEGATIVE); URINE KETONE 15 mg/dl (NEGATIVE); URINE PROTEIN NEGATIVE (NEGATIVE)
[2019-10-03 12:45] LABS: URINE LEUK ESTERASE NEGATIVE (NEGATIVE); URINE NITRITE NEGATIVE (NEGATIVE)
[2019-10-03 13:42] VITALS: BP 104/63; PULSE 92
--- NOTE | 2019-10-05 11:00 | EKG ---
Test Reason : Blood Pressure : / mmHG Vent. Rate : 077 BPM Atrial Rate : 077 BPM P-R Int : 170 ms QRS Dur : 082 ms QT Int : 390 ms P-R-T Axes : 060 025 026 degrees QTc Int : 441 ms NORMAL SINUS RHYTHM NORMAL ECG WHEN COMPARED WITH ECG OF 03-OCT-2019 01:26, NO SIGNIFICANT CHANGE WAS FOUND Confirmed by TIFFANIE THAKKAR MD ([id number]) on 10/05/2019 10:59:26 AM Referred By: Confirmed By:TIFFANIE THAKKAR MD
== END 2019-10-03 14:35 | disposition short-term general hospital (02) ==
LOC: JER 09:00
DX: K80.50 Calculus of bile duct without cholangitis or cholecystitis without obstruction (principal); K86.1 Other chronic pancreatitis; Q44.4 Choledochal cyst; K21.9 Gastro-esophageal reflux disease without esophagitis; M06.9 Rheumatoid arthritis, unspecified; Z90.49 Acquired absence of other specified parts of digestive tract; Z87.74 Personal history of (corrected) congenital malformations of heart and circulatory system
CPT/HCPCS: 36415; 71046-TC-FY; 74177-TC; 76705-TC; 80053; 81003; 83690; 83735; 84484; 84703; 85025; 85610; 85730; 87077; 87086; 93005; 93010; 99283-25; 99285-25; J0131; J7030

== ENCOUNTER 2020-06-29 04:20 | Day surgery (SDC) | payer OTHER ==
[2020-06-28 15:49] VITALS: BMI 26.4
[2020-06-29 10:29] LABS: HEMATOCRIT 39.7 % (32.4-45.2); HEMOGLOBIN 13.1 GM/dL (10.7-15.3); MCHC 32.9 g/dl (32.0-36.0); MEAN CELL VOLUME 88.1 fl (80-96); MEAN PLT VOLUME 8.6 fl (7.5-11.1); PLATELET COUNT 247 K/MM3 (134-434); RDW 17.1 % (11.6-15.6); WHITE BLOOD COUNT 5.5 K/mm3 (4.0-10.0)
[2020-06-29] MEDS ORDERED: ONDANSETRON 4 MG/2 ML VIAL IVPUSH PRN ×2 (11:58→13:23)
[2020-06-29] MEDS ORDERED: ACETAMINOPHEN 325 MG TABLET (FP) PO PRN (11:58)
[2020-06-29] MEDS ORDERED: IBUPROFEN 400 MG TABLET (FP) PO PRN (11:58)
--- NOTE | 2020-06-29 12:03 | HP ---
Admitting History and Physical - Admission History of Present Illness: 50 yo postmenopausal woman with cc of postcoital bleeding inital evaluation with ultrasound revealed thickened endometrial stripe, s/p endometrial biopsy with insufficient tissue continued postcoital bleeding, here for surgical management initial surgery was postponed secondary to covid pandemic Also noted to have skin tag, desires removal Limitations to Obtaining History: No Limitations - Past Medical History Cardiovascular: Yes: Hyperlipdemia Gastrointestinal: Yes: Other (colon polyps removed by Dr. Duffy last year) Hepatobiliary: Yes: Cholelithiasis ...LMP: 03/04/17 ...: No Rheumatology: Yes: Rheumatoid Arthritis - Past Surgical History Past Surgical History: Yes: Breast Biopsy, Cholecystectomy, Colonoscopy, C- Section - Smoking History Smoking history: Never smoked Have you smoked in the past 12 months: No - Alcohol/Substance Use Hx Alcohol Use: No History of Substance Use: reports: None - Social History ADL: Independent Occupation: bookeeper History of Recent Travel: No Home Medications - Allergies Allergies/Adverse Reactions: Allergies Allergy/AdvReac Type Severity Reaction Status Date / Time No Known Allergies Allergy Verified 06/29/20 11:30 - Home Medications Home Medications: Ambulatory Orders Aspirin [Aspirin EC] 81 mg PO DAILY 06/28/20 Atorvastatin Ca [Lipitor] 10 mg PO HS 06/28/20 Baclofen 10 mg PO BID 06/28/20 Naproxen [Naprosyn -] 500 mg PO BID 06/28/20 Omeprazole 20 mg PO DAILY 06/28/20 Family Medical History Family History: Denies Review of Systems - Review of Systems Constitutional: reports: No Symptoms Cardiovascular: reports: No Symptoms Respiratory: reports: No Symptoms Gastrointestinal: reports: No Symptoms Genitourinary: reports: No Symptoms Psychiatric: reports: No Symptoms Physical Examination Vital Signs: Vital Signs Temperature 97.8 F 06/29/20 11:24 Pulse Rate 91 H 06/29/20 11:24 Respiratory Rate 20 06/29/20 11:24 Blood Pressure 107/60 06/29/20 11:24 O2 Sat by Pulse Oximetry (%) 96 06/29/20 11:24 Constitutional: Yes: Well Nourished, No Distress, Calm Cardiovascular: Yes: Regular Rate and Rhythm Respiratory: Yes: Regular, CTA Bilaterally Edema: No Psychiatric: Yes: Alert, Oriented Labs: CBC, BMP 06/29/20 10:12 Assessment/Plan 50 yo for hysteroscopy, D&C, skin tag removal 1. consents reviewed and signed reviewed risks including but not limited to infection, bleeding, damage to surrounding organs such as bowel and bladder, uterine perofration 2. routine labs reviewed 3. SCDs for DVT prophylaxis 4. Will proceed to OR
[2020-06-29] MEDS ORDERED: BUPIVACAINE HCL/PF 0.5% (5 MG/ML) 30 ML VIAL IJ ONE (12:55)
[2020-06-29] MEDS ORDERED: PROMETHAZINE HCL 25 MG/1 ML VIAL IVPUSH PRN (13:23)
[2020-06-29] MEDS ORDERED: oxyCODONE HCL 5 MG TABLET PO PRN (13:23)
--- NOTE | 2020-06-29 13:41 | OP ---
Operative Note - Note: Operative Date: 06/29/20 Pre-Operative Diagnosis: postmenopausal/ postcoital bleeding, skin tag Operation: hysteroscopy, dilation and curettage, skin tag removal Findings: atrophic appearing endometrium, bilateral ostia visualized, skin tag Post-Operative Diagnosis: Same as Pre-op Surgeon: Elissa Coates Anesthesiologist/RESIDENTIAL DOOR INSTALLER: Otf Antonio Anesthesia: General Specimens Removed: 1. skin tag; 2. endometrial curetting Estimated Blood Loss (mls): 5 Fluid Volume Replaced (mls): 500 Operative Report Dictated: Yes
[2020-06-29 16:47] VITALS: BP 105/63; PULSE 76; TEMP 97.1
--- NOTE | 2020-06-29 20:18 | OP ---
DATE OF OPERATION: 06/29/2020 PREOPERATIVE DIAGNOSES: Coital bleeding, thickened endometrial lining. POSTOPERATIVE DIAGNOSES: Coital bleeding, thickened endometrial lining. SURGEON: Lise Coates MD ANESTHESIOLOGIST: Otf Antonio MD ANESTHESIA: General anesthesia. FLUIDS GIVEN: 500. ESTIMATED BLOOD LOSS: 5. PROCEDURE: Hysteroscopy, dilation and curettage, and skin tag removal. Patient is a 50-year-old, postmenopausal woman who was found with post-coital bleeding, found to have a thickened endometrium, status post attempted endometrial biopsy in office with scant endometrial tissue, with continued post-coital bleeding, counseled on observation and D&C and skin tag removal. She opted for surgical proceeding. Risks, benefits, alternatives, and complications of the procedure were discussed including infection, bleeding, damage to surrounding organs, uterine perforation. She expressed understanding and was brought to the operating room. When anesthesia was found to be adequate, patient was prepped and draped in normal sterile fashion, placed in dorsal lithotomy position using Wayne stirrups. A Reyes retractor was placed in the posterior vagina. Anterior lip of the cervix was grasped using a single-tooth tenaculum. Cervix was gently dilated to approximately 23-Syriac, and the hysteroscope was placed. Atrophic endometrial cavity and bilateral ostia were visualized. A gentle, sharp curetting was performed. A right gluteal skin tag was noted and removed. A 3-0 Vicryl was placed. Good hemostasis was noted. All instruments were removed from the patient's vagina. Patient tolerated the procedure well. Estimated blood loss was 5 mL. Patient was awoken from anesthesia and brought to recovery room in stable condition. LISE COATES M.D. [id number]
--- NOTE | 2020-07-04 15:02 | PATH ---
Surgical Pathology Report Patient Name: WERNER RAMÍREZ [facility]. Rec. #: [id number] /Age/Gender: 1970 (Age: 50) / F Account: [id number] Location: [facility] SUR[facility]ICAL Taken: 06/29/2020 Received: 06/30/2020 Reported: 07/04/2020 Physicians: Elissa Coates Specimen(s) Received A: SKIN TAG B: ENDOMETRIAL CURETTINGS Clinical History Postcoital and compact bleeding Final Diagnosis A. SKIN TAG, EXCISION: SEGMENT OF SKIN WITH INTRADERMAL NEVUS. Comment: Immunohistochemical stain S100 performed and interpreted at [facility] highlighting the nevus cells in the dermis, confirms the above diagnosis. B. ENDOMETRIAL CURETTINGS: NO ENDOMETRIAL TISSUE PRESENT. ENDOCERVICAL TISSUE AND SQUAMOUS EPITHELIUM WITH MARKED INFLAMMATION. Electronically Signed Yolanda Parker M.D. Gross Description A. Received in formalin, labeled "skin helm" is a portion of polypoid skin measuring 0.5 cm in greatest dimension. The specimen is entirely submitted one cassette. B. Received in formalin, labeled "endometrial curettings" it's a portion of helm soft tissue measuring 0.4 cm in greatest dimension, admixed with blood clot (1 x 1 x 0.1 cm aggregate). The specimen is entirely submitted in one cassette. __ KWShakira/06/30/2020 shaka/06/30/2020
== END 2020-06-29 15:30 | disposition home or self-care (01) ==
LOC: JASU-SURG 04:20
PROVIDERS: ATTEND Obstetrics & Gynecology
PROC: 0UJD8ZZ Inspection of Uterus and Cervix, Via Natural or Artificial Opening Endoscopic (ICD-10-PCS; 2020-06-29)
PROC: 0UDB7ZX Extraction of Endometrium, Via Natural or Artificial Opening, Diagnostic (ICD-10-PCS; principal; 2020-06-29 12:00)
DX: N93.0 Postcoital and contact bleeding (principal); N85.00 Endometrial hyperplasia, unspecified
CPT/HCPCS: 36415; 85027; 86850; 86900; 86901; 88305-TC; 88342-TC; 94760